=== PATIENT | female | born 1940 | race Caucasian/White ===

== ENCOUNTER 2017-10-17 12:08 | Outpatient (CLI) | payer OTHER | END 2017-10-17 12:09 | disposition home or self-care (01) | LOC: MWLC DTY 12:08 | PROVIDERS: ATTEND Family Medicine | DX: Z51.81 Encounter for therapeutic drug level monitoring (principal); I48.91 Unspecified atrial fibrillation; Z79.01 Long term (current) use of anticoagulants | CPT/HCPCS: 97802 ==

== ENCOUNTER 2018-04-04 12:52 | Inpatient (IN) | payer MEDICARE ==
[2018-04-04 14:35] LABS: #Eosinphils 0.1 thou/uL (0.0-0.7); #Lymphocytes 1.4 thou/uL (1.20-3.40); #Monocytes 0.5 thou/uL (0.11-0.59); #Neutrophils 4.8 thou/uL (1.40-6.50); %Basophils 0.3 % (0.0-1.0); %Eosinophils 1.6 % (0.0-10.0); %Lymphocytes 20.9 % (21.0-51.0); %Monocytes 7.3 % (0.0-10.0); %Neutrophils 69.9 % (42.0-75.0); Hemoglobin 15.4 g/dL (12.0-16.0); Mean Corpuscular HGB CONC 31.6 g/dL (32.0-36.0); Mean Corpuscular Hemoglobin 30.1 pg (27.0-31.0); Mean Corpuscular Volume 95.3 fL (78.0-98.0); Platelet Count 158 thou/uL (130-400); RBC Distribution Width 13.3 % (11.5-14.5); Red Blood Cell (RBC) Count 5.11 mill/uL (4.20-5.40); White Blood Cell (WBC) Count 6.9 thou/uL (4.8-10.8)
[2018-04-04 14:58] LABS: INR-International Normal Ratio 1.2; PTT 34.7 SEC (22.9-36.1); Prothrombin Time 14.9 SEC (12.0-14.7)
[2018-04-04 14:59] LABS: ALT (SGPT) 29 U/L (8-55); AST (SGOT) 28 U/L (5-34); Albumin 4.3 g/dL (3.4-4.8); Alkaline Phosphatase 78 U/L (40-150); Anion Gap 15 mmol/L (10-20); BUN (Urea Nitrogen) 12 mg/dL (9.8-20.1); Bilirubin, Total 1.5 mg/dL (0.2-1.2); CK (CPK) 46 U/L (29-168); Calc. Creatinine Clearance 0 mL/min (70-130); Carbon Dioxide 23 mmol/L (23-31); Chloride 104 mmol/L (98-107); Estimated GFR-MDRD 38; Globulin 3.4 g/dL (2.4-3.5); Glucose 253 mg/dL (83-110); Protein, Total 7.7 g/dL (6.0-8.3); Sodium 138 mmol/L (136-145)
[2018-04-04 15:04] LABS: CKMB 2.5 ng/mL (0-6.6); Troponin I 0.107 ng/mL (< 0.028)
[2018-04-04 15:07] LABS: Digoxin Less than 0.15 ng/mL (0.8-2.0)
--- NOTE | 2018-04-04 15:46 | RAD ---
UPRIGHT PORTABLE CHEST ONE VIEW: 04/04/18 HISTORY: 77-year-old female with history of dyspnea. There is cardiomegaly. Left ICD. Bilateral vascular congestion with some minimal interstitial and ethan eolar opacity changes in the right lung with bilateral pleural effusions, larger on the right side. T here is evidence for a hiatal hernia. Evidence for valvular replacement. IMPRESSION: Cardiomegaly. Bilateral vascular congestion with some increased interstitial markings bilaterally. Mo derate pleural changes including some pleural fluid or pleural thickening within the major fissure as well as costophrenic angle regions. Postop changes with what appears to be some valvular replacement and a left ICD. Atherosclerosis of the aorta with ectasia. Evidence for large hiatal hernia. Overall stable from 04/04/18. POS: FANG
[2018-04-04] MEDS ORDERED: Furosemide 40 MG/4 ML VIAL ONE (15:57)
[2018-04-04] MEDS ORDERED: Nitroglycerin 2% Ointment 1 INCH/1 GM Packet ONE (15:57)
[2018-04-04] MEDS ORDERED: Labetalol HCl 100 MG/20 ML VIAL ONE (17:12)
[2018-04-04 18:03] LABS: Troponin I 0.129 ng/mL (< 0.028)
[2018-04-04] MEDS ORDERED: Ondansetron PF 4 MG/2 ML Vial IVP PRN ×2 (18:08→18:52)
[2018-04-04] MEDS ORDERED: Ondansetron ODT 4 MG TAB SL PRN (18:08)
[2018-04-04] MEDS ORDERED: Dextrose 50% Abboject 50 ML SYRINGE SLOW IVP PRN (18:52)
[2018-04-04] MEDS ORDERED: Ondansetron ODT 4 MG TAB PO PRN (18:52)
[2018-04-04] MEDS ORDERED: hydrALAZINE 20 MG/ML VIAL SLOW IVP PRN (18:52)
[2018-04-04] MEDS ORDERED: HumaLOG 300 UNITS/3 ML VIAL SC PRN ×2 (18:52)
[2018-04-04] MEDS ORDERED: Dextrose 5% in Water 1,000 ML IV PRN (18:52)
[2018-04-04 21:06] LABS: Troponin I 0.103 ng/mL (< 0.028)
--- NOTE | 2018-04-04 23:12 | HP ---
PRIMARY CARE PHYSICIAN: Suzanne Dorna M.D. CHIEF COMPLAINT: Shortness of breath. HISTORY OF PRESENT ILLNESS: Ms. Collazo is a very pleasant 77-year-old female that has a history of n onischemic cardiomyopathy as well as hypertension and diabetes. She says that on Saturday she was dixie g shopping for a friend when she says she started getting short of breath and it got so bad that she had to try to find a chair to sit down and catch her breath. Since then it has gotten progressively worse to the point where she has shortness of breath with very minimal exertion. She also says that she cannot sleep because she cannot breathe. She has to try different positions trying to stay propp ed up, turning over using pillows, but has barely been able to get any rest. She feels like she has increase in leg swelling as well. When asked if she has had any chest pain, she denies this. No pal pitations, no discharges from the defibrillator. No nausea, no vomiting, no diaphoresis; however, th e shortness of breath got progressively worse until she had to come to the ER for evaluation and yadira tment. In the ER, she was given some IV Lasix as well as nitropatch was placed and she is feeling a bit better since then. REVIEW OF SYSTEMS: All systems are reviewed and are negative except for that mentioned in the histor y of present illness. 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 PAST SURGICAL HISTORY: She has had a tonsillectomy, cardiac catheterization, appendectomy, biventric ular pacer with AICD placed in 2013, cholecystectomy and breast biopsy. ALLERGIES: No known drug allergies. SOCIAL HISTORY: She is single. No children. She is a nonsmoker, nondrinker. She wishes to be a fu ll code; however, she would not want to be on life support for a long time, but is " FULL CODE." Her friend Allan Bruhs is her medical power of barber tool sharpener. FAMILY HISTORY: Unknown due to the fact that she is adopted. MEDICATIONS: She did not know the names and doses of her medicines right off the top of her head. S he says they are in her records and these include warfarin 2.5 mg daily, Aldactone 25 mg 1/2 tablet a day, Lexapro 10 mg daily, Lipitor 20 mg daily, levothyroxine 137 mcg daily, allopurinol 100 mg twice a day, Lasix 40 mg twice daily, digoxin 0.125 mcg daily, Coreg 6.25 mg twice a day, glipizide 10 mg 2 tablets in the morning and one at dinner. PHYSICAL EXAMINATION: GENERAL: She is alert and oriented. She appears to be in no acute distress. She is well-developed and well-nourished. VITAL SIGNS: Blood pressure was 160/120, heart rate 78, respiratory rate of 20, temperature is 97.4. HEENT: Pupils are equal, round, and reactive. Extraocular muscles are intact. Her sclerae are anic teric. Throat: There is no erythema, no exudates. NECK: No adenopathy, no bruits. LUNGS: She had some rales bilaterally and decreased breath sounds at the bases. No wheezing or rhon chi. CARDIOVASCULAR: She has a normal S1 and S2. She did have what appear to be an S3 gallop as well as grade 2/6 systolic murmur. ABDOMEN: Obese, it is soft, it is nontender, nondistended. Positive for bowel sounds. There is no rebound, no guarding, no organomegaly. EXTREMITIES: There is nonpitting edema bilaterally. No calf tenderness. No joint effusion or warmt h and she has got palpable dorsalis pedis pulses bilaterally. NEUROLOGIC: Cranial nerves II-XII are grossly intact and her muscle strength is 5/5 in both her uppe r and lower extremities. SKIN AND INTEGUMENT: There are no skin changes. No rash. IMAGING DATA AND LABORATORY DATA: Her EKG is ventricularly paced and that is by my reading. On her chest x-ray also by my reading, she has got significant cardiomegaly as well as bilateral interstitia l edema appears more on the right than on the left. The AICD with leads are noted. CBC; white blood cell count 6.9, hemoglobin 15.4, hematocrit is 48.7, platelet count is 158. Sodium 138, potassium 4 .0, chloride is 104, CO2 is 23, BUN of 12, creatinine 1.34, glucose is 254. Troponin is 0.107, BNP w as elevated at 2206. ASSESSMENT AND PLAN: This is a pleasant 77-year-old female that presents with dyspnea on exertion, r ales and on exam as well as radiographic evidence for failure. 1. Acute on chronic systolic heart failure. She will be placed in observation. Continue IV Lasix f or diuresis. It appears she has not had a recent echo at least in our facility. 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 2. Diabetes mellitus, type 2. We will need to reconcile and restart her home medications and place her on a sliding scale insulin. 3. Hypertension. Once again reconcile her medications and restart as indicated. 4. Hypothyroidism. We will check TSH and free T4 and restart her medications, adjust as needed and further recommendations are to follow.
[2018-04-04] MEDS ORDERED: Atorvastatin Calcium 20 MG TAB PO SCH (23:45)
[2018-04-04] MEDS ORDERED: Warfarin Sodium 2.5 MG TAB PO SCH (23:45)
[2018-04-04] MEDS ORDERED: Latanoprost 0.005% Ophth Soln 2.5 ml Bottle EA EYE SCH (23:45)
[2018-04-05] MEDS: Acetaminophen 325 MG TAB PO PRN (00:45)
[2018-04-05 04:53] LABS: #Basophils 0.1 thou/uL (0.0-0.2); #Eosinphils 0.1 thou/uL (0.0-0.7); #Lymphocytes 1.4 thou/uL (1.20-3.40); #Monocytes 0.6 thou/uL (0.11-0.59); #Neutrophils 4.6 thou/uL (1.40-6.50); %Eosinophils 0.9 % (0.0-10.0); %Lymphocytes 20.4 % (21.0-51.0); %Monocytes 8.6 % (0.0-10.0); Hemoglobin 14.7 g/dL (12.0-16.0); Mean Corpuscular Hemoglobin 30.5 pg (27.0-31.0); Mean Corpuscular Volume 95.6 fL (78.0-98.0); Mean Platelet Volume 9.2 fL (7.4-10.4); Platelet Count 150 thou/uL (130-400); RBC Distribution Width 13.1 % (11.5-14.5); White Blood Cell (WBC) Count 6.7 thou/uL (4.8-10.8)
[2018-04-05 05:12] LABS: Anion Gap 16 mmol/L (10-20); BUN (Urea Nitrogen) 15 mg/dL (9.8-20.1); Calc. Creatinine Clearance 40 mL/min (70-130); Calcium 9.9 mg/dL (7.8-10.44); Carbon Dioxide 20 mmol/L (23-31); Chloride 104 mmol/L (98-107); Estimated GFR-MDRD 38; Glucose 232 mg/dL (83-110); Potassium 3.2 mmol/L (3.5-5.1); Sodium 137 mmol/L (136-145)
[2018-04-05] MEDS ORDERED: Levothyroxine Sodium 112 MCG TAB PO SCH (06:00)
[2018-04-05] MEDS ORDERED: Furosemide 40 MG/4 ML VIAL SLOW IVP SCH (06:00)
[2018-04-05] MEDS ORDERED: Enoxaparin Sodium 30 MG/0.3 ML SYRINGE SC SCH (09:00)
[2018-04-05] MEDS ORDERED: Warfarin Sodium 1.25 MG HALF.TAB PO SCH (10:45)
[2018-04-05] MEDS ORDERED: Ferrous Sulfate 325 MG TAB PO SCH (11:45)
[2018-04-05] MEDS ORDERED: Potassium Chloride 10 MEQ TAB PO SCH (11:45)
[2018-04-05] MEDS ORDERED: Carvedilol 6.25 MG TAB PO SCH (11:45)
[2018-04-05] MEDS ORDERED: Spironolactone 25 MG TAB PO SCH (11:45)
[2018-04-05] MEDS ORDERED: Insulin Glargine 28 UNITS in Pre-Filled Syringe SC SCH (11:45)
[2018-04-05] MEDS ORDERED: Escitalopram Oxalate 10 mg Tablet PO SCH (11:45)
[2018-04-05] MEDS ORDERED: Allopurinol 100 MG TAB PO SCH (11:45)
[2018-04-05] MEDS ORDERED: Digoxin 0.125 MG TAB PO SCH ×2 (11:45→20:00)
[2018-04-05 11:55] LABS: INR-International Normal Ratio 1.2; Prothrombin Time 15.3 SEC (12.0-14.7)
[2018-04-05] MEDS: Furosemide 20 MG/2 ML VIAL SLOW IVP SCH (14:07)
--- NOTE | 2018-04-05 14:55 | PDOC.PN ---
- Subjective Encounter Start Date: 04/05/18 Encounter Start Time: 14:54 Subjective: nsg notes rev, cristobal ovn, no new c/o pt feels that her breathing is currently -: improved compared to yesterday after lasix - Objective Resuscitation Status: Resuscitation Status FULL:Full Resuscitation Vital Signs & Weight: Vital Signs (12 hours) Temp Pulse Resp BP BP Pulse Ox 04/05/18 12:14 97.8 F 77 16 139/87 93 L 04/05/18 12:12 139/87 04/05/18 12:11 77 04/05/18 07:36 97.3 F L 73 14 143/95 H 97 04/05/18 04:00 97.6 F 79 18 136/86 95 Weight Weight 160 lb 14.4 oz I&O: 04/04/18 04/05/18 04/06/18 06:59 06:59 06:59 Intake Total 280 240 Output Total 800 Balance -520 240 Result Diagrams: 04/05/18 04:01 04/05/18 04:01 Additional Labs: Accuchecks 04/05/18 04/05/18 04/04/18 12:05 05:24 20:55 POC Glucose 309 H 228 H 254 H Phys Exam - Physical Examination Constitutional: NAD lying in hosp bed HEENT: moist MMs Respiratory: no wheezing, no rales, no rhonchi, clear to auscultation bilateral diminished, marginal air mvmt with faint bibasilar crackles Cardiovascular: RRR, no significant murmur, no rub Gastrointestinal: soft, non-tender, no distention, positive bowel sounds Musculoskeletal: pulses present Psychiatric: normal affect, A&O x 3 Dx/Plan - Plan CHF exac continue with lasix 20mg IV BID pending ECHO results apprec cardiology c/s continue to monitor hx CHF continue home regimen otherwise HTN stable DM2 stable diet: cardiac, diabetic activity: as jarret dvt ppx Review of Systems - Medications/Allergies Allergies/Adverse Reactions: Allergies Allergy/AdvReac Type Severity Reaction Status Date / Time No Known Allergies Allergy Verified 09/16/15 20:07 Medications: Current Medications Acetaminophen (Tylenol) 650 mg PO Q4H PRN PRN Reason: Headache/Fever/Mild Pain (1-3) Last Admin: 04/05/18 00:45 Dose: 650 mg Allopurinol (Zyloprim) 100 mg PO BID REPLACED BY [facility] Atorvastatin Calcium (Lipitor) 20 mg PO HS REPLACED BY [facility] Carvedilol (Coreg) 6.25 mg PO BID REPLACED BY [facility] Dextrose/Water (Dextrose 50%) 25 gm SLOW IVP PRN PRN PRN Reason: Hypoglycemia Digoxin (Lanoxin) 0.125 mg PO DAILY REPLACED BY [facility] Escitalopram Oxalate (Lexapro) 10 mg PO DAILY REPLACED BY [facility] Ferrous Sulfate (Feosol) 325 mg PO DAILY REPLACED BY [facility] Furosemide (Lasix) 20 mg SLOW IVP 0600,1400 REPLACED BY [facility] Last Admin: 04/05/18 14:07 Dose: 20 mg Glipizide (Glucotrol Xl) 5 mg PO BID-AC REPLACED BY [facility] Glucagon (Glucagon) 1 mg IM PRN PRN PRN Reason: Hypoglycemia Hydralazine HCl (Apresoline) 10 mg SLOW IVP Q4H PRN PRN Reason: SBP > 180 and HR < 70 Dextrose/Water (D5w) 1,000 mls @ 0 mls/hr IV .Q0M PRN PRN Reason: Hypoglycemia Insulin Glargine 28 units/ (Miscellaneous Medication) 0.28 mls @ 0 mls/hr SC BID REPLACED BY [facility] Insulin Human Lispro (Humalog) 0 units SC .MILD SLIDING SCALE PRN PRN Reason: Mild Correctional Scale Last Admin: 04/05/18 12:21 Dose: 5 unit Insulin Human Lispro (Humalog) 0 units SC .BEDTIME SLIDING SC PRN PRN Reason: Bedtime Correctional Scale Last Admin: 04/05/18 05:23 Dose: 3 unit Latanoprost (Xalatan 0.005% [facility]) 1 drop EA EYE HS REPLACED BY [facility] Levothyroxine Sodium (Synthroid) 112 mcg PO 0600 REPLACED BY [facility] Miscellaneous Medication (Pharmacy To Dose) 1 each PO .WARFARIN REPLACED BY [facility] Ondansetron HCl (Zofran Odt) 4 mg PO Q6H PRN PRN Reason: Nausea/Vomiting Ondansetron HCl (Zofran) 4 mg IVP Q6H PRN PRN Reason: Nausea/Vomiting Potassium Chloride (Klor-Con 10) 10 meq PO QAM-WM REPLACED BY [facility] Sertraline HCl (Zoloft) 50 mg PO HS REPLACED BY [facility] Sertraline HCl (Zoloft) 50 mg PO HS REPLACED BY [facility] Spironolactone (Aldactone) 12.5 mg PO DAILY REPLACED BY [facility] Warfarin Sodium (Coumadin) 3.75 mg PO MoWeFr@1700 TYREL Warfarin Sodium (Coumadin) 1.25 mg PO SuTuThSa@1700 TYREL Warfarin Sodium (Coumadin) 4 mg PO 1700 REPLACED BY [facility] Stop: 04/05/18 19:00
[2018-04-05] MEDS ORDERED: Warfarin Sodium 2 MG TAB PO SCH (17:00)
[2018-04-05] MEDS ORDERED: Warfarin Sodium 2.5 MG TAB PO SCH (17:00)
[2018-04-05] MEDS ORDERED: Latanoprost 0.005% Ophth Soln 2.5 ml Bottle EA EYE SCH (21:00)
[2018-04-05] MEDS ORDERED: Atorvastatin Calcium 20 MG TAB PO SCH ×2 (21:00)
[2018-04-05] MEDS ORDERED: Furosemide 40 MG TAB PO SCH (21:00)
[2018-04-05] MEDS ORDERED: INSULIN DETEMIR 28 UNIT SQ SCH (21:00)
[2018-04-05] MEDS: Allopurinol 100 MG TAB PO SCH (21:01)
[2018-04-05] MEDS: Carvedilol 6.25 MG TAB PO SCH (21:01)
[2018-04-05] MEDS: Atorvastatin Calcium 40 MG TAB PO SCH (21:01)
[2018-04-05] MEDS: Insulin Glargine 28 UNITS in Pre-Filled Syringe SC SCH (21:01)
[2018-04-05] MEDS: Latanoprost 0.005% Ophth Soln 2.5 ml Bottle EA EYE SCH (21:01)
[2018-04-06] MEDS: Acetaminophen 325 MG TAB PO PRN (00:47)
--- NOTE | 2018-04-06 02:17 | CON ---
DATE OF CONSULTATION: 04/05/2018 HISTORY OF PRESENT ILLNESS: Naheed Collazo is a pleasant 77-year-old white female with longstanding history of systolic and diastolic congestive heart failure. She was cared for by Dr. Aburto for over a decade, but then decided to seek treatment elsewhere. She underwent cardiac catheterization in 07/2011 as well as 05/2013 with finding of normal coronary arteries. She apparently sought treatment and evaluation in [place]. It was recommended that she needed an ICD. On 08/28/2013, she underwent placement of a biventricular defibrillator which was apparent by looking at the chest x-ray. Also, there was no atrial lead because of her chronic atrial fibrillation. After placement of a biventricular defibrillator, she had improvement in her shortness of breath; however, she was admitted here on 10/14/2013 with increased shortness of breath. She was on Lasix 40 q.a.m. and this was increased to 40 b.i.d. and it did not appear that she had any significant diuresis. At that time, her blood pressure was in the 90s and 80s and carvedilol was reduced from 12.5 b.i.d. to 6.25 b.i.d. She was given Zaroxolyn and had excellent diuresis. She was only pacing 60% of the time and so digoxin was added to try to slow her rate. When she was discharged, digoxin was not on her discharge medicine list. On , she was seen by [facility] and it was felt by Electrophysiology on her previous EKG with QRS complex was actually fairly narrow. It was felt that she ultimately would do better with an intrinsic conduction whenever possible. The device was then programmed to VVI with a fixed rate of 60 per minute and rate response was turned off. I saw her in the office 1 week after that she denied any significant shortness of breath. Her furosemide was increased where she could take an afternoon dose several times per week. She then presented in 11/2013 with increased shortness of breath over 2-3 days prior to admission as well as increased leg edema. Digoxin was resumed for better rate control since at that time she was tachycardic. She then began to have problems with increasing aortic valve gradient. Ultimately, she underwent TAVR in 06/2016 at [facility] in [place]. When she was seen for followup in 01/2017 as well as in 08/2017, she was doing well. She has also been noted that her ejection fraction was 20%-25% when she was ventricularly pacing less than 75%. The pacemaker was reprogrammed from 60 to70 per minute and she was pacing 100% after that. Her last echo was in [facility] in 06/2017 and ejection fraction was 20% to 24%. She had been doing well until recently. She missed her appointment on 04/03. 3 or 4 days prior to that, she began to notice increasing dyspnea on exertion. She also had orthopnea and PND. She went to see Dr. Doran yesterday and was sent to the emergency room for further treatment. She denies any chest discomfort. She denies any fever or chills. PAST MEDICAL HISTORY: Severe cardiomyopathy, chronic atrial fibrillation, normal coronary arteries, hypercholesterolemia, type 2 diabetes, hypothyroidism , depression, chronic kidney disease. OPERATIONS: ICD placed in 2013, tonsillectomy, appendectomy, cholecystectomy, breast biopsy, and TAVR. MEDICATIONS: Allopurinol 100 b.i.d., atorvastatin 20 at bedtime, carvedilol 6.25 b.i.d., digoxin 0.125 daily, ferrous sulfate 325 daily, furosemide 40 at bedtime, Glucotrol 5 b.i.d., insulin 28 units b.i.d., levothyroxine 112 mcg daily, potassium 10 mEq q.a.m., sertraline 50 at bedtime, Aldactone 12.5 daily, warfarin. ALLERGIES: None. SOCIAL HISTORY: She does not smoke or drink. 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 FAMILY HISTORY: She is adopted. REVIEW OF SYSTEMS: Twelve-point review of systems otherwise unremarkable. PHYSICAL EXAMINATION: VITAL SIGNS: Blood pressure 140/84, pulse of 78. HEENT: PERRL. NECK: Supple. LUNGS: Chest is clear. CARDIAC: S1, S2 normal, without any S3, S4. There is a 2/6 systolic ejection murmur. ABDOMEN: Normal bowel sounds, without tenderness, organomegaly. EXTREMITIES: Revealed no clubbing, cyanosis or edema. NEUROLOGIC: Grossly intact. SKIN: Warm and dry. LABORATORY: EKG reveals ventricular pacing. CBC is unremarkable. INR 1.2, sodium 137, potassium 3.3, chloride 104, carbon dioxide 20, BUN 15, creatinine 1.33. BNP 2371. On 03/14/2018, cholesterol 142, triglycerides 123, HDL 35, LDL 82. Digoxin less than 0.15. IMPRESSION: 1. Severe nonischemic cardiomyopathy. 2. Status post biventricular implantable cardioverter-defibrillator placement. Interrogation of her device shows that around 03/10/2018, she began to collect fluid. Also, around this time it was noted that there was significant drop in the ventricular pacing from near 100% down to around 75%-80%. This may also correlate with digoxin level being nondetectable and she may have ran out or stopped that medication. 3. Normal coronary arteries. 4. Status post transcatheter aortic valve replacement. 5. Severe left ventricular dysfunction with most recent ejection fraction of 20 % to 25%. 6. Chronic atrial fibrillation. 7. Chronic kidney disease. 8. Hypercholesterolemia, poor control; and diabetic with LDL of 82. 9. Diabetes. 10. Hypothyroidism. 11. Depression. RECOMMENDATIONS: The patient currently is on IV furosemide 20 mg b.i.d. Her renal function will need to be watched closely. She will be given digoxin 0.5 mg p.o. since her level was essentially undetectable. Also, atorvastatin will be increased from 20 to 40 mg. We will follow the patient with you. ELLEND
[2018-04-06 06:15] LABS: Anion Gap 12 mmol/L (10-20); BUN (Urea Nitrogen) 18 mg/dL (9.8-20.1); Calc. Creatinine Clearance 32 mL/min (70-130); Calcium 9.5 mg/dL (7.8-10.44); Carbon Dioxide 29 mmol/L (23-31); Chloride 102 mmol/L (98-107); Estimated GFR-MDRD 32; Glucose 75 mg/dL (83-110); Potassium 3.2 mmol/L (3.5-5.1); Sodium 140 mmol/L (136-145)
[2018-04-06] MEDS: Furosemide 20 MG/2 ML VIAL SLOW IVP SCH ×2 (06:24→14:52)
[2018-04-06] MEDS: Levothyroxine Sodium 112 MCG TAB PO SCH (06:25)
[2018-04-06 06:29] LABS: INR-International Normal Ratio 1.2; Prothrombin Time 15.6 SEC (12.0-14.7)
[2018-04-06] MEDS: Allopurinol 100 MG TAB PO SCH ×2 (08:20→20:20)
[2018-04-06] MEDS: Carvedilol 6.25 MG TAB PO SCH ×2 (08:20→20:20)
[2018-04-06] MEDS: Spironolactone 25 MG TAB PO SCH (08:20)
[2018-04-06] MEDS: Escitalopram Oxalate 10 mg Tablet PO SCH (08:21)
[2018-04-06] MEDS: Digoxin 0.125 MG TAB PO SCH (08:21)
[2018-04-06] MEDS: Potassium Chloride 10 MEQ TAB PO SCH (08:21)
[2018-04-06] MEDS: Ferrous Sulfate 325 MG TAB PO SCH (08:21)
[2018-04-06] MEDS: Insulin Glargine 28 UNITS in Pre-Filled Syringe SC SCH ×2 (08:22→20:18)
[2018-04-06] MEDS ORDERED: Calcium Carbonate 500 MG ChewTAB PO PRN (13:02)
[2018-04-06] MEDS ORDERED: Mag-Al 1200 mg/1200 mg/30 ML UDCUP PO PRN (13:02)
--- NOTE | 2018-04-06 15:08 | PDOC.PN ---
- Subjective Encounter Start Date: 04/06/18 Encounter Start Time: 15:06 Subjective: generally report feeling better, no new c/o, is worried about her 2 cats at -: home - Objective Resuscitation Status: Resuscitation Status FULL:Full Resuscitation Vital Signs & Weight: Vital Signs (12 hours) Temp Pulse Pulse Pulse Resp BP BP 04/06/18 13:09 92 76 108/61 04/06/18 11:23 98.0 F 79 16 04/06/18 07:10 97.6 F 71 16 04/06/18 04:00 98.4 F 71 18 103/58 L BP BP Pulse Ox 04/06/18 13:09 98/57 L 04/06/18 11:23 108/61 93 L 04/06/18 07:10 114/65 92 L 04/06/18 04:00 94 L Weight Weight 154 lb 12.8 oz I&O: 04/05/18 04/06/18 04/07/18 06:59 06:59 06:59 Intake Total 280 860 Output Total 800 300 Balance -520 560 Result Diagrams: 04/05/18 04:01 04/06/18 05:34 Additional Labs: Accuchecks 04/06/18 04/06/18 04/05/18 11:29 06:24 20:49 POC Glucose 168 H 72 150 H 04/05/18 16:59 POC Glucose 119 H Phys Exam - Physical Examination lying in hospital bed Dx/Plan - Plan - Physical Examination Constitutional: NAD lying in hosp bed HEENT: moist MMs Respiratory: no wheezing, no rales, no rhonchi, clear to auscultation bilateral diminished, marginal air mvmt with faint bibasilar crackles Cardiovascular: RRR, no significant murmur, no rub Gastrointestinal: soft, non-tender, no distention, positive bowel sounds Musculoskeletal: pulses present Psychiatric: normal affect, A&O x 3 Dx/Plan - Plan CHF exac decrease lasix back to home dosing today repeat BMP in AM due to renal insufficiency today apprec cardiology c/s continue to monitor hx CHF continue home regimen otherwise acute renal insufficiency likely pre-renal from lasix utilization as above HTN stable DM2 stable diet: cardiac, diabetic activity: as jarret, apprec OT c/s - pt states she drove herself here and has her car here and will drive herself back. due to concerns for weakness and safety, OT will also eval the patient dvt ppx Review of Systems - Medications/Allergies Allergies/Adverse Reactions: Allergies Allergy/AdvReac Type Severity Reaction Status Date / Time No Known Allergies Allergy Verified 09/16/15 20:07 Medications: Current Medications Acetaminophen (Tylenol) 650 mg PO Q4H PRN PRN Reason: Headache/Fever/Mild Pain (1-3) Last Admin: 04/06/18 00:47 Dose: 650 mg Al Hydroxide/Mg Hydroxide (Maalox) 30 ml PO QIDPRN PRN PRN Reason: Indigestion Allopurinol (Zyloprim) 100 mg PO BID [facility] Last Admin: 04/06/18 08:20 Dose: 100 mg Atorvastatin Calcium (Lipitor) 40 mg PO HS [facility] Last Admin: 04/05/18 21:01 Dose: 40 mg Calcium Carbonate (Tums) 1,000 mg PO Q4H PRN PRN Reason: .INDIGESTION Carvedilol (Coreg) 6.25 mg PO BID [facility] Last Admin: 04/06/18 08:20 Dose: 6.25 mg Dextrose/Water (Dextrose 50%) 25 gm SLOW IVP PRN PRN PRN Reason: Hypoglycemia Digoxin (Lanoxin) 0.125 mg PO DAILY [facility] Last Admin: 04/06/18 08:21 Dose: 0.125 mg Escitalopram Oxalate (Lexapro) 10 mg PO DAILY [facility] Last Admin: 04/06/18 08:21 Dose: 10 mg Ferrous Sulfate (Feosol) 325 mg PO DAILY [facility] Last Admin: 04/06/18 08:21 Dose: 325 mg Furosemide (Lasix) 20 mg SLOW IVP 0600,1400 [facility] Last Admin: 04/06/18 14:52 Dose: Not Given Glipizide (Glucotrol Xl) 5 mg PO BID-AC [facility] Last Admin: 04/06/18 08:21 Dose: 5 mg Glucagon (Glucagon) 1 mg IM PRN PRN PRN Reason: Hypoglycemia Hydralazine HCl (Apresoline) 10 mg SLOW IVP Q4H PRN PRN Reason: SBP > 180 and HR < 70 Dextrose/Water (D5w) 1,000 mls @ 0 mls/hr IV .Q0M PRN PRN Reason: Hypoglycemia Insulin Glargine 28 units/ (Miscellaneous Medication) 0.28 mls @ 0 mls/hr SC BID [facility] Last Admin: 04/06/18 08:22 Dose: 0.28 mls Insulin Human Lispro (Humalog) 0 units SC .MILD SLIDING SCALE PRN PRN Reason: Mild Correctional Scale Last Admin: 04/05/18 12:21 Dose: 5 unit Insulin Human Lispro (Humalog) 0 units SC .BEDTIME SLIDING SC PRN PRN Reason: Bedtime Correctional Scale Last Admin: 04/05/18 05:23 Dose: 3 unit Latanoprost (Xalatan 0.005% Ophth Soln) 1 drop EA EYE [facility] Last Admin: 04/05/18 21:01 Dose: 1 drop Levothyroxine Sodium (Synthroid) 112 mcg PO 0600 [facility] Last Admin: 04/06/18 06:25 Dose: 112 mcg Miscellaneous Medication (Pharmacy To Dose) 1 each PO .WARFARIN [facility] Ondansetron HCl (Zofran Odt) 4 mg PO Q6H PRN PRN Reason: Nausea/Vomiting Last Admin: 04/06/18 00:47 Dose: 4 mg Ondansetron HCl (Zofran) 4 mg IVP Q6H PRN PRN Reason: Nausea/Vomiting Potassium Chloride (Klor-Con 10) 10 meq PO QAM[facility] Last Admin: 04/06/18 08:21 Dose: 10 meq Sertraline HCl (Zoloft) 50 mg PO [facility] Last Admin: 04/05/18 21:01 Dose: 50 mg Spironolactone (Aldactone) 12.5 mg PO DAILY [facility] Last Admin: 04/06/18 08:20 Dose: 12.5 mg Warfarin Sodium (Coumadin) 5 mg PO 1700 [facility]
[2018-04-06] MEDS: Warfarin Sodium 5 MG TAB PO SCH (16:37)
[2018-04-06] MEDS ORDERED: Warfarin Sodium 3 MG TAB PO SCH (17:00)
[2018-04-06] MEDS ORDERED: Warfarin Sodium 1.25 MG HALF.TAB PO SCH (17:00)
[2018-04-06] MEDS: Atorvastatin Calcium 40 MG TAB PO SCH (20:20)
[2018-04-06] MEDS: Latanoprost 0.005% Ophth Soln 2.5 ml Bottle EA EYE SCH (20:22)
[2018-04-07 05:03] LABS: Platelet Count 155 thou/uL (130-400)
[2018-04-07 05:22] LABS: Anion Gap 15 mmol/L (10-20); BUN (Urea Nitrogen) 21 mg/dL (9.8-20.1); Calc. Creatinine Clearance 30 mL/min (70-130); Calcium 9.3 mg/dL (7.8-10.44); Carbon Dioxide 25 mmol/L (23-31); Chloride 101 mmol/L (98-107); Estimated GFR-MDRD 29; Glucose 150 mg/dL (83-110); Potassium 3.4 mmol/L (3.5-5.1); Sodium 138 mmol/L (136-145)
[2018-04-07] MEDS: Levothyroxine Sodium 112 MCG TAB PO SCH (05:45)
[2018-04-07 05:47] LABS: INR-International Normal Ratio 1.5; Prothrombin Time 17.9 SEC (12.0-14.7)
[2018-04-07] MEDS ORDERED: Furosemide 40 MG TAB PO SCH (09:00)
[2018-04-07] MEDS ORDERED: Warfarin Sodium 2.5 MG TAB PO SCH (09:00)
[2018-04-07] MEDS: Allopurinol 100 MG TAB PO SCH ×2 (09:23→21:14)
[2018-04-07] MEDS: Potassium Chloride 10 MEQ TAB PO SCH (09:23)
[2018-04-07] MEDS: Carvedilol 6.25 MG TAB PO SCH ×2 (09:23→21:17)
[2018-04-07] MEDS: Escitalopram Oxalate 10 mg Tablet PO SCH (09:24)
[2018-04-07] MEDS: Digoxin 0.125 MG TAB PO SCH (09:24)
[2018-04-07] MEDS: Ferrous Sulfate 325 MG TAB PO SCH (09:24)
[2018-04-07] MEDS: Spironolactone 25 MG TAB PO SCH (09:34)
[2018-04-07] MEDS: Insulin Glargine 28 UNITS in Pre-Filled Syringe SC SCH ×2 (09:35→21:18)
--- NOTE | 2018-04-07 10:57 | PDOC.PN ---
- Subjective Encounter Start Date: 04/07/18 Encounter Start Time: 10:55 Subjective: nsg notes rev, cristobal ovn, no new c/o today, breathing still ok -: appetite ok - Objective Resuscitation Status: Resuscitation Status FULL:Full Resuscitation Vital Signs & Weight: Vital Signs (12 hours) Temp Pulse Resp BP Pulse Ox 04/07/18 09:24 74 04/07/18 08:03 97.9 F 73 16 115/62 92 L 04/07/18 07:30 92 L 04/07/18 03:09 98.0 F 74 16 132/70 92 L Weight Weight 156 lb I&O: 04/06/18 04/07/18 04/08/18 06:59 06:59 06:59 Intake Total 860 800 Output Total 300 Balance 560 800 Result Diagrams: 04/07/18 04:32 04/07/18 04:32 Additional Labs: Accuchecks 04/07/18 04/07/18 04/06/18 03:48 03:09 20:17 POC Glucose 116 H 68 L 137 H 04/06/18 04/06/18 16:32 11:29 POC Glucose 86 168 H Phys Exam - Physical Examination Constitutional: NAD Dx/Plan - Plan - Physical Examination Constitutional: NAD lying in hosp bed HEENT: moist MMs Respiratory: no wheezing, no rales, no rhonchi, clear to auscultation bilateral diminished, marginal air mvmt Cardiovascular: RRR, no significant murmur, no rub Gastrointestinal: soft, non-tender, no distention, positive bowel sounds Musculoskeletal: pulses present Psychiatric: normal affect, A&O x 3 Dx/Plan - Plan CHF exac on chronic d/c lasix today due to worsening renal function apprec cardiology c/s continue to monitor - high risk for recurrence unfortunately please see cardiology note for functional NYHA class acute renal injury likely from lasix utilization as above will hold lasix and closely monitor respiratory status and status of CHF - high risk of recurrent CHF exacerbation HTN stable DM2 stable diet: cardiac, diabetic activity: as jarret, apprec OT c/s - pt states she drove herself here and has her car here and will drive herself back. due to concerns for weakness and safety, OT will also eval the patient dvt ppx d/w pt at bedside Review of Systems - Medications/Allergies Allergies/Adverse Reactions: Allergies Allergy/AdvReac Type Severity Reaction Status Date / Time No Known Allergies Allergy Verified 09/16/15 20:07 Medications: Current Medications Acetaminophen (Tylenol) 650 mg PO Q4H PRN PRN Reason: Headache/Fever/Mild Pain (1-3) Last Admin: 04/06/18 00:47 Dose: 650 mg Al Hydroxide/Mg Hydroxide (Maalox) 30 ml PO QIDPRN PRN PRN Reason: Indigestion Allopurinol (Zyloprim) 100 mg PO BID [facility] Last Admin: 04/07/18 09:23 Dose: 100 mg Atorvastatin Calcium (Lipitor) 40 mg PO HS [facility] Last Admin: 04/06/18 20:20 Dose: 40 mg Calcium Carbonate (Tums) 1,000 mg PO Q4H PRN PRN Reason: .INDIGESTION Carvedilol (Coreg) 6.25 mg PO BID [facility] Last Admin: 04/07/18 09:23 Dose: 6.25 mg Dextrose/Water (Dextrose 50%) 25 gm SLOW IVP PRN PRN PRN Reason: Hypoglycemia Digoxin (Lanoxin) 0.125 mg PO DAILY [facility] Last Admin: 04/07/18 09:24 Dose: 0.125 mg Escitalopram Oxalate (Lexapro) 10 mg PO DAILY [facility] Last Admin: 04/07/18 09:24 Dose: 10 mg Ferrous Sulfate (Feosol) 325 mg PO DAILY [facility] Last Admin: 04/07/18 09:24 Dose: 325 mg Glipizide (Glucotrol Xl) 5 mg PO BID-AC [facility] Last Admin: 04/07/18 09:23 Dose: 5 mg Glucagon (Glucagon) 1 mg IM PRN PRN PRN Reason: Hypoglycemia Hydralazine HCl (Apresoline) 10 mg SLOW IVP Q4H PRN PRN Reason: SBP > 180 and HR < 70 Dextrose/Water (D5w) 1,000 mls @ 0 mls/hr IV .Q0M PRN PRN Reason: Hypoglycemia Insulin Glargine 28 units/ (Miscellaneous Medication) 0.28 mls @ 0 mls/hr SC BID [facility] Last Admin: 04/07/18 09:35 Dose: 0.28 mls Insulin Human Lispro (Humalog) 0 units SC .MILD SLIDING SCALE PRN PRN Reason: Mild Correctional Scale Last Admin: 04/05/18 12:21 Dose: 5 unit Insulin Human Lispro (Humalog) 0 units SC .BEDTIME SLIDING SC PRN PRN Reason: Bedtime Correctional Scale Last Admin: 04/05/18 05:23 Dose: 3 unit Latanoprost (Xalatan 0.005% Ophth Soln) 1 drop EA [facility] Last Admin: 04/06/18 20:22 Dose: 1 drop Levothyroxine Sodium (Synthroid) 112 mcg PO 0600 [facility] Last Admin: 04/07/18 05:45 Dose: 112 mcg Miscellaneous Medication (Pharmacy To Dose) 1 each PO .WARFARIN [facility] Ondansetron HCl (Zofran Odt) 4 mg PO Q6H PRN PRN Reason: Nausea/Vomiting Last Admin: 04/06/18 00:47 Dose: 4 mg Ondansetron HCl (Zofran) 4 mg IVP Q6H PRN PRN Reason: Nausea/Vomiting Potassium Chloride (Klor-Con 10) 10 meq PO QA-[facility] Last Admin: 04/07/18 09:23 Dose: 10 meq Sertraline HCl (Zoloft) 50 mg PO [facility] Last Admin: 04/06/18 20:20 Dose: 50 mg Spironolactone (Aldactone) 12.5 mg PO DAILY [facility] Last Admin: 04/07/18 09:34 Dose: 12.5 mg Warfarin Sodium (Coumadin) 5 mg PO 1700 [facility] Last Admin: 04/06/18 16:37 Dose: 5 mg
[2018-04-07] MEDS: Warfarin Sodium 5 MG TAB PO SCH (16:44)
[2018-04-07] MEDS ORDERED: Warfarin Sodium 3.75 MG HALF.TAB PO SCH (17:00)
[2018-04-07] MEDS: Atorvastatin Calcium 40 MG TAB PO SCH (21:15)
[2018-04-07] MEDS: Latanoprost 0.005% Ophth Soln 2.5 ml Bottle EA EYE SCH (21:18)
[2018-04-08 05:14] LABS: INR-International Normal Ratio 1.9; Prothrombin Time 21.5 SEC (12.0-14.7)
[2018-04-08 05:20] VITALS: BMI 26.1
[2018-04-08 05:33] LABS: Anion Gap 14 mmol/L (10-20); BUN (Urea Nitrogen) 21 mg/dL (9.8-20.1); Calc. Creatinine Clearance 34 mL/min (70-130); Carbon Dioxide 27 mmol/L (23-31); Chloride 101 mmol/L (98-107); Estimated GFR-MDRD 34; Glucose 79 mg/dL (83-110); Potassium 3.5 mmol/L (3.5-5.1); Sodium 138 mmol/L (136-145)
[2018-04-08] MEDS: Levothyroxine Sodium 112 MCG TAB PO SCH (07:29)
[2018-04-08] MEDS: Carvedilol 6.25 MG TAB PO SCH (09:03)
[2018-04-08] MEDS: Potassium Chloride 10 MEQ TAB PO SCH (09:03)
[2018-04-08] MEDS: Allopurinol 100 MG TAB PO SCH (09:03)
[2018-04-08] MEDS: Digoxin 0.125 MG TAB PO SCH (09:04)
[2018-04-08] MEDS: Spironolactone 25 MG TAB PO SCH (09:05)
[2018-04-08] MEDS: Ferrous Sulfate 325 MG TAB PO SCH (09:05)
[2018-04-08] MEDS: Insulin Glargine 28 UNITS in Pre-Filled Syringe SC SCH (09:05)
[2018-04-08] MEDS: Escitalopram Oxalate 10 mg Tablet PO SCH (09:05)
[2018-04-08] MEDS ORDERED: Potassium Chloride 20 MEQ TAB PO SCH (11:00)
[2018-04-08 12:25] LABS: Hemoglobin A1c 8.5 % (4.0-6.0)
[2018-04-08 15:57] VITALS: BP 140/67; TEMP 97.9
[2018-04-08] MEDS: Warfarin Sodium 5 MG TAB PO SCH (16:27)
== END 2018-04-08 16:45 | disposition home health service (06) | DRG 291 ==
LOC: ERS 12:52 → OBSVTOIN 16:48 → 2SW 16:48
PROVIDERS: ADMIT Internal Medicine; ATTEND Internal Medicine
DX: I13.0 Hypertensive heart and chronic kidney disease with heart failure and stage 1 through stage 4 chronic kidney disease, or unspecified chronic kidney disease (principal); I50.23 Acute on chronic systolic (congestive) heart failure; N17.9 Acute kidney failure, unspecified; I42.8 Other cardiomyopathies; N18.3 Chronic kidney disease, stage 3 (moderate); E78.5 Hyperlipidemia, unspecified; E11.22 Type 2 diabetes mellitus with diabetic chronic kidney disease; I35.0 Nonrheumatic aortic (valve) stenosis; Z95.810 Presence of automatic (implantable) cardiac defibrillator; D64.9 Anemia, unspecified; I48.2 Chronic atrial fibrillation; Z79.01 Long term (current) use of anticoagulants; E03.9 Hypothyroidism, unspecified; Z79.899 Other long term (current) drug therapy; Z95.2 Presence of prosthetic heart valve; F32.9 Major depressive disorder, single episode, unspecified
CPT/HCPCS: 36415; 36416; 71045; 80048; 80053; 80162; 82550; 82553; 83036; 83880; 84484; 85014; 85018; 85025; 85049; 85610; 85730; 93005; 93306; 93798; 96374; 96375; G8987-GO-CI; G8988-GO-CI; G8989-GO-CI; J1940; Q0162

== ENCOUNTER 2018-04-12 09:31 | Emergency (ER) | payer MEDICARE ==
[2018-04-12 10:07] LABS: #Eosinphils 0.2 thou/uL (0.0-0.7); #Lymphocytes 1.4 thou/uL (1.20-3.40); #Monocytes 0.6 thou/uL (0.11-0.59); #Neutrophils 4.8 thou/uL (1.40-6.50); %Basophils 0.5 % (0.0-1.0); %Eosinophils 2.9 % (0.0-10.0); %Lymphocytes 19.7 % (21.0-51.0); %Monocytes 8.7 % (0.0-10.0); %Neutrophils 68.3 % (42.0-75.0); Mean Corpuscular HGB CONC 32.4 g/dL (32.0-36.0); Mean Corpuscular Volume 95.6 fL (78.0-98.0); Mean Platelet Volume 9.3 fL (7.4-10.4); Platelet Count 202 thou/uL (130-400); RBC Distribution Width 13.2 % (11.5-14.5); Red Blood Cell (RBC) Count 5.15 mill/uL (4.20-5.40); White Blood Cell (WBC) Count 7.1 thou/uL (4.8-10.8)
[2018-04-12 10:16] LABS: INR-International Normal Ratio 1.8; PTT 42.9 SEC (22.9-36.1); Prothrombin Time 20.9 SEC (12.0-14.7)
[2018-04-12 10:26] LABS: Digoxin 0.21 ng/mL (0.8-2.0)
[2018-04-12 10:31] LABS: CKMB 3.1 ng/mL (0-6.6); Troponin I 0.101 ng/mL (< 0.028)
[2018-04-12 11:26] LABS: Albumin 3.9 g/dL (3.4-4.8)
[2018-04-12 11:28] LABS: Calcium 9.6 mg/dL (7.8-10.44); Chloride 101 mmol/L (98-107); Potassium 4.5 mmol/L (3.5-5.1); Sodium 139 mmol/L (136-145)
[2018-04-12 11:29] LABS: Globulin 3.9 g/dL (2.4-3.5); Glucose 147 mg/dL (83-110); Protein, Total 7.8 g/dL (6.0-8.3)
[2018-04-12 11:30] LABS: Anion Gap 21 mmol/L (10-20); Carbon Dioxide 22 mmol/L (23-31)
[2018-04-12 11:31] LABS: Bilirubin, Total 1.2 mg/dL (0.2-1.2)
[2018-04-12 11:32] LABS: Alkaline Phosphatase 72 U/L (40-150); Calc. Creatinine Clearance 0 mL/min (70-130); Estimated GFR-MDRD 38
[2018-04-12 11:33] LABS: BUN (Urea Nitrogen) 21 mg/dL (9.8-20.1)
[2018-04-12 11:34] LABS: AST (SGOT) 32 U/L (5-34)
[2018-04-12 11:35] LABS: ALT (SGPT) 17 U/L (8-55); CK (CPK) 47 U/L (29-168)
--- NOTE | 2018-04-12 12:37 | RAD ---
PORTABLE CHEST: COMPARISON: 04/04/2018 study. HISTORY: Weakness. History of congestive heart failure. Fluid overload. FINDINGS: Heart size is enlarged. There is an internal defibrillator present. Some minimal parenchymal densit y in the right base is felt to be fairly similar to the prior examination. Some of the changes in th e right mid lung field are less prominent. IMPRESSION: Cardiomegaly with some slight increased density in the right base similar to the prior examination. Some of the right mid lung field parenchymal changes have improved. No new process. POS: [facility]
== END 2018-04-12 12:57 | disposition home or self-care (01) ==
LOC: ERS 09:31
DX: I13.0 Hypertensive heart and chronic kidney disease with heart failure and stage 1 through stage 4 chronic kidney disease, or unspecified chronic kidney disease (principal); I50.9 Heart failure, unspecified; N18.3 Chronic kidney disease, stage 3 (moderate); M62.81 Muscle weakness (generalized); E11.9 Type 2 diabetes mellitus without complications; E78.5 Hyperlipidemia, unspecified; D64.9 Anemia, unspecified; I48.91 Unspecified atrial fibrillation; F32.9 Major depressive disorder, single episode, unspecified; Z79.899 Other long term (current) drug therapy; Z79.01 Long term (current) use of anticoagulants
CPT/HCPCS: 71045; 80053; 80162; 82550; 82553; 83880; 84484; 85025; 85610; 85730; 93005

== ENCOUNTER 2018-06-15 10:44 | Emergency (ER) | payer MEDICARE ==
[2018-06-15] MEDS ORDERED: Adacel (T-DAP) 0.5 ML SYRINGE ONE (11:40)
--- NOTE | 2018-06-15 12:00 | CT ---
CT BRAIN WITHOUT CONTRAST: Date: 06/15/18 HISTORY: Trauma. Fall. FINDINGS: Mild atrophy. Small right posterior parietal soft tissue contusion. No acute hemorrhage or infarct. N o midline shift or mass effect. Right middle cerebellar peduncle calcification is similar. Calvarium is intact. Paranasal sinuses and mastoids are clear. IMPRESSION: Small right posterior parietal soft tissue contusion without acute post-traumatic intracranial sequel ae. POS: [facility]
--- NOTE | 2018-06-15 12:04 | CT ---
CT CERVICAL SPINE WITHOUT CONTRAST: Date: 06/15/18 HISTORY: Trauma. Fall. COMPARISON: None. FINDINGS: The occipital condyles are intact. The odontoid process is intact. There is some scarring in the lung apices. The paraspinal soft tissues are unremarkable. IMPRESSION: No acute fracture or malalignment of the cervical spine. POS: [facility]
== END 2018-06-15 12:30 | disposition home or self-care (01) ==
LOC: ERS 10:44
DX: S00.03XA Contusion of scalp, initial encounter (principal); E78.5 Hyperlipidemia, unspecified; E03.9 Hypothyroidism, unspecified; I12.0 Hypertensive chronic kidney disease with stage 5 chronic kidney disease or end stage renal disease; N18.3 Chronic kidney disease, stage 3 (moderate); E11.22 Type 2 diabetes mellitus with diabetic chronic kidney disease; D64.9 Anemia, unspecified; I48.91 Unspecified atrial fibrillation; F32.9 Major depressive disorder, single episode, unspecified; Z79.01 Long term (current) use of anticoagulants; Z79.899 Other long term (current) drug therapy; W18.30XA Fall on same level, unspecified, initial encounter
CPT/HCPCS: 70450; 72125; 90471; 90715

== ENCOUNTER 2018-06-20 21:51 | Emergency (ER) | payer MEDICARE ==
[2018-06-20 22:26] LABS: #Basophils 0.1 thou/uL (0.0-0.2); #Eosinphils 0.3 thou/uL (0.0-0.7); #Monocytes 0.5 thou/uL (0.11-0.59); #Neutrophils 5.6 thou/uL (1.40-6.50); %Eosinophils 4.4 % (0.0-10.0); %Lymphocytes 13.5 % (21.0-51.0); %Monocytes 6.3 % (0.0-10.0); %Neutrophils 74.9 % (42.0-75.0); Hemoglobin 12.2 g/dL (12.0-16.0); Mean Corpuscular HGB CONC 32.6 g/dL (32.0-36.0); Mean Corpuscular Hemoglobin 30.9 pg (27.0-31.0); Mean Corpuscular Volume 94.6 fL (78.0-98.0); Mean Platelet Volume 8.5 fL (7.4-10.4); Platelet Count 195 thou/uL (130-400); RBC Distribution Width 14.2 % (11.5-14.5); Red Blood Cell (RBC) Count 3.94 mill/uL (4.20-5.40); White Blood Cell (WBC) Count 7.4 thou/uL (4.8-10.8)
[2018-06-20] MEDS ORDERED: Insulin Regular 300 UNITS/3 ML VIAL ONE (22:26)
[2018-06-20 22:32] LABS: Base Excess-Venous 5.4 mmol/L (0 (+/- 2.5)); Bicarbonate (HCO3v) 30.7 mmol/L (22.0-29.0); CO2 Tension (PvCO2) 46.4 mmHg (41.0-51.0); Hemoglobin - Calc 13.7 g/dL (12.0-18.0); O2 Tension (PvO2) 40.9 mmHg (35.0-45.0); Potassium 3.3 mmol/L (3.4-4.7); T. Carbon Dioxide 32.1 mmol/L (1.0-85.0); pH (Venous) 7.429 (7.35-7.45); vO2 Saturation-calc 76.9 % (94-98)
[2018-06-20 22:45] LABS: ALT (SGPT) 15 U/L (8-55); AST (SGOT) 13 U/L (5-34); Albumin 3.6 g/dL (3.4-4.8); Alkaline Phosphatase 81 U/L (40-150); Anion Gap 16 mmol/L (10-20); BUN (Urea Nitrogen) 24 mg/dL (9.8-20.1); Bilirubin, Total 0.8 mg/dL (0.2-1.2); Calc. Creatinine Clearance 0 mL/min (70-130); Calcium 9.1 mg/dL (7.8-10.44); Carbon Dioxide 28 mmol/L (23-31); Chloride 95 mmol/L (98-107); Estimated GFR-MDRD 30; Globulin 3.1 g/dL (2.4-3.5); Glucose 409 mg/dL (83-110); Potassium 3.6 mmol/L (3.5-5.1); Protein, Total 6.7 g/dL (6.0-8.3); Sodium 135 mmol/L (136-145)
[2018-06-20 23:21] LABS: Bilirubin Negative (Negative); Blood, Urine Negative (Negative); Clarity CLEAR (Clear); Glucose, Urine (Dipstick) >=1000 mg/dL (Negative); Leukocyte Trace (Negative); Nitrite Negative (Negative); Protein, Urine (Dipstick) Negative (Neg-Trace); Specific Gravity, Urine 1.013 (1.002-1.036); Urobilinogen 0.2 mg/dL (0.2-1.0); pH, Urine 6.5 (5.0-9.0)
[2018-06-20 23:23] LABS: Bacteria/HPF None Seen HPF (None Seen); Hyaline Casts/LPF 0-3 HYALINE CAST LPF (0-3 Hyaline); Pathc Cast-AUWi Flag 0.14 (0-2.49); RBC/HPF 0-3 HPF (0-3); Squamous Epithelial 0-3 HPF (0-3); WBC/HPF 0-3 HPF (0-3)
== END 2018-06-20 23:27 ==
LOC: ERS 21:51
DX: E11.65 Type 2 diabetes mellitus with hyperglycemia (principal); I13.0 Hypertensive heart and chronic kidney disease with heart failure and stage 1 through stage 4 chronic kidney disease, or unspecified chronic kidney disease; I50.9 Heart failure, unspecified; N18.3 Chronic kidney disease, stage 3 (moderate); D63.1 Anemia in chronic kidney disease; F32.9 Major depressive disorder, single episode, unspecified; E78.5 Hyperlipidemia, unspecified; Z79.4 Long term (current) use of insulin; Z79.01 Long term (current) use of anticoagulants; Z79.899 Other long term (current) drug therapy
CPT/HCPCS: 36415; 36416; 80053; 81003; 81015; 82330; 82803; 85025; 99285; J1815

== ENCOUNTER 2019-07-28 05:02 | Inpatient (IN) | payer MEDICARE ==
[2019-07-28] MEDS ORDERED: Furosemide 40 MG/4 ML VIAL ONE (05:15)
[2019-07-28 05:30] LABS: #Eosinphils 0.1 thou/uL (0.0-0.7); #Lymphocytes 1.4 thou/uL (1.20-3.40); #Monocytes 0.4 thou/uL (0.11-0.59); #Neutrophils 10.2 thou/uL (1.40-6.50); %Eosinophils 1.2 % (0.0-10.0); %Lymphocytes 11.1 % (21.0-51.0); %Monocytes 3.4 % (0.0-10.0); %Neutrophils 84.3 % (42.0-75.0); Hemoglobin 15.6 g/dL (12.0-16.0); Mean Corpuscular HGB CONC 30.2 g/dL (32.0-36.0); Mean Corpuscular Hemoglobin 29.8 pg (27.0-31.0); Mean Corpuscular Volume 98.4 fL (78.0-98.0); Mean Platelet Volume 8.6 fL (7.4-10.4); Platelet Count 185 thou/uL (130-400); RBC Distribution Width 13.9 % (11.5-14.5); Red Blood Cell (RBC) Count 5.24 mill/uL (4.20-5.40); White Blood Cell (WBC) Count 12.1 thou/uL (4.8-10.8)
[2019-07-28] MEDS ORDERED: Nitroglycerin 2% Ointment 1 INCH/1 GM Packet ONE (05:39)
[2019-07-28 05:48] LABS: ALT (SGPT) 38 U/L (8-55); AST (SGOT) 45 U/L (5-34); Albumin 4.3 g/dL (3.4-4.8); Alkaline Phosphatase 101 U/L (40-110); Anion Gap 16 mmol/L (10-20); BUN (Urea Nitrogen) 15 mg/dL (9.8-20.1); Bilirubin, Total 1.1 mg/dL (0.2-1.2); Calc. Creatinine Clearance 0 mL/min (70-130); Calcium 10.2 mg/dL (7.8-10.44); Carbon Dioxide 29 mmol/L (23-31); Chloride 98 mmol/L (98-107); Estimated GFR-MDRD 34; Globulin 3.6 g/dL (2.4-3.5); Glucose 178 mg/dL (83-110); Potassium 3.5 mmol/L (3.5-5.1); Protein, Total 7.9 g/dL (6.0-8.3); Sodium 139 mmol/L (136-145)
[2019-07-28] MEDS ORDERED: cefTRIAXone\\ROCEPHIN 2 GM VIAL ONE (06:05)
[2019-07-28 06:11] LABS: CKMB 3.4 ng/mL (0-6.6)
[2019-07-28] MEDS ORDERED: Cefepime 2 GM VIAL ONE (06:21)
--- NOTE | 2019-07-28 07:04 | RAD ---
SINGLE VIEW CHEST: Date: 07/28/2019 COMPARISON: 04/12/18. HISTORY: Dyspnea for a couple of weeks. FINDINGS: Single view of the chest shows an enlarged cardiomediastinal silhouette. The patient is status post c ardiac valve repair. The pacemaker is unchanged in position. Increased interstitial lung markings are present. There are questionable superimposed air space opacities in the right lung, which may repres ent edema or infiltrates. IMPRESSION: Right-sided pulmonary edema versus infiltrates. POS: [facility]
[2019-07-28 08:49] LABS: Troponin I 0.182 ng/mL (< 0.028)
[2019-07-28] MEDS ORDERED: Dextrose 5% in Water 1,000 ML IV PRN (11:06)
[2019-07-28] MEDS ORDERED: Guaifenesin DM 100-10/5 ML UDCUP PO PRN (11:06)
[2019-07-28] MEDS ORDERED: Dextrose 50% Abboject 50 ML SYRINGE SLOW IVP PRN (11:06)
[2019-07-28] MEDS ORDERED: Senokot S 8.6-50 MG TAB PO PRN (11:06)
[2019-07-28] MEDS ORDERED: HumaLOG 300 UNITS/3 ML VIAL SC PRN (11:06)
[2019-07-28] MEDS ORDERED: Bisacodyl 10 MG SUPP PR PRN (11:06)
--- NOTE | 2019-07-28 13:41 | HP ---
REASON FOR ADMISSION: 1. CHF exacerbation. 2. Possible pneumonia. HISTORY OF PRESENT ILLNESS: The patient states she developed shortness of breath from last 2 days now. This has been slowly getting worse. She has had dry coughing spells, but no expectoration. No fever. She also developed retrosternal pain due to coughing spells. One of her aides called EMS and the patient was brought here from [facility]. Currently, the patient states she is feeling better. PAST MEDICAL AND SURGICAL HISTORY: Hypotension, history of CHF, dyslipidemia, hypothyroidism, diabetes mellitus type 2, history of cardiomyopathy, chronic kidney disease stage 3, chronic anemia, chronic atrial fibrillation, history of aortic stenosis, cholecystectomy, breast surgery, appendectomy, tonsillectomy, prior cardiac cath, pacemaker with AICD, and depression. CURRENT MEDICATIONS: The patient is on; 1. Allopurinol 100 mg twice daily. 2. Atorvastatin 20 mg p.o. nightly. 3. Lumigan eye drops. 4. Calcitriol 0.25 mcg p.o. twice daily. 5. Coreg 6.25 mg twice daily. 6. Lexapro 10 mg daily. 7. Ferrous sulfate 325 mg p.o. daily. 8. Glucotrol extended release twice daily. 9. Levemir 34 units subcu daily. 10. Levothyroxine 112 mcg daily. 11. Demadex 20 mg daily. 12. Trazodone 50 mg p.o. nightly. 13. Coumadin 2.5 mg daily. 14. Digoxin 0.125 mg p.o. daily. 15. Potassium chloride 10 mEq p.o. daily. ALLERGIES: NO KNOWN DRUG ALLERGIES. PERSONAL HISTORY: Does not abuse alcohol or drugs. No history of smoking. The patient lives at [facility] and states she ambulates for short distances using a cane. FAMILY HISTORY: Mother at the age of 63. She of complications from flu. Father had stroke and in his 60s. CODE STATUS: Full. Power of commercial litigation attorney is her son, Mr. Lemus. REVIEW OF SYSTEMS: CONSTITUTIONAL: Negative for weight loss or gain, ability to conduct usual activities. SKIN: Negative for rash, itching. EYES: Negative for double vision, pain. ENT/MOUTH: Negative for nose bleeding, neck stiffness, pain, tenderness. CARDIOVASCULAR: Negative for palpitations, dyspnea on exertion, orthopnea. RESPIRATORY: Negative for shortness of breath, wheezing, cough, hemoptysis, fever or night sweats. GASTROINTESTINAL: Negative for poor appetite, abdominal pain, heartburn, nausea, vomiting, constipation, or diarrhea. GENITOURINARY: Negative for urgency, frequency, dysuria, nocturia. MUSCULOSKELETAL: Negative for pain, swelling. NEUROLOGIC/PSYCHIATRIC: Negative for anxiety, depression. ALLERGY/IMMUNOLOGIC: Negative for skin rash, bleeding tendency. PHYSICAL EXAMINATION: GENERAL: The patient is an 78-year-old female, who is currently not in any acute distress. VITAL SIGNS: Blood pressure 178/116, pulse 84 per minute, respiratory rate 20 per minute, temperature 97.8 degrees Fahrenheit, and saturating 86% on room air and 95% on 2 L nasal cannula. NECK: Supple. There is elevated JVD. HEENT: Eyes; extraocular muscles intact. Pupils reacting to light. Oral cavity, mucous membranes are dry. No exudates or congestion. CARDIOVASCULAR SYSTEM: S1 and S2 heard. Regular rhythm. RESPIRATORY SYSTEM: Air entry 1+ bilateral. Scattered rales plus bilateral. ABDOMEN: Soft. Bowel sounds heard. No tenderness, rigidity, or guarding. EXTREMITIES: There is 1+ peripheral edema. No calf tenderness. VASCULAR SYSTEM: Peripheral pulses 1+ bilateral. No ischemic ulcerations or gangrene. CENTRAL NERVOUS SYSTEM: No gross focal deficits noted. The patient is alert and oriented well. PSYCHIATRIC SYSTEM: The patient's mood is euthymic. No hallucinations or delusions. LABORATORY DATA: BUN of 15, creatinine 1.4, and serum glucose 178. Troponin I of 0.14. CK-MB 3.4. BNP 944. White count of 12, H and H of 15 and 51, and platelet count 185 with 84% neutrophils. DIAGNOSTIC DATA: Chest x-ray done shows pulmonary vascular congestion with questionable infiltrate in the right side. EKG done shows paced rhythm at 91 beats per minute, QRS duration is 116 milliseconds, corrected QT is 457 milliseconds. CLINICAL IMPRESSION AND PLAN: The patient will be admitted to telemetry for acute on chronic congestive heart failure exacerbation. We will consult Dr. Vidales her pacu nurse during her stay here. The patient will be on Lasix 40 mg IV at 6 a.m. and 2 p.m. along with aspirin, Lipitor, low-dose carvedilol, and low-dose lisinopril. We will also continue her Coumadin as before. We will also place her on Levaquin 500 mg IV daily for suspected pneumonia, albuterol nebulizer q.8 hourly p.r.n., levothyroxine as before, trazodone, latanoprost, ferrous sulfate, Lexapro, and digoxin as before. CT chest without contrast has been ordered and we will follow up on that. We will also obtain a respiratory viral pathogen PCR. If needed, we will consult Pulmonology. For now, the patient will be gently diuresed and we will follow up on the electrolytes. Code status is full. This was discussed with the patient. Job ID: [id number]
[2019-07-28] MEDS: Furosemide 40 MG/4 ML VIAL SLOW IVP SCH (13:45)
[2019-07-28] MEDS: Acetaminophen 325 MG TAB PO PRN (13:48)
--- NOTE | 2019-07-28 13:52 | CT ---
CT OF CHEST PERFORMED WITHOUT CONTRAST ENHANCEMENT: 07/28/19 HISTORY: Dyspnea. COMPARISON: Chest x-ray done today and a 03/24/19 chest x-ray. There is very minimal amount of pleural fluid on the left. On the right side, there is some slightly more loculated appearing pleural effusion extending along the upper portion of the major fissure. The re are patchy parenchymal lung changes seen within the right middle and both lower lobes. These pantoja es are more suggestive of a pneumonic type change. There is a parenchymal density in the left upper l obe. Overall process is more suggestive of pneumonia. Slightly nodular parenchymal changes in the rig ht lung apex is probably just on the basis of some more nodular infiltrate. Small lymph nodes in the mediastinum are all probably reactive. The heart size is markedly enlarged. Visualized liver parenchyma is normal. Right and left adrenal glands are normal. IMPRESSION: Parenchymal lung changes most suggestive of an infiltrative changes in both lung bases and in the rig ht middle lobe. Lesser changes in both upper lobes. Loculated appearing right sided effusion also not ed. POS: [facility]
[2019-07-28 16:15] LABS: Troponin I 0.171 ng/mL (< 0.028)
[2019-07-28] MEDS: HumaLOG 300 UNITS/3 ML VIAL SC PRN (17:14)
[2019-07-28] MEDS: Carvedilol 3.125 MG TAB PO SCH (21:34)
[2019-07-28] MEDS: Calcitriol 0.25 MCG CAP PO SCH (21:34)
[2019-07-28] MEDS: Latanoprost 0.005% Ophth Soln 2.5 ml Bottle EA EYE SCH (21:34)
[2019-07-28] MEDS: Atorvastatin Calcium 20 MG TAB PO SCH (21:34)
[2019-07-28] MEDS: traZODone HCl 50 MG TAB PO SCH (21:34)
[2019-07-28] MEDS: Allopurinol 100 MG TAB PO SCH (21:34)
--- NOTE | 2019-07-28 23:20 | CON ---
DATE OF CONSULTATION: PRIMARY CARE DOCTOR: Dr. Suzanne Doran. PRIMARY CORPORATE TREASURY ANALYST: Dr. Emmanuel Vidales. PRIMARY ANGER CONTROL COUNSELOR: Dr. Chun. PRIMARY AIRPORT ATTENDANT: . REASON FOR CARDIOLOGY CONSULT: Congestive heart failure exacerbation. HISTORY OF PRESENT ILLNESS: Ms. Collazo is a very present 78-year-old female with significant history of chronic systolic heart failure, severe aortic valve stenosis with status post TAVR in 2017, diabetes, hypertension, hyperlipidemia, chronic kidney disease, which is managed by Dr. Chun. The patient was believed to be doing well until over the night she started having shortness of breath, which caused an insomnia. Since she is living in [facility], the [facility] [place], she called for assistance. The staff at the [facility] called the ambulance. The patient was transferred to emergency department for further evaluation and treatment. She also noticed that she has edema all day on the lower extremities lately. She used to have intermittent bilateral lower extremity edema, especially toward the end of the day, but this time it has happened all day. She also complained about intermittent very mild sharp pain to the epigastric area for less than 1 minute. She cannot recall when was the last time she had that episode, but she can remember she did not have any other cardiac complaints during the episode. At this time, the patient denied any chest pain, heaviness, tightness, dizziness, lightheadedness, or numbness in the left arm or any other cardiac complaints during the episode last night. The patient had status post TAVR at [facility] in June 2016. The patient had chronic systolic heart failure with defibrillator in. She states nobody has checked the patient's defibrillator lately. The patient had a cardiac catheterization in May 2013 for decrease of EF, which showed normal coronary arteries with EF 15% to 20%, and the patient had echocardiogram done in March 2018 with ejection fraction 25% to 30%, , severely dilated left atrium, likely enlarged right atrium, moderate mitral valve regurgitation, normal function of bioprosthetic valve, severe tricuspid regurgitation, and mild to moderate pulmonary valve regurgitation. MEDICAL HISTORY: Chronic atrial fibrillation, hypertension, severe aortic valve stenosis status post TAVR, mitral valve regurgitation, tricuspid regurgitation, cardiomyopathy, chronic systolic heart failure, diabetes, chronic kidney disease, hyperlipidemia, and chronic anemia. SURGICAL HISTORY: Status post TAVR in June 2016 at [facility] in [place], [place], AICD placement, appendectomy, tonsillectomy, and cholecystectomy. FAMILY HISTORY: The patient was adopted, so the patient does not have any good family history. SOCIAL HISTORY: She is living in a custodial community at this moment. She does not cook, food is provided by the [facility]. She denies EtOH, tobacco, or illicit drug abuse. She tries to walk 1000 steps a day. She does not watch salt intake or fluid intake. According to the patient, she drinks at least 78 ounces of fluids a day. She drinks at least 1 cup of coffee in the morning. ALLERGIES: NO KNOWN DRUG ALLERGY. HOME MEDICATIONS: The patient has a thyroid problem. 1. Levothyroxine 112 mcg once a day. 2. Atorvastatin 20 mg once a day. 3. Iron supplement 325 mg once a day. 4. Digoxin 0.125 mg once a day. 5. Potassium chloride 10 mEq once a day. 6. Carvedilol 6.25 mg twice a day. 7. Levemir 34 units every day. 8. Lexapro 10 mg once a day. 9. Lumigan one drop each eye at night. 10. Allopurinol 100 mg twice a day. 11. Glipizide 15 mg twice a day. 12. Demodex 20 mg 1 tablet once a day. 13. Calcitriol 0.25 mcg one tablet twice a day. 14. Trazodone 50 mg at night. 15. Coumadin 2.5 mg once a day. REVIEW OF SYSTEMS: 12-point review of systems is negative unless otherwise mentioned in HPI. She uses a cane as needed when she feels weak or having shortness of breath, but usually, she does not use the cane. She denied hematuria or hematochezia. PHYSICAL EXAMINATION: VITAL SIGNS: Blood pressure 121/59, temperature 97.5, pulse is 88, V pacing and chronic atrial fibrillation, respiratory rate 18, and O2 saturation 93% on 2 L nasal cannula. GENERAL: The patient is alert and oriented x4, not in acute distress. HEENT: Head, normocephalic and atraumatic. Eyes; extraocular muscle movement intact. ENT, mouth, nose; oral and nasal mucosa moist without lesion. NECK: Supple. Normal range of motion. No JVD. RESPIRATORY: Diminished at the bases. CARDIOVASCULAR: Irregularly irregular. The patient is V pacing at this moment on the telemetry. 2+ pulses in bilateral upper and lower extremities and 1 to 2+ pitting edema in the lower extremities, more in the left side than the right side. The patient has a murmur in the right and bilateral mediastinal border and left lateral chest. Carotid pulses are present without bruit or thrill. ABDOMEN: Soft, nontender. No mass to palpitate. Bowel sounds are present. SKIN: Warm and dry. No lesion, rash, or erythema noted except the scratch jack in the lower extremities. The patient states she scratched a couple days ago. MUSCULOSKELETAL: The patient able to turn by herself. The patient denied claudication. NEUROLOGIC: The patient is alert and oriented x4. Nonfocal. PSYCHIATRIC: The patient's mood is appropriate. LABORATORY DATA: WBC 12.1, hemoglobin 15.6, hematocrit 51.6, platelet 185. Sodium 139, potassium 3.5, BUN 15, creatinine 1.48, glucose 178. Lactic acid 2.0. AST 45, ALT is 38, alkaline phosphatase 101, CK-MB 3.4, troponin 0.149 and 0.182. BNP 944.9. The patient's TSH is 0.5752, free T4 of 1.11. ASSESSMENT AND PLAN: 1. Acute on chronic systolic heart failure. The patient is going to have another echocardiogram today. The patient had status post AICD in the past. 2. The patient states that nobody has been checked the patient's AICD. I would like to go ahead to order AICD interrogation report as well. She states that she can breathe better after the patient received IV Lasix. She is on Lasix 40 mg IV push twice a day. She is on carvedilol 3.125 mg twice a day and lisinopril 2.5 mg once a day. 3. Chronic atrial fibrillation. The patient's heart rate is stable at this moment with carvedilol 3.125 mg once a day, digoxin 0.125 mg once a day. She is on Coumadin 2.5 mg once a day. I know it is going to be evaluated by the primary care doctor. 4. History of the TAVR placement in June 2016. The patient is going to have another echocardiogram during this hospitalization, but at this moment, the patient is asymptomatic. 5. Chronic kidney disease. The patient's creatinine level is stable at this moment. We would like to continue to monitor. 6. Diabetes type 2, which is managed by primary care doctor. 7. Hyperlipidemia. The patient is on atorvastatin 20 mg once a day. LDL in March last year, it was 41. 8. Chronic anemia. The patient is iron supplemented. The patient's hemoglobin level is stable at this moment. Thank you very much for Cardiology Service to participate in care of this patient. We will follow along the patient's care team and make further recommendations as appropriate. From tomorrow, Dr. Vidales is going to follow this patient. Job ID: [id number]
[2019-07-29 05:24] LABS: #Eosinphils 0.3 thou/uL (0.0-0.7); #Lymphocytes 1.4 thou/uL (1.20-3.40); #Monocytes 0.6 thou/uL (0.11-0.59); #Neutrophils 7.8 thou/uL (1.40-6.50); %Basophils 0.2 % (0.0-1.0); %Eosinophils 2.6 % (0.0-10.0); %Lymphocytes 13.9 % (21.0-51.0); %Neutrophils 77.3 % (42.0-75.0); Hemoglobin 13.2 g/dL (12.0-16.0); INR-International Normal Ratio 2.1; Mean Corpuscular HGB CONC 32.1 g/dL (32.0-36.0); Mean Corpuscular Hemoglobin 31.8 pg (27.0-31.0); Mean Corpuscular Volume 99.2 fL (78.0-98.0); Mean Platelet Volume 8.4 fL (7.4-10.4); Platelet Count 139 thou/uL (130-400); Prothrombin Time 23.1 SEC (12.0-14.7); RBC Distribution Width 13.8 % (11.5-14.5); Red Blood Cell (RBC) Count 4.15 mill/uL (4.20-5.40); White Blood Cell (WBC) Count 10.1 thou/uL (4.8-10.8)
[2019-07-29 05:33] LABS: Anion Gap 11 mmol/L (10-20); BUN (Urea Nitrogen) 15 mg/dL (9.8-20.1); Calc. Creatinine Clearance 37 mL/min (70-130); Calcium 9.3 mg/dL (7.8-10.44); Carbon Dioxide 32 mmol/L (23-31); Chloride 100 mmol/L (98-107); Estimated GFR-MDRD 37; Glucose 87 mg/dL (83-110); Potassium 3.6 mmol/L (3.5-5.1); Sodium 139 mmol/L (136-145)
[2019-07-29] MEDS: Levothyroxine Sodium 112 MCG TAB PO SCH (05:52)
[2019-07-29] MEDS: Furosemide 40 MG/4 ML VIAL SLOW IVP SCH ×2 (05:54→14:25)
[2019-07-29] MEDS ORDERED: INSULIN DETEMIR 34 UNIT SQ SCH (09:00)
[2019-07-29] MEDS: Allopurinol 100 MG TAB PO SCH ×2 (09:22→21:55)
[2019-07-29] MEDS: Lisinopril 2.5 MG TAB PO SCH (09:22)
[2019-07-29] MEDS: Calcitriol 0.25 MCG CAP PO SCH ×2 (09:22→21:55)
[2019-07-29] MEDS: Carvedilol 3.125 MG TAB PO SCH ×2 (09:23→21:55)
[2019-07-29] MEDS: Escitalopram Oxalate 10 mg Tablet PO SCH (09:23)
[2019-07-29] MEDS: Aspirin Chewable 81 MG TAB PO SCH (09:23)
[2019-07-29] MEDS: Ferrous Sulfate 325 MG TAB PO SCH (09:23)
[2019-07-29] MEDS: Digoxin 0.125 MG TAB PO SCH (09:23)
[2019-07-29] MEDS: Famotidine 20 MG TAB PO SCH (09:23)
[2019-07-29] MEDS: Insulin Glargine 34 UNITS in Pre-Filled Syringe 1 EACH SC SCH (12:51)
--- NOTE | 2019-07-29 13:03 | PDOC.HOSPP ---
- Subjective Encounter Date: 07/29/19 Encounter Time: 09:15 Subjective: breathing better, no chest pain or palp feels better is ambulating in room and in hallway - Objective Vital Signs & Weight: Vital Signs (12 hours) Temp Pulse Pulse Pulse Resp BP BP 07/29/19 11:38 98.4 F 75 15 07/29/19 09:34 74 89 130/81 130/64 07/29/19 09:23 71 07/29/19 09:22 71 07/29/19 07:36 98 F 71 15 07/29/19 04:09 98.1 F 75 22 H BP Pulse Ox Pulse Ox Pulse Ox 07/29/19 11:38 134/85 98 07/29/19 09:34 87 L 91 L 07/29/19 09:23 07/29/19 09:22 07/29/19 07:36 143/66 H 98 07/29/19 04:09 116/57 L Weight Weight 157 lb 9.6 oz Result Diagrams: 07/29/19 04:44 07/29/19 04:44 Additional Labs: Accuchecks 07/29/19 07/28/19 07/28/19 10:49 20:42 16:30 POC Glucose 110 100 259 H Hospitalist ROS - Medication Medications: Active Medications Generic Name Dose Route Start Last Admin Trade Name Freq PRN Reason Stop Dose Admin Acetaminophen 650 mg 07/28/19 11:06 07/28/19 13:48 Tylenol PO 650 mg Q4H PRN Administration Headache/Fever/Mild Pain (1-3) Allopurinol 100 mg 07/28/19 21:00 07/29/19 09:22 Zyloprim PO 100 mg BID TYREL Administration Aspirin 81 mg 07/29/19 09:00 07/29/19 09:23 Aspirin Chewable PO 81 mg DAILY TYREL Administration Atorvastatin Calcium 20 mg 07/28/19 21:00 07/28/19 21:34 Lipitor PO 20 mg HS TYREL Administration Calcitriol 0.25 mcg 07/28/19 21:00 07/29/19 09:22 Rocaltrol PO 0.25 mcg BID TYREL Administration Carvedilol 3.125 mg 07/28/19 21:00 07/29/19 09:23 Coreg PO 3.125 mg BID TYREL Administration Digoxin 0.125 mg 07/29/19 09:00 07/29/19 09:23 Lanoxin PO 0.125 mg DAILY TYREL Administration Escitalopram Oxalate 10 mg 07/29/19 09:00 07/29/19 09:23 Lexapro PO 10 mg DAILY TYREL Administration Famotidine 20 mg 07/29/19 09:00 07/29/19 09:23 Pepcid PO 20 mg DAILY TYREL Administration Ferrous Sulfate 325 mg 07/29/19 09:00 07/29/19 09:23 Feosol PO 325 mg DAILY TYREL Administration Furosemide 40 mg 07/28/19 14:00 07/29/19 05:54 Lasix SLOW IVP 40 mg 0600,1400 TYREL Administration Levofloxacin 500 mg/ Device 100 mls @ 100 mls/hr 07/28/19 12:00 07/29/19 12: 05 IVPB 100 mls Q24HR TYREL Administration Insulin Glargine 34 units/ 0.34 mls @ 0 mls/hr 07/29/19 09:00 07/29/19 12:51 Miscellaneous Medication SC 0.34 mls QAM TYREL Administration Insulin Human Lispro 0 units 07/28/19 11:06 07/28/19 17:14 Humalog SC 6 unit .MODERATE SLIDING SC PRN Administration Moderate Correctional Scale Latanoprost 1 drop 07/28/19 21:00 07/28/19 21:34 Xalatan 0.005% Ophth Soln EA EYE 1 drop HS TYREL Administration Levothyroxine Sodium 112 mcg 07/29/19 06:00 07/29/19 05:52 Synthroid PO 112 mcg 0600 TYREL Administration Lisinopril 2.5 mg 07/29/19 09:00 07/29/19 09:22 Zestril PO 2.5 mg DAILY TYREL Administration Trazodone HCl 50 mg 07/28/19 21:00 07/28/19 21:34 Desyrel PO 50 mg HS TYREL Administration - Exam General Appearance: awake alert Eye: PERRL, anicteric sclera ENT: no oropharyngeal lesions, moist mucosa Neck: supple, no JVD Heart: RRR, no gallops, murmur present Respiratory: no wheezes, no rales Gastrointestinal: soft, non-tender, non-distended, normal bowel sounds Extremities: no cyanosis, no edema Neurological: cranial nerve grossly intact, no focal deficits Psychiatric: A&O x 3 Hosp A/P (1) Acute exacerbation of CHF (congestive heart failure) Code(s): I50.9 - HEART FAILURE, UNSPECIFIED Status: Acute Qualifiers: Heart failure type: diastolic Qualified Code(s): I50.33 - Acute on chronic diastolic (congestive) heart failure (2) Cardiomyopathy Code(s): I42.9 - CARDIOMYOPATHY, UNSPECIFIED Status: Acute (3) Chronic kidney disease stage 3 Code(s): N18.3 - CHRONIC KIDNEY DISEASE, STAGE 3 (MODERATE) Status: Acute (4) Diabetes mellitus type 2 Code(s): E11.9 - TYPE 2 DIABETES MELLITUS WITHOUT COMPLICATIONS Status: Acute (5) Dyslipidemia Code(s): E78.5 - HYPERLIPIDEMIA, UNSPECIFIED Status: Acute - Plan hemostable gentle iv diuresis recovering well continue asp, lipitor, coreg, lisinopril, digoxin, lantus and coumadin dc plan in 24-36hrs
[2019-07-29 16:51] LABS: Hemoglobin 13.8 g/dL (12.0-16.0); Platelet Count 142 thou/uL (130-400)
[2019-07-29] MEDS: Warfarin Sodium 2.5 MG TAB PO SCH ×2 (16:52)
[2019-07-29] MEDS: HumaLOG 300 UNITS/3 ML VIAL SC PRN (16:53)
[2019-07-29] MEDS: Atorvastatin Calcium 20 MG TAB PO SCH (21:55)
[2019-07-29] MEDS: traZODone HCl 50 MG TAB PO SCH (21:55)
[2019-07-29] MEDS: Latanoprost 0.005% Ophth Soln 2.5 ml Bottle EA EYE SCH (21:57)
[2019-07-30 05:17] LABS: INR-International Normal Ratio 1.6; Prothrombin Time 18.8 SEC (12.0-14.7)
[2019-07-30 05:38] LABS: Anion Gap 15 mmol/L (10-20); BUN (Urea Nitrogen) 22 mg/dL (9.8-20.1); Calc. Creatinine Clearance 35 mL/min (70-130); Calcium 9.8 mg/dL (7.8-10.44); Carbon Dioxide 27 mmol/L (23-31); Chloride 100 mmol/L (98-107); Estimated GFR-MDRD 34; Glucose 84 mg/dL (83-110); Potassium 3.5 mmol/L (3.5-5.1); Sodium 138 mmol/L (136-145)
[2019-07-30] MEDS: Levothyroxine Sodium 112 MCG TAB PO SCH (06:37)
[2019-07-30] MEDS: Furosemide 40 MG/4 ML VIAL SLOW IVP SCH ×2 (06:37→13:51)
[2019-07-30] MEDS: Digoxin 0.125 MG TAB PO SCH (10:05)
[2019-07-30] MEDS: Famotidine 20 MG TAB PO SCH (10:05)
[2019-07-30] MEDS: Carvedilol 3.125 MG TAB PO SCH (10:05)
[2019-07-30] MEDS: Allopurinol 100 MG TAB PO SCH ×2 (10:05→21:03)
[2019-07-30] MEDS: Aspirin Chewable 81 MG TAB PO SCH (10:05)
[2019-07-30] MEDS: Calcitriol 0.25 MCG CAP PO SCH ×2 (10:05→21:03)
[2019-07-30] MEDS: Lisinopril 2.5 MG TAB PO SCH (10:05)
[2019-07-30] MEDS: Ferrous Sulfate 325 MG TAB PO SCH (10:05)
[2019-07-30] MEDS: Escitalopram Oxalate 10 mg Tablet PO SCH (10:06)
[2019-07-30] MEDS: Insulin Glargine 34 UNITS in Pre-Filled Syringe 1 EACH SC SCH (10:06)
--- NOTE | 2019-07-30 12:27 | PDOC.HOSPP ---
- Subjective Encounter Date: 07/30/19 Encounter Time: 10:15 Subjective: sob is better, no chest pain is ambulating in hallway - Objective Vital Signs & Weight: Vital Signs (12 hours) Temp Pulse Pulse Pulse Resp BP BP 07/30/19 10:05 77 07/30/19 09:11 78 78 134/72 120/58 L 07/30/19 07:09 97.7 F 77 20 07/30/19 04:00 98.4 F 80 20 BP Pulse Ox Pulse Ox Pulse Ox 07/30/19 10:05 07/30/19 09:11 88 L 92 L 07/30/19 07:09 137/79 98 07/30/19 04:00 135/79 98 Weight Weight 150 lb 11.2 oz Result Diagrams: 07/29/19 16:41 07/30/19 04:41 Additional Labs: Accuchecks 07/30/19 07/29/19 07/29/19 10:21 20:38 16:39 POC Glucose 98 148 H 160 H Hospitalist ROS - Medication Medications: Active Medications Generic Name Dose Route Start Last Admin Trade Name Freq PRN Reason Stop Dose Admin Acetaminophen 650 mg 07/28/19 11:06 07/28/19 13:48 Tylenol PO 650 mg Q4H PRN Administration Headache/Fever/Mild Pain (1-3) Allopurinol 100 mg 07/28/19 21:00 07/30/19 10:05 Zyloprim PO 100 mg BID TYREL Administration Aspirin 81 mg 07/29/19 09:00 07/30/19 10:05 Aspirin Chewable PO 81 mg DAILY TYREL Administration Atorvastatin Calcium 20 mg 07/28/19 21:00 07/29/19 21:55 Lipitor PO 20 mg HS TYREL Administration Calcitriol 0.25 mcg 07/28/19 21:00 07/30/19 10:05 Rocaltrol PO 0.25 mcg BID TYREL Administration Carvedilol 3.125 mg 07/28/19 21:00 07/30/19 10:05 Coreg PO 3.125 mg BID TYREL Administration Digoxin 0.125 mg 07/29/19 09:00 07/30/19 10:05 Lanoxin PO 0.125 mg DAILY TYREL Administration Escitalopram Oxalate 10 mg 07/29/19 09:00 07/30/19 10:06 Lexapro PO 10 mg DAILY TYREL Administration Famotidine 20 mg 07/29/19 09:00 07/30/19 10:05 Pepcid PO 20 mg DAILY TYREL Administration Ferrous Sulfate 325 mg 07/29/19 09:00 07/30/19 10:05 Feosol PO 325 mg DAILY TYREL Administration Furosemide 40 mg 07/28/19 14:00 07/30/19 06:37 Lasix SLOW IVP 40 mg 0600,1400 TYREL Administration Levofloxacin 500 mg/ Device 100 mls @ 100 mls/hr 07/28/19 12:00 07/29/19 12: 05 IVPB 100 mls Q24HR TYREL Administration Insulin Glargine 34 units/ 0.34 mls @ 0 mls/hr 07/29/19 09:00 07/30/19 10:06 Miscellaneous Medication SC 0.34 mls QAM TYREL Administration Insulin Human Lispro 0 units 07/28/19 11:06 07/29/19 16:53 Humalog SC 2 unit .MODERATE SLIDING SC PRN Administration Moderate Correctional Scale Latanoprost 1 drop 07/28/19 21:00 07/29/19 21:57 Xalatan 0.005% Ophth Soln EA EYE 1 drop HS TYREL Administration Levothyroxine Sodium 112 mcg 07/29/19 06:00 07/30/19 06:37 Synthroid PO 112 mcg 0600 TYREL Administration Lisinopril 2.5 mg 07/29/19 09:00 07/30/19 10:05 Zestril PO 2.5 mg DAILY TYREL Administration Trazodone HCl 50 mg 07/28/19 21:00 07/29/19 21:55 Desyrel PO 50 mg HS TYREL Administration Warfarin Sodium 2.5 mg 07/28/19 17:00 07/29/19 16:52 Coumadin PO 2.5 mg 1700 TYREL Administration - Exam General Appearance: awake alert Eye: PERRL, anicteric sclera ENT: no oropharyngeal lesions, moist mucosa Neck: supple, no JVD Heart: RRR, no murmur Respiratory: no wheezes, no rales Gastrointestinal: soft, non-tender, non-distended, normal bowel sounds Extremities: no cyanosis, 1+ LE edema Neurological: cranial nerve grossly intact, no focal deficits Psychiatric: normal affect, A&O x 3 Hosp A/P (1) Acute exacerbation of CHF (congestive heart failure) Code(s): I50.9 - HEART FAILURE, UNSPECIFIED Status: Acute Qualifiers: Heart failure type: diastolic Qualified Code(s): I50.33 - Acute on chronic diastolic (congestive) heart failure (2) Cardiomyopathy Code(s): I42.9 - CARDIOMYOPATHY, UNSPECIFIED Status: Chronic (3) Chronic kidney disease stage 3 Code(s): N18.3 - CHRONIC KIDNEY DISEASE, STAGE 3 (MODERATE) Status: Chronic (4) Diabetes mellitus type 2 Code(s): E11.9 - TYPE 2 DIABETES MELLITUS WITHOUT COMPLICATIONS Status: Chronic (5) Dyslipidemia Code(s): E78.5 - HYPERLIPIDEMIA, UNSPECIFIED Status: Chronic - Plan hemostable gentle iv diuresis, is almost euvolemic, switch to po lasix in am. recovering well continue asp, lipitor, coreg, lisinopril, digoxin, lantus and coumadin dc plan in am
[2019-07-30] MEDS: Warfarin Sodium 2.5 MG TAB PO SCH (16:54)
[2019-07-30] MEDS: Atorvastatin Calcium 20 MG TAB PO SCH (21:02)
[2019-07-30] MEDS: Latanoprost 0.005% Ophth Soln 2.5 ml Bottle EA EYE SCH (21:03)
[2019-07-30] MEDS: traZODone HCl 50 MG TAB PO SCH (21:03)
[2019-07-31 04:54] LABS: INR-International Normal Ratio 1.5; Prothrombin Time 17.7 SEC (12.0-14.7)
[2019-07-31 05:11] LABS: Anion Gap 11 mmol/L (10-20); BUN (Urea Nitrogen) 21 mg/dL (9.8-20.1); Calc. Creatinine Clearance 66 mL/min (70-130); Calcium 10.4 mg/dL (7.8-10.44); Carbon Dioxide 34 mmol/L (23-31); Chloride 97 mmol/L (98-107); Estimated GFR-MDRD 31; Glucose 79 mg/dL (83-110); Sodium 139 mmol/L (136-145)
[2019-07-31] MEDS: Levothyroxine Sodium 112 MCG TAB PO SCH (06:01)
[2019-07-31] MEDS: Furosemide 40 MG/4 ML VIAL SLOW IVP SCH ×2 (06:03→14:25)
[2019-07-31] MEDS ORDERED: Warfarin Sodium 5 MG TAB PO SCH (07:45)
[2019-07-31] MEDS: Digoxin 0.125 MG TAB PO SCH (09:13)
[2019-07-31] MEDS: Escitalopram Oxalate 10 mg Tablet PO SCH (09:13)
[2019-07-31] MEDS: Allopurinol 100 MG TAB PO SCH ×2 (09:14→21:04)
[2019-07-31] MEDS: Ferrous Sulfate 325 MG TAB PO SCH (09:14)
[2019-07-31] MEDS: Calcitriol 0.25 MCG CAP PO SCH ×2 (09:14→21:04)
[2019-07-31] MEDS: Lisinopril 2.5 MG TAB PO SCH (09:14)
[2019-07-31] MEDS: Famotidine 20 MG TAB PO SCH (09:14)
[2019-07-31] MEDS: Aspirin Chewable 81 MG TAB PO SCH (09:14)
[2019-07-31] MEDS: Carvedilol 6.25 MG TAB PO SCH ×2 (09:14→17:44)
[2019-07-31] MEDS: Insulin Glargine 34 UNITS in Pre-Filled Syringe 1 EACH SC SCH (09:15)
--- NOTE | 2019-07-31 13:59 | PQF ---
CLINICAL DOCUMENTATION IMPROVEMENT CLARIFICATION FORM: ICD-10 Updated PLEASE DO AN ADDENDUM TO THE PROGRESS NOTE WITH ANY DOCUMENTATION UPDATES OR ADDITIONS AND CARRY THROUGH TO DC SUMMARY. THANK YOU. DATE: 07/31/2019; 08/04/2019 ATTN: Dr. Borges/ Dr. Quevedo Please exercise your independent, professional judgment in responding to the clarification form. Clinical indicators are provided on the bottom of this form for your review Please check appropriate box(s): [ X ] Acute Respiratory Failure: [ X ] with Hypoxia [ ] with Hypercapnia [ ] Acute On Chronic Respiratory Failure: [ ] with Hypoxia [ ] with Hypercapnia [ ] Acute Respiratory Failure due to: (etiology) [ ] Chronic Respiratory Failure only [ ] with Hypoxia [ ] with Hypercapnia [ ] Respiratory Insufficiency [ ] Other diagnosis [ ] Unable to determine In addition, please specify: Present on Admission (POA): [ X ] Yes [ ] No [ ] Unable to determine For continuity of documentation, please document condition throughout progress notes and discharge summary. Thank You. CLINICAL INDICATORS - SIGNS / SYMPTOMS / LABS / RESULTS AND LOCATION IN ER Record: 07/28: VS: Resp. 22, O2 sat 86 on (Room Air) ER MD: Pt with history of congestive heart failure presents with orthopnea and dyspnea with lower extremity edema. H&P 07/28: PE: VS: resp rate 20 per minute, temp. 97.8 degrees F, and saturation 86% on room air and 95% on 2 L nasal cannula Chest x-ray done shows pulmonary vascular congestion with questionable infiltrate in the right side. The pt will be admitted to telemetry for acute on chronic congestive heart failure exacerbation. 07/28: (Arata) VS: O2 saturation 93% on 2 L nasal cannula. RISKS: H&P 07/28: Hx hypotension, hx of CHF, DM 2, hx of cardiomyopathy, CKD 3. Admitted to telemetry for acute on chronic congestive heart failure exacerbation. TREATMENT: MAR: Order 07/28: Lasix 40mg slow IVP 0600 1400 Order 07/28; Resp: O2 to keep sats 90% prn Thank you, Alexsandra (This form is maintained as a part of the permanent medical record) 2015 [employer]. All Rights Reserved Alexsandra Calix RN, BSN [email or web address] Office: [phone] [facility]
--- NOTE | 2019-07-31 15:36 | PDOC.HOSPP ---
- Subjective Subjective: Seen and examined. Patient states that she is breathing much better than when she arrived. Less lower extremity edema. Denies pain. Patient states that nobody is managing her Coumadin and she does not get blood test regularly. Patient lives in assisted living facility, though she is on the independent side. - Objective Vital Signs & Weight: Vital Signs (12 hours) Temp Pulse Pulse Pulse Resp BP BP 07/31/19 10:41 65 70 70 16 120/73 119/63 07/31/19 09:14 75 07/31/19 09:13 75 07/31/19 07:46 97.5 F L 75 18 07/31/19 04:15 96.3 F L 73 17 BP BP Pulse Ox Pulse Ox Pulse Ox 07/31/19 10:41 119/63 92 L 95 92 L 07/31/19 09:14 07/31/19 09:13 07/31/19 07:46 126/69 94 L 07/31/19 04:15 131/71 97 Weight Weight 331 lb 2.149 oz I&O: 07/30/19 07/31/19 08/01/19 06:59 06:59 06:59 Intake Total 220 Output Total 450 Balance -230 Result Diagrams: 07/29/19 16:41 07/31/19 04:26 Additional Labs: Accuchecks 07/31/19 07/30/19 07/30/19 10:45 21:11 16:32 POC Glucose 124 H 112 H 134 H Radiology Reviewed by me: Yes Hospitalist ROS - Review of Systems All other systems reviewed; all pertinent +/- noted in HPI/Subj - Medication Medications: Active Medications Generic Name Dose Route Start Last Admin Trade Name Freq PRN Reason Stop Dose Admin Acetaminophen 650 mg 07/28/19 11:06 07/28/19 13:48 Tylenol PO 650 mg Q4H PRN Administration Headache/Fever/Mild Pain (1-3) Allopurinol 100 mg 07/28/19 21:00 07/31/19 09:14 Zyloprim PO 100 mg BID TYREL Administration Aspirin 81 mg 07/29/19 09:00 07/31/19 09:14 Aspirin Chewable PO 81 mg DAILY TYREL Administration Atorvastatin Calcium 20 mg 07/28/19 21:00 07/30/19 21:02 Lipitor PO 20 mg HS TYREL Administration Calcitriol 0.25 mcg 07/28/19 21:00 07/31/19 09:14 Rocaltrol PO 0.25 mcg BID TYREL Administration Carvedilol 6.25 mg 07/31/19 08:00 07/31/19 09:14 Coreg PO 6.25 mg BID-WM TYREL Administration Digoxin 0.125 mg 07/29/19 09:00 07/31/19 09:13 Lanoxin PO 0.125 mg DAILY TYREL Administration Escitalopram Oxalate 10 mg 07/29/19 09:00 07/31/19 09:13 Lexapro PO 10 mg DAILY TYREL Administration Famotidine 20 mg 07/29/19 09:00 07/31/19 09:14 Pepcid PO 20 mg DAILY TYREL Administration Ferrous Sulfate 325 mg 07/29/19 09:00 07/31/19 09:14 Feosol PO 325 mg DAILY TYREL Administration Furosemide 40 mg 07/28/19 14:00 07/31/19 14:25 Lasix SLOW IVP 40 mg 0600,1400 TYREL Administration Insulin Glargine 34 units/ 0.34 mls @ 0 mls/hr 07/29/19 09:00 07/31/19 09:15 Miscellaneous Medication SC 0.34 mls QAM TYREL Administration Insulin Human Lispro 0 units 07/28/19 11:06 07/29/19 16:53 Humalog SC 2 unit .MODERATE SLIDING SC PRN Administration Moderate Correctional Scale Latanoprost 1 drop 07/28/19 21:00 07/30/19 21:03 Xalatan 0.005% Oph Soleric EA EYE 1 drop HS TYREL Administration Levofloxacin 500 mg 07/31/19 06:00 07/31/19 06:01 Levaquin PO 500 mg 0600 TYREL Administration Levothyroxine Sodium 112 mcg 07/29/19 06:00 07/31/19 06:01 Synthroid PO 112 mcg 0600 TYREL Administration Lisinopril 2.5 mg 07/29/19 09:00 07/31/19 09:14 Zestril PO 2.5 mg DAILY TYREL Administration Sodium Chloride 10 ml 07/31/19 09:00 07/31/19 09:15 Flush - Normal Saline IVF 10 ml Q12HR TYREL Administration Trazodone HCl 50 mg 07/28/19 21:00 07/30/19 21:03 Desyrel PO 50 mg HS TYREL Administration Warfarin Sodium 2.5 mg 07/28/19 17:00 07/30/19 16:54 Coumadin PO 2.5 mg 1700 TYREL Administration - Exam General Appearance: NAD, awake alert Eye: PERRL, anicteric sclera ENT: normocephalic atraumatic, moist mucosa Neck: supple, symmetric Heart: no murmur, no gallops, no rubs Respiratory: no wheezes, no ronchi, normal chest expansion, no tachypnea, rales Gastrointestinal: soft, non-tender, no guarding, no rigidity Extremities: 1+ LE edema Skin: no lesions, no rashes Neurological: cranial nerve grossly intact, no focal deficits Musculoskeletal: generalized weakness Psychiatric: normal affect, normal behavior, A&O x 3 Hosp A/P (1) Acute exacerbation of CHF (congestive heart failure) Code(s): I50.9 - HEART FAILURE, UNSPECIFIED Status: Acute Qualifiers: Heart failure type: diastolic Qualified Code(s): I50.33 - Acute on chronic diastolic (congestive) heart failure (2) Atrial fibrillation Code(s): I48.91 - UNSPECIFIED ATRIAL FIBRILLATION Status: Active (3) Renovascular hypertension Code(s): I15.0 - RENOVASCULAR HYPERTENSION Status: Active (4) Cardiomyopathy Code(s): I42.9 - CARDIOMYOPATHY, UNSPECIFIED Status: Chronic (5) Chronic kidney disease stage 3 Code(s): N18.3 - CHRONIC KIDNEY DISEASE, STAGE 3 (MODERATE) Status: Chronic (6) Diabetes mellitus type 2 Code(s): E11.9 - TYPE 2 DIABETES MELLITUS WITHOUT COMPLICATIONS Status: Chronic (7) Dyslipidemia Code(s): E78.5 - HYPERLIPIDEMIA, UNSPECIFIED Status: Chronic
[2019-07-31] MEDS: Warfarin Sodium 2.5 MG TAB PO SCH (17:44)
[2019-07-31] MEDS: Atorvastatin Calcium 20 MG TAB PO SCH (21:04)
[2019-07-31] MEDS: traZODone HCl 50 MG TAB PO SCH (21:04)
[2019-07-31] MEDS: Latanoprost 0.005% Ophth Soln 2.5 ml Bottle EA EYE SCH (21:04)
[2019-07-31] MEDS: Acetaminophen 325 MG TAB PO PRN (21:09)
[2019-08-01 05:21] LABS: INR-International Normal Ratio 1.5; Prothrombin Time 17.6 SEC (12.0-14.7)
[2019-08-01 05:32] LABS: Anion Gap 16 mmol/L (10-20); BUN (Urea Nitrogen) 23 mg/dL (9.8-20.1); Calc. Creatinine Clearance 69 mL/min (70-130); Calcium 10.3 mg/dL (7.8-10.44); Carbon Dioxide 27 mmol/L (23-31); Chloride 97 mmol/L (98-107); Estimated GFR-MDRD 32; Glucose 110 mg/dL (83-110); Potassium 3.1 mmol/L (3.5-5.1); Sodium 137 mmol/L (136-145)
[2019-08-01] MEDS: Levothyroxine Sodium 112 MCG TAB PO SCH (06:01)
[2019-08-01] MEDS: Furosemide 40 MG/4 ML VIAL SLOW IVP SCH ×2 (06:02→16:17)
[2019-08-01] MEDS ORDERED: Warfarin Sodium 5 MG TAB PO SCH (07:45)
[2019-08-01] MEDS: Lisinopril 2.5 MG TAB PO SCH (08:59)
[2019-08-01] MEDS: Calcitriol 0.25 MCG CAP PO SCH ×2 (08:59→20:54)
[2019-08-01] MEDS: Famotidine 20 MG TAB PO SCH (08:59)
[2019-08-01] MEDS: Digoxin 0.125 MG TAB PO SCH (08:59)
[2019-08-01] MEDS: Ferrous Sulfate 325 MG TAB PO SCH (08:59)
[2019-08-01] MEDS: Aspirin Chewable 81 MG TAB PO SCH (09:00)
[2019-08-01] MEDS: Allopurinol 100 MG TAB PO SCH ×2 (09:00→20:54)
[2019-08-01] MEDS: Escitalopram Oxalate 10 mg Tablet PO SCH (09:00)
[2019-08-01] MEDS: Insulin Glargine 34 UNITS in Pre-Filled Syringe 1 EACH SC SCH (09:00)
[2019-08-01] MEDS: Carvedilol 6.25 MG TAB PO SCH ×2 (09:00→18:56)
[2019-08-01] MEDS ORDERED: Ondansetron PF 4 MG/2 ML Vial IVP PRN (11:50)
[2019-08-01] MEDS ORDERED: Ondansetron ODT 4 MG TAB PO PRN (11:50)
--- NOTE | 2019-08-01 17:59 | PDOC.HOSPP ---
- Subjective Subjective: Seen and examined on the medical unit with telemetry breathing comfortably on room air. Patient's INR has not trended up, extra doses of Coumadin for two days in a row. Patient does not have Coumadin managed in the outpatient clinic in does not get blood tests regularly, we will need to have confirmed someone managing her Coumadin before discharge, coumadin clinic. - Objective Vital Signs & Weight: Vital Signs (12 hours) Temp Pulse Pulse Pulse Resp BP BP 08/01/19 16:01 97.6 F 70 16 08/01/19 16:00 70 08/01/19 12:18 74 70 117/71 118/61 08/01/19 11:54 97.3 F L 77 18 08/01/19 07:37 97.4 F L 71 16 BP BP Pulse Ox Pulse Ox Pulse Ox 08/01/19 16:01 135/65 95 08/01/19 16:00 128/60 92 L 08/01/19 12:18 96 94 L 08/01/19 11:54 114/58 L 95 08/01/19 07:37 120/84 91 L Weight Weight 146 lb 11.2 oz I&O: 07/31/19 08/01/19 08/02/19 06:59 06:59 06:59 Intake Total 220 720 Output Total 450 650 Balance -230 70 Result Diagrams: 07/29/19 16:41 08/01/19 04:53 Additional Labs: Accuchecks 08/01/19 08/01/19 08/01/19 16:31 10:38 06:05 POC Glucose 166 H 94 111 H 07/31/19 20:18 POC Glucose 157 H Radiology Reviewed by me: Yes Hospitalist ROS - Review of Systems All other systems reviewed; all pertinent +/- noted in HPI/Subj - Medication Medications: Active Medications Generic Name Dose Route Start Last Admin Trade Name Freq PRN Reason Stop Dose Admin Acetaminophen 650 mg 07/28/19 11:06 07/31/19 21:09 Tylenol PO 650 mg Q4H PRN Administration Headache/Fever/Mild Pain (1-3) Allopurinol 100 mg 07/28/19 21:00 08/01/19 09:00 Zyloprim PO 100 mg BID TYREL Administration Aspirin 81 mg 07/29/19 09:00 08/01/19 09:00 Aspirin Chewable PO 81 mg DAILY TYREL Administration Atorvastatin Calcium 20 mg 07/28/19 21:00 07/31/19 21:04 Lipitor PO 20 mg HS [facility] Administration Calcitriol 0.25 mcg 07/28/19 21:00 08/01/19 08:59 Rocaltrol PO 0.25 mcg BID [facility] Administration Carvedilol 6.25 mg 07/31/19 08:00 08/01/19 09:00 Coreg PO 6.25 mg BID-WM [facility] Administration Digoxin 0.125 mg 07/29/19 09:00 08/01/19 08:59 Lanoxin PO 0.125 mg DAILY TYREL Administration Escitalopram Oxalate 10 mg 07/29/19 09:00 08/01/19 09:00 Lexapro PO 10 mg DAILY [facility] Administration Famotidine 20 mg 07/29/19 09:00 08/01/19 08:59 Pepcid PO 20 mg DAILY [facility] Administration Ferrous Sulfate 325 mg 07/29/19 09:00 08/01/19 08:59 Feosol PO 325 mg DAILY [facility] Administration Furosemide 40 mg 07/28/19 14:00 08/01/19 16:17 Lasix SLOW IVP 40 mg 0600,1400 [facility] Administration Insulin Glargine 34 units/ 0.34 mls @ 0 mls/hr 07/29/19 09:00 08/01/19 09:00 Miscellaneous Medication SC Not Given QAM [facility] Insulin Human Lispro 0 units 07/28/19 11:06 07/29/19 16:53 Humalog SC 2 unit .MODERATE SLIDING SC PRN Administration Moderate Correctional Scale Latanoprost 1 drop 07/28/19 21:00 07/31/19 21:04 Xalatan 0.005% Oph Soln EA EYE 1 drop HS [facility] Administration Levofloxacin 500 mg 07/31/19 06:00 08/01/19 06:01 Levaquin PO 500 mg 0600 [facility] Administration Levothyroxine Sodium 112 mcg 07/29/19 06:00 08/01/19 06:01 Synthroid PO 112 mcg 0600 [facility] Administration Lisinopril 2.5 mg 07/29/19 09:00 08/01/19 08:59 Zestril PO 2.5 mg DAILY [facility] Administration Ondansetron HCl 4 mg 08/01/19 11:50 08/01/19 16:16 Zofran IVP 4 mg Q6H PRN Administration Nausea/Vomiting Sodium Chloride 10 ml 07/31/19 09:00 08/01/19 16:17 Flush - Normal Saline IVF 10 ml Q12HR TYREL Administration Trazodone HCl 50 mg 07/28/19 21:00 07/31/19 21:04 Desyrel PO 50 mg HS TYREL Administration Warfarin Sodium 2.5 mg 07/28/19 17:00 07/31/19 17:44 Coumadin PO 2.5 mg 1700 TYREL Administration - Exam General Appearance: NAD, awake alert Eye: anicteric sclera ENT: normocephalic atraumatic, moist mucosa Neck: supple, symmetric, no lymphadenopathy Heart: no murmur, no gallops, no rubs Respiratory: CTAB, no wheezes, no ronchi, normal chest expansion, no tachypnea, rales (very faint) Gastrointestinal: soft, non-tender, no guarding, no rigidity Extremities: 1+ LE edema Skin: no lesions, no rashes Neurological: cranial nerve grossly intact, no focal deficits Musculoskeletal: generalized weakness Psychiatric: A&O x 3 Hosp A/P (1) Acute exacerbation of CHF (congestive heart failure) Code(s): I50.9 - HEART FAILURE, UNSPECIFIED Status: Acute Qualifiers: Heart failure type: diastolic Qualified Code(s): I50.33 - Acute on chronic diastolic (congestive) heart failure (2) Atrial fibrillation Code(s): I48.91 - UNSPECIFIED ATRIAL FIBRILLATION Status: Active (3) Renovascular hypertension Code(s): I15.0 - RENOVASCULAR HYPERTENSION Status: Active (4) Cardiomyopathy Code(s): I42.9 - CARDIOMYOPATHY, UNSPECIFIED Status: Chronic (5) Chronic kidney disease stage 3 Code(s): N18.3 - CHRONIC KIDNEY DISEASE, STAGE 3 (MODERATE) Status: Chronic (6) Diabetes mellitus type 2 Code(s): E11.9 - TYPE 2 DIABETES MELLITUS WITHOUT COMPLICATIONS Status: Chronic (7) Dyslipidemia Code(s): E78.5 - HYPERLIPIDEMIA, UNSPECIFIED Status: Chronic - Plan Plan: medical unit with telemetry cardiology consultation, recommendations appreciated continuous telemetry to monitor for arrhythmia IV Lasix for CHF exacerbation fluid restrictions patient's INR is sub therapeutic and she will need to be followed up in the Coumadin clinic we will need to confirm who will be managing her Coumadin prior to discharge, patient tells me that she does not get blood tests regularly and has not been monitoring this for the past several months blood pressure control blood sugar control continue other home medications as able G.I. prophylaxis DVT prophylaxis
[2019-08-01] MEDS: Warfarin Sodium 2.5 MG TAB PO SCH (18:55)
[2019-08-01] MEDS: Atorvastatin Calcium 20 MG TAB PO SCH (20:54)
[2019-08-01] MEDS: traZODone HCl 50 MG TAB PO SCH (20:55)
[2019-08-01] MEDS: Latanoprost 0.005% Ophth Soln 2.5 ml Bottle EA EYE SCH (20:58)
[2019-08-02 04:49] LABS: INR-International Normal Ratio 1.7
[2019-08-02 05:10] LABS: Anion Gap 12 mmol/L (10-20); BUN (Urea Nitrogen) 31 mg/dL (9.8-20.1); Calc. Creatinine Clearance 23 mL/min (70-130); Calcium 10.1 mg/dL (7.8-10.44); Carbon Dioxide 32 mmol/L (23-31); Chloride 97 mmol/L (98-107); Estimated GFR-MDRD 23; Glucose 110 mg/dL (83-110); Potassium 3.3 mmol/L (3.5-5.1); Sodium 138 mmol/L (136-145)
[2019-08-02] MEDS: Furosemide 40 MG/4 ML VIAL SLOW IVP SCH (06:09)
[2019-08-02] MEDS: Levothyroxine Sodium 112 MCG TAB PO SCH (06:09)
[2019-08-02] MEDS ORDERED: Warfarin Sodium 5 MG TAB PO SCH (07:45)
[2019-08-02] MEDS: Aspirin Chewable 81 MG TAB PO SCH (09:35)
[2019-08-02] MEDS: Calcitriol 0.25 MCG CAP PO SCH ×2 (09:35→21:08)
[2019-08-02] MEDS: Allopurinol 100 MG TAB PO SCH ×2 (09:35→21:08)
[2019-08-02] MEDS: Ferrous Sulfate 325 MG TAB PO SCH (09:35)
[2019-08-02] MEDS: Famotidine 20 MG TAB PO SCH (09:35)
[2019-08-02] MEDS: Escitalopram Oxalate 10 mg Tablet PO SCH (09:35)
[2019-08-02] MEDS: Carvedilol 6.25 MG TAB PO SCH ×2 (09:37→18:12)
[2019-08-02] MEDS: Lisinopril 2.5 MG TAB PO SCH (09:37)
[2019-08-02] MEDS: Insulin Glargine 34 UNITS in Pre-Filled Syringe 1 EACH SC SCH (09:37)
[2019-08-02] MEDS: Digoxin 0.125 MG TAB PO SCH (09:37)
[2019-08-02] MEDS: HumaLOG 300 UNITS/3 ML VIAL SC PRN ×2 (13:43→18:19)
--- NOTE | 2019-08-02 14:07 | PDOC.HOSPP ---
- Subjective Subjective: Seen and examined. Breathing comfortably on low-flow nasal cannula this a.m. We have had a mild improvement in her INR up trending from 1.5 to 1.7. We still do not have confirmation on who will be managing their Coumadin in the outpatient clinic. Patient tells me she is not had Coumadin blood draws regularly for several months. If we do not have someone who is willing to consulting services project manager Coumadin, she may need to be discontinued. Although she lives in an assisted living facility she is still a fall risk. - Objective Vital Signs & Weight: Vital Signs (12 hours) Temp Pulse Pulse Pulse Resp BP BP 08/02/19 12:33 72 70 109/59 L 101/55 L 08/02/19 11:25 97.6 F 67 20 08/02/19 09:37 70 08/02/19 07:40 97 F L 70 20 08/02/19 04:06 97.8 F 72 16 BP Pulse Ox Pulse Ox Pulse Ox 08/02/19 12:33 92 L 94 L 08/02/19 11:25 101/57 L 93 L 08/02/19 09:37 08/02/19 07:40 104/52 L 96 08/02/19 04:06 112/56 L 98 Weight Weight 145 lb I&O: 08/01/19 08/02/19 08/03/19 06:59 06:59 06:59 Intake Total 720 290 Output Total 650 250 Balance 70 40 Result Diagrams: 07/29/19 16:41 08/02/19 04:30 Additional Labs: Accuchecks 08/02/19 08/01/19 08/01/19 12:47 21:12 16:31 POC Glucose 229 H 169 H 166 H Radiology Reviewed by me: Yes Hospitalist ROS - Review of Systems All other systems reviewed; all pertinent +/- noted in HPI/Subj - Medication Medications: Active Medications Generic Name Dose Route Start Last Admin Trade Name Freq PRN Reason Stop Dose Admin Acetaminophen 650 mg 07/28/19 11:06 07/31/19 21:09 Tylenol PO 650 mg Q4H PRN Administration Headache/Fever/Mild Pain (1-3) Allopurinol 100 mg 07/28/19 21:00 08/02/19 09:35 Zyloprim PO 100 mg BID TYREL Administration Aspirin 81 mg 07/29/19 09:00 08/02/19 09:35 Aspirin Chewable PO 81 mg DAILY [facility] Administration Atorvastatin Calcium 20 mg 07/28/19 21:00 08/01/19 20:54 Lipitor PO 20 mg HS TYREL Administration Calcitriol 0.25 mcg 07/28/19 21:00 08/02/19 09:35 Rocaltrol PO 0.25 mcg BID [facility] Administration Carvedilol 6.25 mg 07/31/19 08:00 08/02/19 09:37 Coreg PO 6.25 mg BID-WM [facility] Administration Digoxin 0.125 mg 07/29/19 09:00 08/02/19 09:37 Lanoxin PO 0.125 mg DAILY [facility] Administration Escitalopram Oxalate 10 mg 07/29/19 09:00 08/02/19 09:35 Lexapro PO 10 mg DAILY TYREL Administration Famotidine 20 mg 07/29/19 09:00 08/02/19 09:35 Pepcid PO 20 mg DAILY [facility] Administration Ferrous Sulfate 325 mg 07/29/19 09:00 08/02/19 09:35 Feosol PO 325 mg DAILY TYREL Administration Insulin Glargine 34 units/ 0.34 mls @ 0 mls/hr 07/29/19 09:00 08/02/19 09:37 Miscellaneous Medication SC 0.34 mls QAM [facility] Administration Insulin Human Lispro 0 units 07/28/19 11:06 08/02/19 13:43 Humalog SC 4 unit .MODERATE SLIDING SC PRN Administration Moderate Correctional Scale Latanoprost 1 drop 07/28/19 21:00 08/01/19 20:58 [facility] Administration Levofloxacin 500 mg 07/31/19 06:00 08/02/19 06:09 Levaquin PO 500 mg 0600 [facility] Administration Levothyroxine Sodium 112 mcg 07/29/19 06:00 08/02/19 06:09 Synthroid PO 112 mcg 0600 [facility] Administration Lisinopril 2.5 mg 07/29/19 09:00 08/02/19 09:37 Zestril PO 2.5 mg DAILY [facility] Administration Ondansetron HCl 4 mg 08/01/19 11:50 08/01/19 16:16 Zofran IVP 4 mg Q6H PRN Administration Nausea/Vomiting Sodium Chloride 10 ml 07/31/19 09:00 08/02/19 09:38 Flush - Normal Saline IVF 10 ml Q12HR TYREL Administration Sodium Chloride 10 ml 07/31/19 07:55 08/02/19 06:09 Flush - Normal Saline IVF 10 ml PRN PRN Administration Saline Flush Trazodone HCl 50 mg 07/28/19 21:00 08/01/19 20:55 Desyrel PO 50 mg HS TYREL Administration Warfarin Sodium 2.5 mg 07/28/19 17:00 08/01/19 18:55 Coumadin PO 2.5 mg 1700 TYREL Administration - Exam General Appearance: NAD, awake alert Eye: anicteric sclera ENT: normocephalic atraumatic, no oropharyngeal lesions Neck: symmetric, no lymphadenopathy Heart: no murmur, no gallops, no rubs Respiratory: no wheezes, no rales, no ronchi Gastrointestinal: soft, non-tender, no guarding, no rigidity Extremities: 1+ LE edema Skin: no lesions, no rashes Neurological: cranial nerve grossly intact, no focal deficits Musculoskeletal: generalized weakness Psychiatric: oriented to person, oriented to place Hosp A/P (1) Acute exacerbation of CHF (congestive heart failure) Code(s): I50.9 - HEART FAILURE, UNSPECIFIED Status: Acute Qualifiers: Heart failure type: diastolic Qualified Code(s): I50.33 - Acute on chronic diastolic (congestive) heart failure (2) Atrial fibrillation Code(s): I48.91 - UNSPECIFIED ATRIAL FIBRILLATION Status: Active (3) Renovascular hypertension Code(s): I15.0 - RENOVASCULAR HYPERTENSION Status: Active (4) Cardiomyopathy Code(s): I42.9 - CARDIOMYOPATHY, UNSPECIFIED Status: Chronic (5) Chronic kidney disease stage 3 Code(s): N18.3 - CHRONIC KIDNEY DISEASE, STAGE 3 (MODERATE) Status: Chronic (6) Diabetes mellitus type 2 Code(s): E11.9 - TYPE 2 DIABETES MELLITUS WITHOUT COMPLICATIONS Status: Chronic (7) Dyslipidemia Code(s): E78.5 - HYPERLIPIDEMIA, UNSPECIFIED Status: Chronic (8) GISSELLE (acute kidney injury) Code(s): N17.9 - ACUTE KIDNEY FAILURE, UNSPECIFIED Status: Acute - Plan Plan: medical unit with telemetry cardiology consultation, recommendations appreciated continuous telemetry to monitor for arrhythmia IV Lasix for CHF exacerbation, hold for GISSELLE fluid restrictions patient's INR is sub therapeutic and she will need to be followed up in the Coumadin clinic we will need to confirm who will be managing her Coumadin prior to discharge, patient tells me that she does not get blood tests regularly and has not been monitoring this for the past several months blood pressure control blood sugar control continue other home medications as able G.I. prophylaxis DVT prophylaxis
[2019-08-02] MEDS: Warfarin Sodium 2.5 MG TAB PO SCH (18:11)
[2019-08-02] MEDS: Latanoprost 0.005% Ophth Soln 2.5 ml Bottle EA EYE SCH (21:09)
[2019-08-02] MEDS: Atorvastatin Calcium 20 MG TAB PO SCH (21:09)
[2019-08-02] MEDS: traZODone HCl 50 MG TAB PO SCH (21:09)
[2019-08-03] MEDS: Acetaminophen 325 MG TAB PO PRN (02:07)
[2019-08-03 04:56] LABS: INR-International Normal Ratio 2.9; Prothrombin Time 30.1 SEC (12.0-14.7)
[2019-08-03 05:08] LABS: Anion Gap 15 mmol/L (10-20); BUN (Urea Nitrogen) 41 mg/dL (9.8-20.1); Calc. Creatinine Clearance 17 mL/min (70-130); Calcium 9.9 mg/dL (7.8-10.44); Carbon Dioxide 29 mmol/L (23-31); Chloride 97 mmol/L (98-107); Estimated GFR-MDRD 17; Glucose 188 mg/dL (83-110); Potassium 3.6 mmol/L (3.5-5.1); Sodium 137 mmol/L (136-145)
[2019-08-03] MEDS: Levothyroxine Sodium 112 MCG TAB PO SCH (06:19)
--- NOTE | 2019-08-03 08:02 | PDOC.HOSPP ---
- Subjective Encounter Date: 08/03/19 Encounter Time: 10:00 Subjective: Patient without complaint. A bit tired after ambulating in the hallways. Ready to go home but doesn't know how to get a ride back to [place]. - Objective Vital Signs & Weight: Vital Signs (12 hours) Temp Pulse Resp BP Pulse Ox 08/03/19 04:22 97.9 F 71 20 108/50 L 94 L 08/02/19 23:00 97.6 F 70 18 110/54 L 97 08/02/19 21:08 98.3 F 70 20 122/67 94 L Weight Weight 146 lb 3.2 oz I&O: 08/02/19 08/03/19 08/04/19 06:59 06:59 06:59 Intake Total 290 1560 Output Total 250 600 Balance 40 960 Result Diagrams: 07/29/19 16:41 08/03/19 04:24 Additional Labs: Accuchecks 08/02/19 08/02/19 08/02/19 21:11 18:20 12:47 POC Glucose 110 170 H 229 H Hospitalist ROS - Review of Systems Constitutional: denies: fever, chills Respiratory: denies: cough, dry, shortness of breath Cardiovascular: denies: chest pain, palpitations Gastrointestinal: denies: nausea, vomiting - Medication Medications: Active Medications Generic Name Dose Route Start Last Admin Trade Name Freq PRN Reason Stop Dose Admin Acetaminophen 650 mg 07/28/19 11:06 08/03/19 02:07 Tylenol PO 650 mg Q4H PRN Administration Headache/Fever/Mild Pain (1-3) Allopurinol 100 mg 07/28/19 21:00 08/02/19 21:08 Zyloprim PO 100 mg BID TYREL Administration Aspirin 81 mg 07/29/19 09:00 08/02/19 09:35 Aspirin Chewable PO 81 mg DAILY TYREL Administration Atorvastatin Calcium 20 mg 07/28/19 21:00 08/02/19 21:09 Lipitor PO 20 mg HS TYREL Administration Calcitriol 0.25 mcg 07/28/19 21:00 08/02/19 21:08 Rocaltrol PO 0.25 mcg BID TYREL Administration Carvedilol 6.25 mg 07/31/19 08:00 08/02/19 18:12 Coreg PO 6.25 mg BID-WM TYREL Administration Digoxin 0.125 mg 07/29/19 09:00 08/02/19 09:37 Lanoxin PO 0.125 mg DAILY TYREL Administration Escitalopram Oxalate 10 mg 07/29/19 09:00 08/02/19 09:35 Lexapro PO 10 mg DAILY T[facility] Administration Famotidine 20 mg 07/29/19 09:00 08/02/19 09:35 Pepcid PO 20 mg DAILY TYREL Administration Ferrous Sulfate 325 mg 07/29/19 09:00 08/02/19 09:35 Feosol PO 325 mg DAILY TYREL Administration Insulin Glargine 34 units/ 0.34 mls @ 0 mls/hr 07/29/19 09:00 08/02/19 09:37 Miscellaneous Medication SC 0.34 mls QAM T[facility] Administration Insulin Human Lispro 0 units 07/28/19 11:06 08/02/19 18:19 Humalog SC 2 unit .MODERATE SLIDING SC PRN Administration Moderate Correctional Scale Latanoprost 1 drop 07/28/19 21:00 08/02/19 21:09 Xalatan 0.005% Oph Soln EA EYE 1 drop HS [facility] Administration Levofloxacin 500 mg 07/31/19 06:00 08/03/19 06:19 Levaquin PO 500 mg 0600 [facility] Administration Levothyroxine Sodium 112 mcg 07/29/19 06:00 08/03/19 06:19 Synthroid PO 112 mcg 0600 T[facility] Administration Lisinopril 2.5 mg 07/29/19 09:00 08/02/19 09:37 Zestril PO 2.5 mg DAILY T[facility]ER[facility] Administration Ondansetron HCl 4 mg 08/01/19 11:50 08/01/19 16:16 Zofran IVP 4 mg Q6H PRN Administration Nausea/Vomiting Sodium Chloride 10 ml 07/31/19 09:00 08/02/19 21:10 Flush - Normal Saline IVF Not Given Q12HR [facility] Sodium Chloride 10 ml 07/31/19 07:55 08/02/19 06:09 Flush - Normal Saline IVF 10 ml PRN PRN Administration Saline Flush Trazodone HCl 50 mg 07/28/19 21:00 08/02/19 21:09 Desyrel PO 50 mg HS TYREL Administration Warfarin Sodium 2.5 mg 07/28/19 17:00 08/02/19 18:11 Coumadin PO 2.5 mg 1700 TYREL Administration - Exam General Appearance: NAD, awake alert ENT: moist mucosa Heart: RRR, no murmur, no gallops, no rubs Respiratory: CTAB, no wheezes, no rales, no ronchi Gastrointestinal: soft, non-tender, non-distended, normal bowel sounds Psychiatric: normal affect, normal behavior, A&O x 3 Hosp A/P (1) Acute on chronic systolic (congestive) heart failure Code(s): I50.23 - ACUTE ON CHRONIC SYSTOLIC (CONGESTIVE) HEART FAILURE Status : Acute (2) Atrial fibrillation Code(s): I48.91 - UNSPECIFIED ATRIAL FIBRILLATION Status: Chronic (3) Hypertension Code(s): I10 - ESSENTIAL (PRIMARY) HYPERTENSION Status: Chronic Qualifiers: Hypertension type: essential hypertension Qualified Code(s): I10 - Essential (primary) hypertension (4) Chronic kidney disease stage 3 Code(s): N18.3 - CHRONIC KIDNEY DISEASE, STAGE 3 (MODERATE) Status: Chronic (5) Diabetes mellitus type 2 Code(s): E11.9 - TYPE 2 DIABETES MELLITUS WITHOUT COMPLICATIONS Status: Chronic (6) Dyslipidemia Code(s): E78.5 - HYPERLIPIDEMIA, UNSPECIFIED Status: Chronic - Plan D/c today if ok with cardiology, f/u coumadin clinic outpatient Spoke with Dr. Vidales about increasing creatinine. Will have patient hold Torsemide and potassium, recheck BMP in 2 days and then restart if improving.
[2019-08-03] MEDS: Insulin Glargine 34 UNITS in Pre-Filled Syringe 1 EACH SC SCH (08:34)
[2019-08-03] MEDS: Allopurinol 100 MG TAB PO SCH (08:37)
[2019-08-03] MEDS: Lisinopril 2.5 MG TAB PO SCH ×2 (08:37→08:40)
[2019-08-03] MEDS: Digoxin 0.125 MG TAB PO SCH (08:37)
[2019-08-03] MEDS: Calcitriol 0.25 MCG CAP PO SCH (08:37)
[2019-08-03] MEDS: Aspirin Chewable 81 MG TAB PO SCH (08:38)
[2019-08-03] MEDS: Ferrous Sulfate 325 MG TAB PO SCH (08:38)
[2019-08-03] MEDS: Carvedilol 6.25 MG TAB PO SCH ×2 (08:38→16:39)
[2019-08-03] MEDS: Famotidine 20 MG TAB PO SCH (08:38)
[2019-08-03] MEDS: Escitalopram Oxalate 10 mg Tablet PO SCH (08:38)
[2019-08-03] MEDS: HumaLOG 300 UNITS/3 ML VIAL SC PRN (11:17)
[2019-08-03 15:43] VITALS: BP 124/58; TEMP 97.7
[2019-08-03] MEDS: Warfarin Sodium 2.5 MG TAB PO SCH (16:39)
--- NOTE | 2019-08-04 05:18 | DIS ---
DATE OF ADMISSION: 07/28/2019 DATE OF DISCHARGE: 08/03/2019 PRIMARY CARE PHYSICIAN: Dr. Doran. REASON FOR ADMISSION: CHF exacerbation. DIAGNOSES AT DISCHARGE: 1. Acute on chronic systolic congestive heart failure with an ejection fraction of 15% to 20%. 2. Chronic atrial fibrillation. 3. Hypertension. 4. Acute on chronic kidney disease, stage 3. 5. Diabetes mellitus type 2. 6. Dyslipidemia. 7. Pneumonia, completed antibiotic treatment. PROCEDURES: 1. CT of the chest without contrast showing parenchymal lung changes, most suggestive of infiltrative changes in both lung bases and in the right middle lobe. Lesser changes in both upper lobes. Loculated appearing right-sided effusion also noted. 2. Echocardiogram showing ejection fraction of 15% to 20% with a normally functioning bioprosthetic valve. CONSULTATIONS: Cardiology, Dr. Aburto. SUMMARY OF HOSPITAL COURSE: This is an 78-year-old white female patient, resident of assisted living at the [facility]. She developed shortness of breath over a couple days, slowly getting worse, some dry coughing spells, but no fever. The patient was brought into the hospital. There, she was noted to be in acute congestive heart failure exacerbation. Dr. Aburto was consulted and the patient was diuresed. Dr. Vidales is her education technician and took over care. The patient had marked improvement in her symptoms with diuresis. She was also put on antibiotics. CT scan did show possible pneumonia and initially did have a mildly elevated white blood cell count. This resolved and she finished a seven day course of Levaquin. The patient was doing well the day of discharge. She did have some elevations in her creatinine with the IV diuresis, so her diuretics are being discontinued. She is to follow up in the Heart Failure Clinic in 2 days to get this rechecked and possibly restart her outpatient torsemide at that time. DISCHARGE MANAGEMENT: Discharged back to the [facility]. ACTIVITY: As tolerated. DIET: Diabetic fluid-restricted low-sodium diet. FOLLOWUP: Follow up with Coumadin Clinic for her chronic atrial fibrillation and anticoagulation with cardiac rehab and Heart Failure Clinic as directed, with Dr. Vidales as directed and with Dr. Doran in one day. DISCHARGE MEDICATIONS: 1. Aspirin 81 mg daily, 30 tablets dispensed. 2. Allopurinol 100 mg twice a day. 3. Atorvastatin 20 mg at night. 4. Lumigan one drop each eye at night. 5. Calcitriol 0.25 mg twice a day. 6. Carvedilol 6.25 mg twice a day. 7. Digoxin 0.125 mg daily. 8. Lexapro 10 mg daily. 9. Ferrous sulfate 325 mg daily. 10. Levothyroxine 112 mcg daily. 11. Trazodone 50 mg at night. 12. Glipizide 15 mg twice a day. 13. Insulin Levemir 34 units daily. 14. Torsemide 20 mg daily and potassium chloride 10 mEq daily to be held for the next 2 days until creatinine recheck. 15. Warfarin 2.5 mg daily. TIME SPENT: Arranging the details of this discharge took 32 minutes. Job ID: [id number] MTDD
== END 2019-08-03 17:54 | disposition home health service (06) | DRG 291 ==
LOC: ERS 05:02 → 2SW 06:50 → OBSVTOIN 06:50
PROVIDERS: ADMIT Internal Medicine; ATTEND Internal Medicine
DX: I13.0 Hypertensive heart and chronic kidney disease with heart failure and stage 1 through stage 4 chronic kidney disease, or unspecified chronic kidney disease (principal); I50.23 Acute on chronic systolic (congestive) heart failure; J18.9 Pneumonia, unspecified organism; J96.01 Acute respiratory failure with hypoxia; I48.20 Chronic atrial fibrillation, unspecified; N17.9 Acute kidney failure, unspecified; N18.3 Chronic kidney disease, stage 3 (moderate); E11.22 Type 2 diabetes mellitus with diabetic chronic kidney disease; E78.5 Hyperlipidemia, unspecified; F32.9 Major depressive disorder, single episode, unspecified; E03.9 Hypothyroidism, unspecified; I42.9 Cardiomyopathy, unspecified; Z95.810 Presence of automatic (implantable) cardiac defibrillator; Z90.49 Acquired absence of other specified parts of digestive tract; Z82.3 Family history of stroke; Z95.2 Presence of prosthetic heart valve; I08.1 Rheumatic disorders of both mitral and tricuspid valves; D63.1 Anemia in chronic kidney disease; R79.1 Abnormal coagulation profile
CPT/HCPCS: 36415; 36416; 71045; 71250; 80048; 80053; 82553; 83605; 83880; 84443; 84484; 85025; 85610; 87040; 87633; 93005; 93306; 93798; 96365; 96366; 96367; 96375; J0692; J0696; J1815; J1940; J1956; J2405; J3370

== ENCOUNTER 2019-09-14 03:19 | Inpatient (IN) | payer MEDICARE, OTHER ==
[2019-09-14 04:16] LABS: Hemoglobin 16.5 g/dL (12.0-16.0); Mean Corpuscular HGB CONC 31.6 g/dL (32.0-36.0); Mean Corpuscular Hemoglobin 30.9 pg (27.0-31.0); Mean Corpuscular Volume 97.8 fL (78.0-98.0); Mean Platelet Volume 9.5 fL (7.4-10.4); Platelet Count 213 thou/uL (130-400); RBC Distribution Width 14.5 % (11.5-14.5); Red Blood Cell (RBC) Count 5.34 mill/uL (4.20-5.40); White Blood Cell (WBC) Count 15.9 thou/uL (4.8-10.8)
[2019-09-14] MEDS ORDERED: Furosemide 40 MG/4 ML VIAL ONE (04:24)
[2019-09-14] MEDS ORDERED: Vancomycin 1 GM/200 ML BAG ONE (04:24)
[2019-09-14] MEDS ORDERED: Cefepime 2 GM VIAL ONE (04:24)
[2019-09-14 04:43] LABS: ALT (SGPT) 32 U/L (8-55); AST (SGOT) 47 U/L (5-34); Albumin 4.1 g/dL (3.4-4.8); Alkaline Phosphatase 114 U/L (40-110); Anion Gap 19 mmol/L (10-20); BUN (Urea Nitrogen) 19 mg/dL (9.8-20.1); Bilirubin, Total 2.1 mg/dL (0.2-1.2); CK (CPK) 58 U/L (29-168); Calc. Creatinine Clearance 0 mL/min (70-130); Calcium 10.3 mg/dL (7.8-10.44); Carbon Dioxide 24 mmol/L (23-31); Chloride 100 mmol/L (98-107); Estimated GFR-MDRD 34; Globulin 3.8 g/dL (2.4-3.5); Glucose 171 mg/dL (83-110); Potassium 4.4 mmol/L (3.5-5.1); Protein, Total 7.9 g/dL (6.0-8.3); Sodium 139 mmol/L (136-145)
[2019-09-14 04:47] LABS: Band 1 % (5-11); Lymphocytes 6 % (21-51); MDiff Complete? YES; Monocytes 3 % (0-10); Neutrophil 90 % (42-75); Platelet Morphology Comment Appears Adequate; RBC Morphology Normal
[2019-09-14 05:03] LABS: CKMB 3.2 ng/mL (0-6.6)
[2019-09-14] MEDS ORDERED: Nitroglycerin 0.4 MG TAB (25 Tab Bottle) SL PRN (05:04)
[2019-09-14 05:10] LABS: Bacteria/HPF 3+ HPF (None Seen); Bilirubin Negative (Negative); Blood, Urine 1+ (Negative); Clarity Extra Turbid (Clear); Glucose, Urine (Dipstick) Normal (Negative); Leukocyte 500 Leu/uL (Negative); Nitrite Negative (Negative); Protein, Urine (Dipstick) 200 mg/dL (Neg-Trace); Squamous Epithelial Greater than 50 HPF (0-3); Urobilinogen Normal mg/dL (Less than 2); WBC/HPF Greater than 50 HPF (0-3)
[2019-09-14 05:14] LABS: INR-International Normal Ratio 1.2; PTT 34.4 SEC (22.9-36.1); Prothrombin Time 15.5 SEC (12.0-14.7)
[2019-09-14] MEDS ORDERED: Dextrose 50% Abboject 50 ML SYRINGE SLOW IVP PRN (05:15)
[2019-09-14] MEDS ORDERED: HumaLOG 300 UNITS/3 ML VIAL SC PRN (05:15)
[2019-09-14] MEDS ORDERED: Dextrose 5% in Water 1,000 ML IV PRN (05:15)
[2019-09-14] MEDS ORDERED: Nitroglycerin 2% Ointment 1 INCH/1 GM Packet ONE (05:16)
[2019-09-14] MEDS ORDERED: Aspirin 325 MG TAB ONE (05:16)
--- NOTE | 2019-09-14 05:25 | PDOC.EVN ---
Event Note - Event Note Event Note: H&P dictated [id number]
--- NOTE | 2019-09-14 05:57 | HP ---
CHIEF COMPLAINT: Shortness of breath. HISTORY OF PRESENT ILLNESS: Ms. Collazo is an 79-year-old female with past medical history of cardiomyopathy with ejection fraction of 15% to 20%, chronic kidney disease, diabetes mellitus, type 2, hyperlipidemia, hypertension, atrial fibrillation, cardiac pacemaker, aortic stenosis, hypothyroidism, anemia, among others, presents to the emergency room with shortness of breath associated with cough and fever. Also, she has been having nausea, also increasing edema. The patient had upper respiratory tract infection symptoms. Also, she vomited. On workup in the emergency room, the patient was tachypneic, head was found to have contusions to the left and right frontals. The patient is on warfarin. Also, she was noted to have 2+ pitting edema. She also was found to have elevated troponin of 0.327. Baseline troponin is around 0.1. Elevated BNP 1778, baseline BNP around 1000. In the emergency room, septic workup was done and patient was started on IV antibiotics. Also, she was given Lasix for ? CHF exacerbation. The patient is being admitted to the hospital for further management. PAST MEDICAL HISTORY: As mentioned above in the history of present illness. PAST SURGICAL HISTORY: 1. Cholecystectomy. 2. Breast biopsy. 3. Appendectomy. 4. Tonsillectomy. 5. Heart catheterization. 6. Pacemaker/AICD. PAST PSYCHIATRIC HISTORY: Depression. SOCIAL HISTORY: Denies alcohol use or smoking. FAMILY HISTORY: Reviewed and noncontributory. HOME MEDICATIONS: Please see home medication reconciliation form for updated medications. ALLERGIES: NO KNOWN ALLERGIES. REVIEW OF SYSTEMS: Review of 14 systems negative except what is mentioned in the history of present illness. PHYSICAL EXAMINATION: GENERAL: The patient is awake, alert, in moderate distress. VITAL SIGNS: Blood pressure is 183/100, pulse is 95, respiratory rate 23, temperature is 98.3. The patient had a temperature of 100.1 before she came to the emergency room. HEAD AND NECK: Normocephalic, atraumatic. NECK: Supple. CHEST: Coarse bilateral breath sounds. HEART: Distant heart sounds. ABDOMEN: Soft, nontender. Bowel sounds present. NEUROLOGIC: Awake, alert. Moving extremities. PSYCH: Unable to assess. EXTREMITIES: Positive for edema. No clubbing. No cyanosis. GENITOURINARY: No suprapubic tenderness. No flank tenderness. LABORATORY DATA: BUN is 19, creatinine 1.4, glucose 171. Troponin 0.32. WBC count is 15.8, hemoglobin 16.5, platelets 213. Chest x-ray shows right lower lobe infiltrate. ASSESSMENT: 1. Sepsis ? pneumonia. 2. Pneumonia, healthcare associated?? 3. Suspected COVID-2019/viral pneumonia cannot be ruled out. 4. Acute on chronic congestive heart failure. 5. Cardiomyopathy with ejection fraction of 15% to 20%. 6. Atrial fibrillation. 7. Pacemaker/AICD. 8. Anticoagulated on warfarin. PLAN: 1. Admit. 2. Telemetry monitoring. 3. Serial troponins. 4. The patient is on warfarin, we will check INR, which was not done in the ED and then reassess. 5. Septic workup including cultures was done in the ED including viral panel and COVID-2019 testing. 6. Isolation precautions for now. 7. Cautious IV diuresis given the septic picture, reassess in a.m. 8. Monitor kidney function and urine output. 9. Consult Cardiology in a.m. the patient's troponin is 0.327, baseline around 0.1. Also, BNP is elevated above her baseline. 10. Reconcile home medications. 11. DVT prophylaxis as appropriate. 12. Expected length of stay, 2 midnights or more. Job ID: [id number]
[2019-09-14 06:23] LABS: Troponin I 0.361 ng/mL (< 0.028)
--- NOTE | 2019-09-14 07:35 | CT ---
PRELIMINARY REPORT/[facility]/EMERGENCY AFTER HOURS PROCEDURE: EXAM: CT Head Without Intravenous Contrast. CLINICAL HISTORY: FALL; AMS/Confusion. Pt uncooperative COMPARISON: CT\SR - CT BRAIN WO CON - 06/15/2018 11:16 AM MONITORING ENGINEER FINDINGS: BRAIN: No acute intracranial hemorrhage, mass-effect, or midline shift. No CT evidence of acute infarct in a large vascular territory. Nonspecific white matter hypoattenuation suggesting chronic age-related small vessel changes. Atherosclerotic calcifications at the skull base. VENTRICLES: Prominent in size, suggesting age-related involution. ORBITS: See dedicated CT facial bones. SINUSES AND MASTOIDS: See dedicated CT facial bones. SOFT TISSUES: Mild right frontal scalp soft tissue swelling. BONES: See dedicated CT facial bones. No depressed calvarial fracture. IMPRESSION: No acute posttraumatic intracranial abnormality. ELECTRONICALLY SIGNED BY: Nicolás Estrella MD Sep 14, 2019 4:39:26 AM CDT This report is intended for review by the ordering physician only, in accordance of law. If you recei ve this report in error, please call [facility] at [phone]. FINAL REPORT EMERGENCY AFTER HOURS CT BRAIN WITHOUT CONTRAST: DATE: 09/14/2019 COMPARISON: 06/15/2018. FINDINGS/IMPRESSION: I agree with the findings and impression given in the preliminary report per [facility] physici an. Small vessel ischemic disease without acute intracranial abnormality.
--- NOTE | 2019-09-14 07:45 | CT ---
PRELIMINARY REPORT/[facility]/EMERGENCY AFTER HOURS PROCEDURE: EXAM: CT Maxillofacial Without Intravenous Contrast. CLINICAL HISTORY: FALL; AMS/Confusion. Pt uncooperative COMPARISON: CT\SR - CT BRAIN WO CON - 06/15/2018 11:16 AM HOSPITAL LIBRARIAN FINDINGS: BONES: Acute minimally displaced left sided nasal bone fracture. No acute fracture is seen in the orbits or remaining facial bones. SOFT TISSUES: Mild nasal soft tissue swelling. Mild right periorbital/right frontal scalp soft tissue swelling. SINUSES: Mild paranasal sinus mucosal thickening. Trace thickening/fluid in the mastoid air cells. ORBITS: Globes, extraocular muscles, and optic nerves appear intact. No retrobulbar hematoma. IMPRESSION: 1. Acute minimally displaced left sided nasal bone fracture. 2. No acute fracture is seen in the orbits or remaining facial bones. ELECTRONICALLY SIGNED BY: Nicolás Estrella MD Sep 14, 2019 4:43:24 AM CDT This report is intended for review by the ordering physician only, in accordance of law. If you recei ve this report in error, please call [facility] at [phone]. FINAL REPORT EMERGENCY AFTER HOURS CT FACE: FINDINGS/IMPRESSION: I agree with the findings and impression given in the preliminary report per [facility] physici an. Left nasal bone fracture.
--- NOTE | 2019-09-14 07:56 | RAD ---
EXAM: CHEST ONE VIEW HISTORY: Cough and shortness of breath. COMPARISON: 07/28/2019 FINDINGS: Triple lead left subclavian AICD device remains in place. Postsurgical changes related to right cardi ac valve replacement are noted. Cardiac silhouette remains enlarged. Parenchymal alveolar airspace opacities are again seen at the right lung base and in the right midlung zone. Suggestion of mild inc reased interstitial densities in the left midlung zone partially obscured by overlying AICD power pack. Tiny right pleural effusion is present. The most inferior aspect left lateral costophrenic angl e is excluded from view. Pulmonary vasculature is within normal limits. No other interval change. IMPRESSION: 1. Parenchymal alveolar airspace opacities in the right midlung zone and right lung base. Opacity kendall ng the right lateral chest is slightly improved. Mild increased interstitial opacities are present in the left midlung zone. Findings are worrisome for multifocal pneumonia. Follow-up to complete reso lution is recommended. 2. Tiny right pleural effusion. 3. Cardiomegaly.
[2019-09-14] MEDS: Furosemide 40 MG/4 ML VIAL SLOW IVP SCH (08:14)
[2019-09-14] MEDS: Aspirin 325 mg Enteric Coated Tablet PO SCH (08:23)
[2019-09-14 08:56] LABS: Lactic Acid 1.5 mmol/L (0.5-2.2)
[2019-09-14 09:11] LABS: Troponin I 0.414 ng/mL (< 0.028)
[2019-09-14] MEDS ORDERED: Vancomycin HCl 0.75 GM in Sodium Chloride 0.9% 250 ML 300 ML IVPB SCH (14:00)
[2019-09-14] MEDS ORDERED: Cefepime 1 GM in Sodium Chloride 0.9% 100 ML IVPB SCH (16:00)
--- NOTE | 2019-09-14 18:11 | CON ---
DATE OF CONSULTATION: HISTORY OF PRESENT ILLNESS: Naheed yepez is an 79-year-old white female with long- standing history of systolic and diastolic congestive heart failure. She was cared for by Dr. Aburto for over a decade and then decided to seek treatment elsewhere. She underwent cardiac catheterization in July 2011 as well as May 2013 with finding of normal coronary arteries. She apparently then sought treatment and evaluation in [place]. It was recommended that she needed an ICD. On August 28, 2013, she underwent placement of a biventricular defibrillator, which did not have an atrial lead placed due to her chronic atrial fibrillation. After placement of biventricular ICD, she had improvement in her shortness of breath. She has been admitted in October 2013 with increased shortness of breath. She was on Lasix 40 q.a.m., this was increased to 40 b.i.d. It did not appear that she had any significant diuresis. Also at that time, her blood pressure was in the 90s and 80s and carvedilol was reduced from 12.5 b.i.d. to 6.25 b.i.d. she was given Zaroxolyn and had excellent diuresis. She was only pacing 50% of the time and digoxin was added to try to slow her rate and increase her biventricular pacing. . When she was discharged, digoxin was not on her discharge medicine list. On November 04, 2013, she was seen by [facility] and it was felt by Electrophysiology that on her previous EKG, the QRS complex was fairly narrow. It was felt that she ultimately would do better with intrinsic conduction whenever possible. The device was then programed to VVI with a fixed rate of 60 per minute, rate response turned off. One week after that, I saw in the office and she denied any shortness of breath. Her furosemide was increased. She then presented in November 2013 with increased shortness of breath for 2 to 3 days prior to admission. She had increased leg edema and rapid ventricular response with her atrial fibrillation. Digoxin was resumed for better rate control. She began to have problems with increasing aortic valve gradient. Ultimately, she underwent TAVR in June 2016 at [facility] in [place]. Apparently, she had normal coronary arteries at that time. When she was seen in followup in January 2017 as well as August 2017, she was doing well. Her ejection fraction was 20% to 25% and she was ventricularly pacing less than 75%. The pacemaker was reprogrammed from 60 to 70 per minute and then she was pacing 100% after that. Echo in November 2017 at [facility] showed ejection fraction of 20% to 25%. She has been very noncompliant with her office followups. Last time she was seen in the office was in August 2017. She has been hospitalized here several times, last of which was July 2019. She was diuresed with improvement in her symptoms. She was placed on Levaquin. She now is admitted with increased shortness of breath. She had a fall on September 09, hitting her head and has bilateral periorbital ecchymoses extending down to her jaw. She has been having increased shortness of breath. She denies any chest discomfort. Last echocardiogram in July revealed ejection fraction of 15% to 20% with moderate left atrial enlargement, moderate right atrial enlargement, aortic valvar bioprosthetic valve with normal function, severe tricuspid regurgitation, mild pulmonic regurgitation. She has had minimally elevated cardiac enzymes. PAST MEDICAL HISTORY: Severe nonischemic cardiomyopathy, chronic atrial fibrillation, normal coronary arteries, hypercholesterolemia, type 2 diabetes, hypothyroidism, depression, and chronic kidney disease. OPERATIONS: ICD placement in 2013, tonsillectomy, appendectomy, cholecystectomy , breast biopsy, and TAVR. SOCIAL HISTORY: She does not smoke or drink. 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 HOME MEDICATIONS: 1. Allopurinol 100 b.i.d. 2. Aspirin 81 daily. 3. Atorvastatin 20 at bedtime. 4. Carvedilol 6.25 b.i.d. 5. Digoxin 0.125 daily. 6. Lexapro 10 mg daily. 7. Ferrous sulfate 325 daily. 8. Glipizide 5 mg b.i.d. 9. Levemir 22 units daily. 10. Levothyroxine 112 mcg daily. 11. Melatonin 5 mg at bedtime. 12. KCl 10 mEq daily. 13. Torsemide 20 q.a.m. 14. Warfarin 2.5 daily. ALLERGIES: NONE. REVIEW OF SYSTEMS: A 10-point review of systems is otherwise unremarkable. PHYSICAL EXAMINATION: VITAL SIGNS: Blood pressure 93/48 and pulse of 81. HEENT: PERRL. NECK: Supple. CHEST: Reveals crackles. CARDIOVASCULAR: S1 and S2 normal with a 2/6 systolic murmur. EXTREMITIES: Reveal 1+ pretibial edema. NEUROLOGIC: Grossly intact. LABORATORY DATA: EKG reveals ventricular pacing. Sodium 139, potassium 4.4, chloride 100, carbon dioxide 24, BUN 19, and creatinine 1.46. Troponin I 0.414. BNP 1778.4. Hemoglobin 16.5, hematocrit 52.2, and white count 15,900. INR 1.2. IMPRESSION: 1. Acute on chronic systolic and diastolic heart failure. 2. Normal coronary arteries. 3. [id number] myocardial infarction, type 2. 4. Status post transcatheter aortic valve replacement. 5. Chronic atrial fibrillation. 6. Status post biventricular ICD. 7. Chronic kidney disease. 8. Hypercholesterolemia. 9. Diabetes. 10. Hypothyroidism. 11. Depression. 12. Hypotension. PLAN: Carvedilol will be held at this time. She will be gently diuresed and renal function will be watched closely. I do not feel any further cardiac evaluation is warranted at this time. Also, she is hypotensive and cultures have been drawn. She is negative for influenza A and B and Strep A. Respiratory virus is negative. COVID is still pending. Job ID: [id number] [facility]
[2019-09-14] MEDS ORDERED: Acetaminophen 325 MG TAB PO PRN (22:12)
[2019-09-15 04:43] LABS: #Eosinphils 0.1 thou/uL (0.0-0.7); #Lymphocytes 1.3 thou/uL (1.20-3.40); #Monocytes 0.6 thou/uL (0.11-0.59); #Neutrophils 8.2 thou/uL (1.40-6.50); %Basophils 0.4 % (0.0-1.0); %Eosinophils 1.4 % (0.0-10.0); %Lymphocytes 12.7 % (21.0-51.0); %Monocytes 5.9 % (0.0-10.0); %Neutrophils 79.6 % (42.0-75.0); Mean Corpuscular HGB CONC 31.5 g/dL (32.0-36.0); Mean Corpuscular Hemoglobin 31.2 pg (27.0-31.0); Mean Corpuscular Volume 99.1 fL (78.0-98.0); Platelet Count 142 thou/uL (130-400); RBC Distribution Width 14.3 % (11.5-14.5); White Blood Cell (WBC) Count 10.3 thou/uL (4.8-10.8)
[2019-09-15] MEDS ORDERED: Vancomycin HCl 750 MG in Sodium Chloride 0.9% 250 ML 250 ML IVPB SCH (05:00)
[2019-09-15 05:12] LABS: ALT (SGPT) 19 U/L (8-55); AST (SGOT) 26 U/L (5-34); Albumin 3.2 g/dL (3.4-4.8); Alkaline Phosphatase 77 U/L (40-110); Anion Gap 16 mmol/L (10-20); BUN (Urea Nitrogen) 25 mg/dL (9.8-20.1); Bilirubin, Total 1.5 mg/dL (0.2-1.2); Calc. Creatinine Clearance 31 mL/min (70-130); Calcium 9.5 mg/dL (7.8-10.44); Carbon Dioxide 26 mmol/L (23-31); Chloride 101 mmol/L (98-107); Estimated GFR-MDRD 31; Glucose 87 mg/dL (83-110); Potassium 3.7 mmol/L (3.5-5.1); Protein, Total 6.2 g/dL (6.0-8.3); Sodium 139 mmol/L (136-145)
[2019-09-15] MEDS ORDERED: Cefepime 1 GM in Sodium Chloride 0.9% 100 ML IVPB SCH (09:00)
--- NOTE | 2019-09-15 09:36 | CT ---
CT OF THE CHEST WITHOUT CONTRAST: HISTORY: Chest pain, shortness of breath, and pneumonia. TECHNIQUE: Multiple contiguous axial images were obtained in a CT of the chest without contrast. FINDINGS: There is a large hiatal hernia. Scattered multifocal airspace opacities are seen in the lungs. This is slightly more prominent in the lingula on today's examination. There is atelectasis in both lung basis. Trace bilateral pleural effusions are seen. The patient is status post aortic valve repair. Calcifications are seen in the coronary arteries. A pacemaker is seen with its leads in the right atrium, right ventricle, and coronary sinus. No hilar or mediastinal lymphadenopathy are appreciated on this limited noncontrast examination. Degenerative changes are seen in the spine. The visualized subdiaphragmatic structures are unremarka ble. The chest wall soft tissues are unremarkable. IMPRESSION: Multifocal pneumonia. Given the large hiatal hernia, there is concern for aspiration as a cause for the patient's pneumonia. POS: EAA
[2019-09-15] MEDS: Aspirin 325 mg Enteric Coated Tablet PO SCH (09:48)
[2019-09-15] MEDS: Furosemide 40 MG/4 ML VIAL SLOW IVP SCH (09:49)
--- NOTE | 2019-09-15 20:32 | PDOC.HOSPP ---
- Subjective Encounter Date: 09/15/19 Subjective: The patient is feeling better. Coronavirus test results are negative. - Objective Vital Signs & Weight: Vital Signs (12 hours) Temp Pulse Pulse Pulse Resp BP BP 09/15/19 19:10 98.4 F 68 18 09/15/19 15:23 97.4 F L 75 18 09/15/19 11:11 97.6 F 77 16 09/15/19 10:40 81 73 113/52 L 132/66 09/15/19 09:28 97.7 F 71 18 BP BP Pulse Ox Pulse Ox Pulse Ox 09/15/19 19:10 142/81 H 94 L 09/15/19 15:23 138/73 132/60 96 09/15/19 11:11 130/66 95 09/15/19 10:40 92 L 95 09/15/19 09:28 116/55 L 93 L Weight Weight 156 lb 3.2 oz I&O: 09/14/19 09/15/19 09/16/19 06:59 06:59 06:59 Intake Total 580 Output Total 550 900 Balance 30 -900 Result Diagrams: 09/15/19 04:30 09/15/19 04:30 Additional Labs: Accuchecks 09/15/19 09/15/19 09/15/19 16:19 10:57 05:48 POC Glucose 150 H 160 H 90 09/14/19 21:31 POC Glucose 186 H Hospitalist ROS - Medication Medications: Active Medications Generic Name Dose Route Start Last Admin Trade Name Bookerq PRN Reason Stop Dose Admin Acetaminophen 650 mg 09/14/19 22:12 09/15/19 00:06 Tylenol PO 650 mg Q4H PRN Administration Headache/Fever or Pain Aspirin 325 mg 09/14/19 09:00 09/15/19 09:48 Ecotrin PO 325 mg DAILY TYREL Administration Furosemide 40 mg 09/14/19 09:00 09/15/19 09:49 Lasix SLOW IVP 40 mg DAILY TYREL Administration - Exam General Appearance: NAD, awake alert ENT: normocephalic atraumatic Neck: supple, no JVD Heart: RRR Respiratory: rhonchi Gastrointestinal: soft, non-tender, non-distended Extremities: no cyanosis, no clubbing Neurological: cranial nerve grossly intact, no focal deficits Hosp A/P (1) Aspiration pneumonia Code(s): J69.0 - PNEUMONITIS DUE TO INHALATION OF FOOD AND VOMIT Status: Acute (2) Acute on chronic systolic (congestive) heart failure Code(s): I50.23 - ACUTE ON CHRONIC SYSTOLIC (CONGESTIVE) HEART FAILURE Status : Acute (3) Chronic kidney disease stage 3 Code(s): N18.3 - CHRONIC KIDNEY DISEASE, STAGE 3 (MODERATE) Status: Chronic - Plan Respiratory status improving. Patient is diuresing well. Coronavirus test is negative. CT scan of the chest showing bilateral infiltrates with large hiatal hernia suggesting aspiration. Change antibiotics to Unasyn.
[2019-09-15] MEDS: Ampicillin/Sulbactam 1.5 GM in Sodium Chloride 0.9% 100 ML IVPB SCH (23:59)
[2019-09-16 04:53] LABS: Anion Gap 18 mmol/L (10-20); BUN (Urea Nitrogen) 25 mg/dL (9.8-20.1); Calc. Creatinine Clearance 33 mL/min (70-130); Calcium 9.7 mg/dL (7.8-10.44); Carbon Dioxide 24 mmol/L (23-31); Chloride 99 mmol/L (98-107); Estimated GFR-MDRD 33; Glucose 104 mg/dL (83-110); Potassium 3.6 mmol/L (3.5-5.1); Sodium 137 mmol/L (136-145)
[2019-09-16 04:55] LABS: Vancomycin, Trough 13.5 ug/mL
[2019-09-16] MEDS: Ampicillin/Sulbactam 1.5 GM in Sodium Chloride 0.9% 100 ML IVPB SCH ×3 (05:21→17:03)
[2019-09-16] MEDS: Aspirin 325 mg Enteric Coated Tablet PO SCH (09:57)
[2019-09-16] MEDS: Furosemide 40 MG/4 ML VIAL SLOW IVP SCH (09:57)
--- NOTE | 2019-09-16 12:19 | PDOC.HOSPP ---
- Subjective Encounter Date: 09/16/19 Subjective: Complained of feeling bad and hurting all over. - Objective Vital Signs & Weight: Vital Signs (12 hours) Temp Pulse Pulse Pulse Resp BP BP 09/16/19 11:23 98.7 F 70 16 09/16/19 10:25 74 70 166/90 H 143/93 H 09/16/19 09:59 09/16/19 07:14 97.4 F L 75 16 09/16/19 03:10 98.8 F 70 17 BP BP Pulse Ox Pulse Ox Pulse Ox 09/16/19 11:23 145/85 H 98 09/16/19 10:25 96 91 L 09/16/19 09:59 100 09/16/19 07:14 167/107 H 100 09/16/19 03:10 176/96 H 94 L Weight Weight 149 lb I&O: 09/15/19 09/16/19 09/17/19 06:59 06:59 06:59 Intake Total 580 440 Output Total 550 2050 Balance 30 -1610 Result Diagrams: 09/15/19 04:30 09/16/19 04:10 Additional Labs: Accuchecks 09/16/19 09/15/19 09/15/19 11:29 20:50 16:19 POC Glucose 168 H 142 H 150 H Hospitalist ROS - Medication Medications: Active Medications Generic Name Dose Route Start Last Admin Trade Name Freq PRN Reason Stop Dose Admin Acetaminophen 650 mg 09/14/19 22:12 09/15/19 00:06 Tylenol PO 650 mg Q4H PRN Administration Headache/Fever or Pain Aspirin 325 mg 09/14/19 09:00 09/16/19 09:57 Ecotrin PO 325 mg DAILY TYREL Administration Furosemide 40 mg 09/14/19 09:00 09/16/19 09:57 Lasix SLOW IVP 40 mg DAILY TYREL Administration Ampicillin Sodium/Sulbactam 100 mls @ 200 mls/hr 09/15/19 23:59 09/16/19 05: 21 Sodium 1.5 gm/ Sodium Chloride IVPB 100 mls Q6HR TYREL Administration - Exam General Appearance: awake alert Neck: supple, no JVD Heart: RRR, no murmur, no gallops, no rubs Respiratory: no tachypnea, rhonchi Gastrointestinal: soft, non-tender, non-distended, normal bowel sounds Hosp A/P (1) Aspiration pneumonia Code(s): J69.0 - PNEUMONITIS DUE TO INHALATION OF FOOD AND VOMIT Status: Acute (2) Acute on chronic systolic (congestive) heart failure Code(s): I50.23 - ACUTE ON CHRONIC SYSTOLIC (CONGESTIVE) HEART FAILURE Status : Acute (3) Chronic kidney disease stage 3 Code(s): N18.3 - CHRONIC KIDNEY DISEASE, STAGE 3 (MODERATE) Status: Chronic - Plan Respiratory status improving. Patient is diuresing well. Coronavirus test is negative. CT scan of the chest showing bilateral infiltrates with large hiatal hernia suggesting aspiration. Change antibiotics to Unasyn. PT and OT evaluation. CHeck CBC and procalcitonin tomorrow.
--- NOTE | 2019-09-16 13:43 | EKG ---
Test Reason : Blood Pressure : / mmHG Vent. Rate : 096 BPM Atrial Rate : 090 BPM P-R Int : 000 ms QRS Dur : 144 ms QT Int : 408 ms P-R-T Axes : 000 -43 022 degrees QTc Int : 515 ms Electronic ventricular pacemaker Confirmed by GUY PALAFOX ([id number]), managing editor ARGENIS HOUSE ([id number]) on 09/16/2019 1:42:51 PM Referred By: Confirmed By:GUY PALAFOX
[2019-09-16] MEDS: Carvedilol 6.25 MG TAB PO SCH (16:48)
--- NOTE | 2019-09-16 17:28 | PQF ---
CLINICAL DOCUMENTATION IMPROVEMENT CLARIFICATION FORM: ICD-10 Updated PLEASE DO AN ADDENDUM TO THE PROGRESS NOTE WITH ANY DOCUMENTATION UPDATES OR ADDITIONS AND CARRY THROUGH TO DC SUMMARY. THANK YOU. DATE: 09/16/2019 ATTN: Dr. Alvarez Please exercise your independent, professional judgment in responding to the clarification form. Clinical indicators are provided on the bottom of this form for your review Please check appropriate box(s) to clarify if the following diagnosis has been ruled in or ruled out: SEPSIS [ >] Ruled in diagnosis [ ] Continue to treat [ ] Resolved [ ] Ruled out diagnosis [ ] Improving [ ] Cannot rule out diagnosis [ ] Other diagnosis [ ] Unable to determine In addition, please specify: Present on Admission (POA): [ > ] Yes [ ] No [ ] Unable to determine For continuity of documentation, please document condition throughout progress notes and discharge summary. Thank You. CLINICAL INDICATORS - SIGNS / SYMPTOMS / LABS / RESULTS AND LOCATION IN MR ER Record 09/13 VS: BP 183/107, Pulse 95 Resp. 23, O2 sat 91 RA, Temp 98.3 DX: Sepsis Acute CHF exacerbation H&P 09/13: VS: The pt had a temperature of 100.1 before she came to the ER. LAB: WBC count is 15.8 Assessment: Sepsis ? pneumonia 09/15 (Kim) Aspiration pneumonia Acute on chronic systolic CHF CKD 3 RISKS: H&P 09/13: 79 yo with PMH of cardiomyopathy, CKD, DM 2, HTN. Pacemaker/ AICD. Sepsis. Pneumonia, Suspected COVID-2019. (test is negative) TREATMENT: MAR: Order 09/13-09/14: IV Vancomycin 750 mg. MAR: Order 09/13-09/14: Maxipime IV 1 gm MAR: Order 09/14: Unasyn 1.5 gm IV q 6 hr Thank you, Alexsandra (This form is maintained as a part of the permanent medical record) 2014 [employer]. All Rights Reserved Alexsandra Calix RN, BSN [email or web address]
[2019-09-17] MEDS: Ampicillin/Sulbactam 1.5 GM in Sodium Chloride 0.9% 100 ML IVPB SCH ×5 (00:21→23:10)
[2019-09-17 05:37] LABS: Hemoglobin 14.9 g/dL (12.0-16.0); Mean Corpuscular HGB CONC 30.9 g/dL (32.0-36.0); Mean Corpuscular Hemoglobin 30.6 pg (27.0-31.0); Mean Corpuscular Volume 99.1 fL (78.0-98.0); Mean Platelet Volume 9.2 fL (7.4-10.4); Platelet Count 170 thou/uL (130-400); RBC Distribution Width 14.6 % (11.5-14.5); Red Blood Cell (RBC) Count 4.87 mill/uL (4.20-5.40); White Blood Cell (WBC) Count 6.3 thou/uL (4.8-10.8)
[2019-09-17 05:38] LABS: Band 1 % (5-11); Eosinophils 5 % (0-10); Lymphocytes 19 % (21-51); MDiff Complete? YES; Monocytes 7 % (0-10); Neutrophil 68 % (42-75); Platelet Morphology Comment Appears Adequate
[2019-09-17 05:41] VITALS: BMI 24.0
[2019-09-17 05:42] LABS: Anion Gap 16 mmol/L (10-20); BUN (Urea Nitrogen) 23 mg/dL (9.8-20.1); Calc. Creatinine Clearance 34 mL/min (70-130); Calcium 9.6 mg/dL (7.8-10.44); Carbon Dioxide 27 mmol/L (23-31); Chloride 99 mmol/L (98-107); Estimated GFR-MDRD 38; Glucose 92 mg/dL (83-110); Potassium 3.5 mmol/L (3.5-5.1); Sodium 138 mmol/L (136-145)
[2019-09-17] MEDS ORDERED: Levothyroxine Sodium 112 MCG TAB PO SCH (09:00)
[2019-09-17] MEDS: Furosemide 40 MG/4 ML VIAL SLOW IVP SCH (09:06)
[2019-09-17] MEDS: Digoxin 0.125 MG TAB PO SCH (09:06)
[2019-09-17] MEDS: Carvedilol 6.25 MG TAB PO SCH ×2 (09:06→16:33)
[2019-09-17] MEDS: Aspirin 325 mg Enteric Coated Tablet PO SCH (09:06)
--- NOTE | 2019-09-17 20:16 | PDOC.HOSPP ---
- Subjective Encounter Date: 09/17/19 Subjective: Feeling better. - Objective Vital Signs & Weight: Vital Signs (12 hours) Temp Pulse Pulse Pulse Resp BP BP 09/17/19 19:56 97.6 F 76 16 09/17/19 16:33 132/90 09/17/19 15:00 97.5 F L 70 16 09/17/19 10:55 98.4 F 69 18 09/17/19 10:20 89 70 158/96 H 09/17/19 09:16 69 70 155/85 H 09/17/19 09:06 71 132/90 BP BP BP Pulse Ox Pulse Ox 09/17/19 19:56 156/80 H 98 09/17/19 16:33 09/17/19 15:00 139/90 96 09/17/19 10:55 124/73 97 09/17/19 10:20 163/84 H 98 09/17/19 09:16 163/84 H 09/17/19 09:06 Weight Weight 144 lb 1.6 oz I&O: 09/16/19 09/17/19 09/18/19 06:59 06:59 06:59 Intake Total 440 240 900 Output Total 2049 1999 0 Balance -1610 -1760 900 Result Diagrams: 09/17/19 05:10 09/17/19 05:10 Additional Labs: Accuchecks 09/17/19 09/17/19 09/17/19 16:15 10:55 03:32 POC Glucose 129 H 141 H 103 Hospitalist ROS - Medication Medications: Active Medications Generic Name Dose Route Start Last Admin Trade Name Mckinley PRN Reason Stop Dose Admin Acetaminophen 650 mg 09/14/19 22:12 09/15/19 00:06 Tylenol PO 650 mg Q4H PRN Administration Headache/Fever or Pain Aspirin 325 mg 09/14/19 09:00 09/17/19 09:06 Ecotrin PO 325 mg DAILY TYREL Administration Carvedilol 6.25 mg 09/16/19 17:00 09/17/19 16:33 Coreg PO 6.25 mg BID-WM TYREL Administration Digoxin 0.125 mg 09/17/19 09:00 09/17/19 09:06 Lanoxin PO 0.125 mg DAILY TYREL Administration Furosemide 40 mg 09/14/19 09:00 09/17/19 09:06 Lasix SLOW IVP 09/17/19 23:59 40 mg DAILY TYREL Administration Ampicillin Sodium/Sulbactam 100 mls @ 200 mls/hr 09/15/19 23:59 09/17/19 16: 33 Sodium 1.5 gm/ Sodium Chloride IVPB 100 mls Q6HR TYREL Administration Insulin Human Lispro 0 units 09/14/19 05:15 09/16/19 12:09 Humalog SC 2 unit .MILD SLIDING SCALE PRN Administration Mild Correctional Scale - Exam General Appearance: awake alert ENT: normocephalic atraumatic Neck: supple, no JVD Heart: RRR, no murmur, no gallops, no rubs, normal peripheral pulses Respiratory: CTAB, no wheezes, no rales, no ronchi, normal chest expansion, no tachypnea, normal percussion Gastrointestinal: soft, non-tender, non-distended Hosp A/P (1) Aspiration pneumonia Code(s): J69.0 - PNEUMONITIS DUE TO INHALATION OF FOOD AND VOMIT Status: Acute (2) Acute on chronic systolic (congestive) heart failure Code(s): I50.23 - ACUTE ON CHRONIC SYSTOLIC (CONGESTIVE) HEART FAILURE Status : Acute (3) Chronic kidney disease stage 3 Code(s): N18.3 - CHRONIC KIDNEY DISEASE, STAGE 3 (MODERATE) Status: Chronic - Plan Respiratory status improving. Patient is diuresing well. Coronavirus test is negative. CT scan of the chest showing bilateral infiltrates with large hiatal hernia suggesting aspiration. Change antibiotics to Unasyn. PT and OT evaluation. Sepsis resolved. Ready for DC tomorrow.
[2019-09-18] MEDS: Ampicillin/Sulbactam 1.5 GM in Sodium Chloride 0.9% 100 ML IVPB SCH (05:01)
[2019-09-18 05:33] LABS: Anion Gap 17 mmol/L (10-20); BUN (Urea Nitrogen) 20 mg/dL (9.8-20.1); Calc. Creatinine Clearance 33 mL/min (70-130); Carbon Dioxide 29 mmol/L (23-31); Chloride 97 mmol/L (98-107); Estimated GFR-MDRD 38; Glucose 113 mg/dL (83-110); Potassium 3.2 mmol/L (3.5-5.1); Sodium 140 mmol/L (136-145)
[2019-09-18 05:51] LABS: Hemoglobin 15.8 g/dL (12.0-16.0); Mean Corpuscular HGB CONC 30.6 g/dL (32.0-36.0); Mean Corpuscular Hemoglobin 30.3 pg (27.0-31.0); RBC Distribution Width 14.5 % (11.5-14.5)
[2019-09-18 06:00] LABS: Band 6 % (5-11); Lymphocytes 22 % (21-51); MDiff Complete? YES; Mean Platelet Volume 8.8 fL (7.4-10.4); Monocytes 12 % (0-10); Neutrophil 59 % (42-75); Platelet Count 182 thou/uL (130-400); White Blood Cell (WBC) Count 6.1 thou/uL (4.8-10.8)
[2019-09-18] MEDS ORDERED: Levothyroxine Sodium 112 MCG TAB PO SCH (06:00)
[2019-09-18] MEDS ORDERED: Furosemide 40 MG TAB PO SCH (07:30)
[2019-09-18] MEDS ORDERED: Torsemide 20 MG TAB PO SCH (09:00)
[2019-09-18] MEDS: Aspirin 325 mg Enteric Coated Tablet PO SCH (10:14)
[2019-09-18] MEDS: Carvedilol 6.25 MG TAB PO SCH (10:14)
[2019-09-18] MEDS: Digoxin 0.125 MG TAB PO SCH (10:15)
--- NOTE | 2019-09-18 16:48 | DIS ---
DATE OF ADMISSION: 09/14/2019 DATE OF DISCHARGE: 09/18/2019 DISCHARGE DIAGNOSES: 1. Aspiration pneumonia. 2. Acute on chronic congestive heart failure. 3. Chronic kidney disease. DISCHARGE MEDICATIONS: 1. Augmentin 875/125 mg tablet twice daily for 3 days. 2. Aspirin 81 mg orally daily. 3. Allopurinol 100 mg orally twice daily. 4. Tylenol 650 mg orally every 6 hours as needed for pain or fever. 5. Atorvastatin 20 mg orally nightly. 6. Calcitriol 0.25 mcg orally daily. 7. Carvedilol 6.25 mg orally twice a day. 8. Vitamin D3, 2000 units daily. 9. Digoxin 0.125 mg orally daily. 10. Lexapro 10 mg orally daily. 11. Ferrous sulfate 325 mg orally daily. 12. Glipizide 5 mg orally twice daily. 13. Mucinex 2 teaspoon 600 mg orally t.i.d. 14. Levemir 22 units subcu daily. 15. Synthroid 112 mcg orally daily. 16. Melatonin 5 mg orally nightly. 17. Zofran 4 mg orally every 6 hours as needed for nausea. 18. Torsemide 20 mg orally daily. 19. Potassium chloride 10 mEq orally daily. 20. Warfarin 2.5 mg orally daily. HISTORY OF PRESENT ILLNESS AND HOSPITAL COURSE: The patient is an 79-year-old female with past medical history of cardiomyopathy with EF of 15% to 20%, chronic kidney disease, diabetes mellitus type 2, hyperlipidemia, hypertension, atrial fibrillation, aortic stenosis, hypothyroidism, and anemia, who was brought to the emergency department with complaints of fever and shortness of breath. The patient also complained of vomiting and cough. In the ER, evaluation revealed tachypnea and hypoxia. Chest x-ray revealed bilateral infiltrates and the patient was given a dose of Lasix and admitted to the hospital. Laboratory workup revealed elevated WBC count and CT scan of the chest revealed multifocal pneumonia with large hiatal hernia, rising concern for aspiration. The patient was managed with IV Unasyn for 3 days, leading to resolution of her symptoms and return of WBC count to normal. Will complete her treatment course with Augmentin as an outpatient. Job ID: [id number]
[2019-09-18 18:47] VITALS: BP 176/95; TEMP 97.7
== END 2019-09-18 16:26 | disposition home or self-care (01) | DRG 871 ==
LOC: ERS 03:19 → 2SW 05:07 → 2NO 09-18 01:35
PROVIDERS: ADMIT Internal Medicine; ATTEND Internal Medicine
DX: A41.9 Sepsis, unspecified organism (principal); J69.0 Pneumonitis due to inhalation of food and vomit; I50.43 Acute on chronic combined systolic (congestive) and diastolic (congestive) heart failure; I21.A1 Myocardial infarction type 2; I13.0 Hypertensive heart and chronic kidney disease with heart failure and stage 1 through stage 4 chronic kidney disease, or unspecified chronic kidney disease; I48.20 Chronic atrial fibrillation, unspecified; I42.8 Other cardiomyopathies; E78.00 Pure hypercholesterolemia, unspecified; N18.3 Chronic kidney disease, stage 3 (moderate); K44.9 Diaphragmatic hernia without obstruction or gangrene; I35.0 Nonrheumatic aortic (valve) stenosis; I95.9 Hypotension, unspecified; E11.22 Type 2 diabetes mellitus with diabetic chronic kidney disease; E78.5 Hyperlipidemia, unspecified; E03.9 Hypothyroidism, unspecified; D63.1 Anemia in chronic kidney disease; Z90.49 Acquired absence of other specified parts of digestive tract; Z79.01 Long term (current) use of anticoagulants; Z95.2 Presence of prosthetic heart valve; F32.9 Major depressive disorder, single episode, unspecified
CPT/HCPCS: 36415; 36416; 51701; 70450; 70486; 71045; 71250; 80048; 80053; 80202; 81003; 81015; 82550; 82553; 83605; 83880; 84145; 84484; 85007; 85025; 85027; 85610; 85730; 87040; 87081; 87430; 87633; 87804; 93005; 93798; 96365; 96375; A4353; J0295; J0692; J1940; J3370; J3490; J7050; U0001

== ENCOUNTER 2020-04-12 08:06 | Outpatient (CLI) | payer MEDICARE ==
--- NOTE | 2020-04-12 09:15 | ULT ---
Ultrasound of theabdomen: 04/12/2020 COMPARISON:None available HISTORY:Flank pain TECHNIQUE: Multiplanar grayscale sonographic imaging of theabdomen provided FINDINGS:Imaged pancreas unremarkable. Distal body and tail obscured by bowel gas. No focal liver lesion or intrahepatic biliary dilatation is seen. The hepatic parenchyma is echogenic and somewhat heterogeneous suggesting hepatocellular disease. The common bile duct measures 3 mm, within normal limits. The right kidney measures 9.6 cm in craniocaudal dimension and demonstrates no evidence for stone, hy dronephrosis, or mass lesion. There is a 1.7 cm cyst in the medial aspect of the right kidney. Left kidney measures 9.2 cm in craniocaudal dimension and demonstrates no evidence for stone, hydronephros is, or mass. Probable subcentimeter lateral left renal cyst. Spleen measures up to 10.2 cm, within normal limits. There is questionable small volume free fluid posterior to the right lobe of the liver. The patient is status post cholecystectomy. IMPRESSION:No acute findings. Incidental findings as detailed above.
== END 2020-04-12 08:07 | disposition home or self-care (01) ==
LOC: BICULT 08:06
PROVIDERS: ATTEND Family Medicine
DX: R10.9 Unspecified abdominal pain (principal); Z90.49 Acquired absence of other specified parts of digestive tract
CPT/HCPCS: 93975

== ENCOUNTER 2020-10-19 22:10 | Inpatient (IN) | payer MEDICARE ==
[2020-10-19] MEDS ORDERED: Morphine 4 MG/ML VIAL ONE (22:26)
[2020-10-19] MEDS ORDERED: Lidocaine 1% w/Epinephrine 1:100K 20 ML VIAL ONE (22:26)
[2020-10-19] MEDS ORDERED: CEFAZOLIN 1 GM VIAL ONE (22:26)
[2020-10-19 23:13] LABS: #Eosinphils 0.1 thou/uL (0.0-0.7); #Lymphocytes 1.8 thou/uL (1.20-3.40); #Monocytes 1.1 thou/uL (0.11-0.59); #Neutrophils 14.8 thou/uL (1.40-6.50); %Eosinophils 0.3 % (0.0-10.0); %Lymphocytes 10.3 % (21.0-51.0); %Monocytes 6.1 % (0.0-10.0); %Neutrophils 83.3 % (42.0-75.0); Hemoglobin 15.2 g/dL (12.0-16.0); Mean Corpuscular HGB CONC 31.1 g/dL (32.0-36.0); Mean Corpuscular Hemoglobin 31.3 pg (27.0-31.0); Mean Platelet Volume 8.5 fL (7.4-10.4); Platelet Count 168 thou/uL (130-400); RBC Distribution Width 14.2 % (11.5-14.5); Red Blood Cell (RBC) Count 4.86 mill/uL (4.20-5.40); White Blood Cell (WBC) Count 17.7 thou/uL (4.8-10.8)
[2020-10-19] MEDS ORDERED: Boostrix 0.5 ML (Tdap) VIAL ONE (23:13)
[2020-10-19 23:16] LABS: ALT (SGPT) 22 U/L (8-55); AST (SGOT) 31 U/L (5-34); Albumin 3.9 g/dL (3.4-4.8); Alkaline Phosphatase 123 U/L (40-110); Anion Gap 19 mmol/L (10-20); BUN (Urea Nitrogen) 15 mg/dL (9.8-20.1); Bilirubin, Total 1.7 mg/dL (0.2-1.2); Calc. Creatinine Clearance 0 mL/min (70-130); Calcium 9.8 mg/dL (7.8-10.44); Carbon Dioxide 23 mmol/L (23-31); Chloride 101 mmol/L (98-107); Globulin 4.1 g/dL (2.4-3.5); Sodium 139 mmol/L (136-145)
[2020-10-19 23:24] LABS: Glucose 39 mg/dL (83-110); INR-International Normal Ratio 2.8; PTT 47.4 sec (22.9-36.1)
[2020-10-19 23:49] LABS: CKMB 6.8 ng/mL (0-6.6)
[2020-10-20] MEDS ORDERED: Dextrose 50% Abboject 50 ML SYRINGE ONE (00:17)
[2020-10-20] MEDS ORDERED: Guaifenesin DM 100-10/5 ML UDCUP PO PRN (01:25)
[2020-10-20] MEDS ORDERED: Dextrose 50% Abboject 50 ML SYRINGE SLOW IVP PRN ×2 (01:25→12:46)
[2020-10-20] MEDS ORDERED: Ondansetron PF 4 MG/2 ML Vial IVP PRN (01:25)
[2020-10-20] MEDS ORDERED: Dextrose 5% in Water 1,000 ML IV PRN ×2 (01:25→12:46)
[2020-10-20] MEDS ORDERED: Bisacodyl 5 MG TAB PO PRN (01:25)
[2020-10-20] MEDS ORDERED: hydrALAZINE 20 MG/ML VIAL SLOW IVP PRN (01:31)
[2020-10-20] MEDS ORDERED: Dextrose 5% in Water 1,000 ML IV SCH ×2 (01:45→06:15)
[2020-10-20 02:27] LABS: Troponin I 0.133 ng/mL (< 0.028)
[2020-10-20 02:40] LABS: Hemoglobin 12.8 g/dL (12.0-16.0); Mean Corpuscular Hemoglobin 31.2 pg (27.0-31.0); Mean Platelet Volume 8.5 fL (7.4-10.4); Platelet Count 116 thou/uL (130-400); RBC Distribution Width 13.9 % (11.5-14.5); White Blood Cell (WBC) Count 13.6 thou/uL (4.8-10.8)
[2020-10-20 02:41] LABS: Band 19 % (5-11); Lymphocytes 4 % (21-51); MDiff Complete? YES; Macrocytosis SLIGHT = 6-15 cells (100X) (0-5/hpf); Monocytes 6 % (0-10); Neutrophil 71 % (42-75); Platelet Morphology Comment Appears Decreased
[2020-10-20 02:52] LABS: ALT (SGPT) 18 U/L (8-55); AST (SGOT) 24 U/L (5-34); Albumin 3.2 g/dL (3.4-4.8); Alkaline Phosphatase 99 U/L (40-110); Anion Gap 15 mmol/L (10-20); BUN (Urea Nitrogen) 16 mg/dL (9.8-20.1); Bilirubin, Total 1.4 mg/dL (0.2-1.2); Calc. Creatinine Clearance 0 mL/min (70-130); Carbon Dioxide 25 mmol/L (23-31); Chloride 100 mmol/L (98-107); Globulin 3.1 g/dL (2.4-3.5); Glucose 317 mg/dL (83-110); Potassium 4.4 mmol/L (3.5-5.1); Protein, Total 6.3 g/dL (5.8-8.1); Sodium 136 mmol/L (136-145)
[2020-10-20 02:56] LABS: Digoxin 0.53 ng/mL (0.8-2.0)
[2020-10-20 05:16] VITALS: BMI 26.1
[2020-10-20] MEDS: Acetaminophen 325 MG TAB PO PRN ×2 (06:23→18:07)
[2020-10-20] MEDS: Levothyroxine Sodium 112 MCG TAB PO SCH (06:24)
[2020-10-20 06:41] LABS: Troponin I 0.135 ng/mL (< 0.028)
[2020-10-20] MEDS ORDERED: Cefepime 1 GM in Sodium Chloride 0.9% 100 ML IVPB SCH (09:00)
[2020-10-20] MEDS: Calcitriol 0.25 MCG CAP PO SCH (09:14)
[2020-10-20] MEDS: Famotidine 20 MG TAB PO SCH (09:14)
[2020-10-20] MEDS: Cholecalciferol 1,000 UNITS (25 MCG) TAB PO SCH (09:14)
[2020-10-20] MEDS: Digoxin 0.125 MG TAB PO SCH (09:15)
[2020-10-20] MEDS: HYDROcodone/Acetaminophen 5/325 mg Tablet PO PRN ×2 (09:29→16:15)
[2020-10-20 12:50] LABS: Bacteria/HPF None Seen HPF (None Seen); Bilirubin Negative (Negative); Blood, Urine Negative (Negative); Clarity Clear (Clear); Glucose, Urine (Dipstick) Normal (Negative); Ketone, Urine Negative (Negative); Leukocyte Negative Leu/uL (Negative); Nitrite Negative (Negative); Protein, Urine (Dipstick) 10 mg/dL (Neg-Trace); RBC/HPF 0-3 HPF (0-3); Specific Gravity, Urine 1.018 (1.002-1.036); Urobilinogen Normal mg/dL (Less than 2)
[2020-10-20] MEDS ORDERED: Lantus 1000 UNITS/10 ML VIAL SC SCH (13:00)
[2020-10-20 14:50] LABS: SARS-CoV-2 PCR by NAA Not Detected (NotDetected)
[2020-10-20] MEDS: HumaLOG 300 UNITS/3 ML VIAL SC PRN (17:02)
[2020-10-20] MEDS ORDERED: Furosemide 20 MG/2 ML VIAL SLOW IVP SCH (18:15)
[2020-10-21] MEDS: Acetaminophen 325 MG TAB PO PRN (00:09)
[2020-10-21] MEDS: Melatonin 3 MG TAB PO PRN (00:10)
[2020-10-21 05:24] LABS: #Basophils 0.1 thou/uL (0.0-0.2); #Eosinphils 0.2 thou/uL (0.0-0.7); #Lymphocytes 1.8 thou/uL (1.20-3.40); #Monocytes 0.7 thou/uL (0.11-0.59); #Neutrophils 5.9 thou/uL (1.40-6.50); %Basophils 0.7 % (0.0-1.0); %Eosinophils 2.2 % (0.0-10.0); %Monocytes 7.5 % (0.0-10.0); %Neutrophils 68.6 % (42.0-75.0); Hemoglobin 11.8 g/dL (12.0-16.0); Mean Corpuscular HGB CONC 31.5 g/dL (32.0-36.0); Mean Corpuscular Hemoglobin 31.6 pg (27.0-31.0); Platelet Count 128 thou/uL (130-400); RBC Distribution Width 13.9 % (11.5-14.5); Red Blood Cell (RBC) Count 3.75 mill/uL (4.20-5.40); White Blood Cell (WBC) Count 8.6 thou/uL (4.8-10.8)
[2020-10-21 05:34] LABS: Anion Gap 14 mmol/L (10-20); BUN (Urea Nitrogen) 26 mg/dL (9.8-20.1); Calc. Creatinine Clearance 25 mL/min (70-130); Calcium 8.9 mg/dL (7.8-10.44); Carbon Dioxide 25 mmol/L (23-31); Chloride 97 mmol/L (98-107); Glucose 86 mg/dL (83-110); Potassium 3.9 mmol/L (3.5-5.1); Sodium 132 mmol/L (136-145)
[2020-10-21] MEDS: Levothyroxine Sodium 112 MCG TAB PO SCH (05:39)
[2020-10-21] MEDS ORDERED: Furosemide 20 MG/2 ML VIAL SLOW IVP SCH (09:00)
[2020-10-21] MEDS: Digoxin 0.125 MG TAB PO SCH (10:18)
[2020-10-21] MEDS: Famotidine 20 MG TAB PO SCH (10:19)
[2020-10-21] MEDS: Calcitriol 0.25 MCG CAP PO SCH (10:19)
[2020-10-21] MEDS: Cholecalciferol 1,000 UNITS (25 MCG) TAB PO SCH (10:20)
[2020-10-21] MEDS: Ferrous Sulfate 325 MG TAB PO SCH (10:21)
[2020-10-21] MEDS: Escitalopram Oxalate 10 mg Tablet PO SCH (10:22)
[2020-10-21] MEDS ORDERED: Torsemide 10 MG TAB PO SCH (10:45)
[2020-10-21] MEDS: Albumin 25% 25 GM/100 ML BOT IVPB SCH ×2 (12:04→17:28)
[2020-10-21 12:46] LABS: Creatinine, Urine 47.43 mg/dL (47-110); Sodium, Urine Less than 20 mmol/L (Not Available)
[2020-10-21] MEDS ORDERED: Lantus 1000 UNITS/10 ML VIAL SC SCH (15:45)
[2020-10-21 17:52] LABS: Hemoglobin A1c 6.3 % (4.0-6.0)
[2020-10-21] MEDS: Atorvastatin Calcium 20 MG TAB PO SCH (20:16)
[2020-10-21] MEDS: HYDROcodone/Acetaminophen 5/325 mg Tablet PO PRN (20:36)
[2020-10-21] MEDS ORDERED: Carvedilol 6.25 MG TAB PO SCH (22:00)
[2020-10-22] MEDS: Albumin 25% 25 GM/100 ML BOT IVPB SCH ×2 (00:07→05:26)
[2020-10-22 04:58] LABS: #Eosinphils 0.1 thou/uL (0.0-0.7); #Lymphocytes 1.7 thou/uL (1.20-3.40); #Monocytes 0.7 thou/uL (0.11-0.59); #Neutrophils 6.1 thou/uL (1.40-6.50); %Basophils 0.5 % (0.0-1.0); %Eosinophils 0.8 % (0.0-10.0); %Lymphocytes 19.4 % (21.0-51.0); %Neutrophils 71.4 % (42.0-75.0); Hemoglobin 12.4 g/dL (12.0-16.0); Mean Corpuscular HGB CONC 31.2 g/dL (32.0-36.0); Mean Corpuscular Volume 99.2 fL (78.0-98.0); Mean Platelet Volume 8.9 fL (7.4-10.4); Platelet Count 125 thou/uL (130-400); Red Blood Cell (RBC) Count 4.02 mill/uL (4.20-5.40); White Blood Cell (WBC) Count 8.6 thou/uL (4.8-10.8)
[2020-10-22 05:20] LABS: Anion Gap 15 mmol/L (10-20); BUN (Urea Nitrogen) 27 mg/dL (9.8-20.1); Calc. Creatinine Clearance 27 mL/min (70-130); Calcium 9.3 mg/dL (7.8-10.44); Carbon Dioxide 26 mmol/L (23-31); Chloride 98 mmol/L (98-107); Glucose 125 mg/dL (83-110); Potassium 4.1 mmol/L (3.5-5.1); Sodium 135 mmol/L (136-145)
[2020-10-22] MEDS: Levothyroxine Sodium 112 MCG TAB PO SCH (05:26)
[2020-10-22] MEDS: Digoxin 0.125 MG TAB PO SCH (08:38)
[2020-10-22] MEDS: Cholecalciferol 1,000 UNITS (25 MCG) TAB PO SCH (08:40)
[2020-10-22] MEDS: Escitalopram Oxalate 10 mg Tablet PO SCH (08:40)
[2020-10-22] MEDS: Calcitriol 0.25 MCG CAP PO SCH (08:41)
[2020-10-22] MEDS: Famotidine 20 MG TAB PO SCH (08:41)
[2020-10-22] MEDS: Ferrous Sulfate 325 MG TAB PO SCH (08:41)
[2020-10-22] MEDS: Allopurinol 100 MG TAB PO SCH ×2 (08:41→20:47)
[2020-10-22] MEDS: Carvedilol 6.25 MG TAB PO SCH ×2 (08:41→20:47)
[2020-10-22] MEDS: Torsemide 20 MG TAB PO SCH (08:41)
[2020-10-22] MEDS: Acetaminophen 325 MG TAB PO PRN ×2 (08:44→20:11)
[2020-10-22] MEDS ORDERED: Lantus 1000 UNITS/10 ML VIAL SC SCH (09:00)
[2020-10-22] MEDS: HumaLOG 300 UNITS/3 ML VIAL SC PRN (10:52)
[2020-10-22] MEDS: Atorvastatin Calcium 20 MG TAB PO SCH (20:47)
[2020-10-22] MEDS: Melatonin 3 MG TAB PO PRN (20:47)
[2020-10-22] MEDS ORDERED: Atorvastatin Calcium 10 MG TAB PO SCH (21:00)
[2020-10-23] MEDS: Levothyroxine Sodium 112 MCG TAB PO SCH (05:51)
[2020-10-23 06:02] LABS: Anion Gap 13 mmol/L (10-20); BUN (Urea Nitrogen) 32 mg/dL (9.8-20.1); Calc. Creatinine Clearance 27 mL/min (70-130); Calcium 10.5 mg/dL (7.8-10.44); Carbon Dioxide 28 mmol/L (23-31); Chloride 99 mmol/L (98-107); Glucose 131 mg/dL (83-110); Potassium 3.9 mmol/L (3.5-5.1); Sodium 136 mmol/L (136-145)
[2020-10-23] MEDS: Famotidine 20 MG TAB PO SCH (09:04)
[2020-10-23] MEDS: Carvedilol 6.25 MG TAB PO SCH ×2 (09:04→19:58)
[2020-10-23] MEDS: Digoxin 0.125 MG TAB PO SCH (09:04)
[2020-10-23] MEDS: Ferrous Sulfate 325 MG TAB PO SCH (09:04)
[2020-10-23] MEDS: Escitalopram Oxalate 10 mg Tablet PO SCH (09:04)
[2020-10-23] MEDS: Calcitriol 0.25 MCG CAP PO SCH (09:04)
[2020-10-23] MEDS: Torsemide 20 MG TAB PO SCH (09:04)
[2020-10-23] MEDS: Allopurinol 100 MG TAB PO SCH ×2 (09:04→19:58)
[2020-10-23] MEDS: Cholecalciferol 1,000 UNITS (25 MCG) TAB PO SCH (09:04)
[2020-10-23] MEDS: Acetaminophen 325 MG TAB PO PRN (09:08)
[2020-10-23] MEDS: Atorvastatin Calcium 20 MG TAB PO SCH (19:58)
[2020-10-24] MEDS: Levothyroxine Sodium 112 MCG TAB PO SCH (05:23)
[2020-10-24 06:30] LABS: Anion Gap 16 mmol/L (10-20); BUN (Urea Nitrogen) 34 mg/dL (9.8-20.1); Calc. Creatinine Clearance 29 mL/min (70-130); Calcium 10.5 mg/dL (7.8-10.44); Carbon Dioxide 29 mmol/L (23-31); Chloride 98 mmol/L (98-107); Glucose 130 mg/dL (83-110); Potassium 3.5 mmol/L (3.5-5.1); Sodium 139 mmol/L (136-145)
[2020-10-24] MEDS: Allopurinol 100 MG TAB PO SCH (08:45)
[2020-10-24] MEDS: Carvedilol 6.25 MG TAB PO SCH (08:45)
[2020-10-24] MEDS: Torsemide 20 MG TAB PO SCH (08:45)
[2020-10-24] MEDS: Famotidine 20 MG TAB PO SCH (08:45)
[2020-10-24] MEDS: Ferrous Sulfate 325 MG TAB PO SCH (08:45)
[2020-10-24] MEDS: Calcitriol 0.25 MCG CAP PO SCH (08:46)
[2020-10-24] MEDS: Escitalopram Oxalate 10 mg Tablet PO SCH (08:46)
[2020-10-24] MEDS: Cholecalciferol 1,000 UNITS (25 MCG) TAB PO SCH (08:46)
[2020-10-24] MEDS: Acetaminophen 325 MG TAB PO PRN (08:46)
[2020-10-24] MEDS: Digoxin 0.125 MG TAB PO SCH (08:47)
[2020-10-24] MEDS: HumaLOG 300 UNITS/3 ML VIAL SC PRN (12:02)
[2020-10-24 15:33] VITALS: BP 132/73; TEMP 97.6
== END 2020-10-24 16:25 | disposition home health service (06) | DRG 637 ==
LOC: ERS 22:10 → 2SE 10-20 01:01
PROVIDERS: ADMIT Internal Medicine; ATTEND Family Medicine
PROC: 0HQ1XZZ Repair Face Skin, External Approach (ICD-10-PCS; principal; 2020-10-20)
DX: E11.649 Type 2 diabetes mellitus with hypoglycemia without coma (principal); I21.A1 Myocardial infarction type 2; I50.33 Acute on chronic diastolic (congestive) heart failure; S06.0X9A Concussion with loss of consciousness of unspecified duration, initial encounter; I13.0 Hypertensive heart and chronic kidney disease with heart failure and stage 1 through stage 4 chronic kidney disease, or unspecified chronic kidney disease; I42.8 Other cardiomyopathies; I48.20 Chronic atrial fibrillation, unspecified; S01.111A Laceration without foreign body of right eyelid and periocular area, initial encounter; N25.81 Secondary hyperparathyroidism of renal origin; N17.9 Acute kidney failure, unspecified; H05.231 Hemorrhage of right orbit; E11.22 Type 2 diabetes mellitus with diabetic chronic kidney disease; N18.30 Chronic kidney disease, stage 3 unspecified; E78.5 Hyperlipidemia, unspecified; E03.9 Hypothyroidism, unspecified; I08.0 Rheumatic disorders of both mitral and aortic valves; F32.9 Major depressive disorder, single episode, unspecified; Z79.890 Hormone replacement therapy; Z95.810 Presence of automatic (implantable) cardiac defibrillator; Z79.4 Long term (current) use of insulin; Z79.01 Long term (current) use of anticoagulants; Z79.899 Other long term (current) drug therapy; Z79.82 Long term (current) use of aspirin; Z90.49 Acquired absence of other specified parts of digestive tract; T38.3X5A Adverse effect of insulin and oral hypoglycemic [antidiabetic] drugs, initial encounter
CPT/HCPCS: 12013; 36415; 36416; 70450; 70486; 71045; 71250; 72125; 76770; 80048; 80053; 80162; 81001; 82553; 82570; 83036; 84300; 84443; 84484; 85007; 85025; 85027; 85610; 85730; 87635; 90471; 90715; 90732; 93005; 93306; 93970; 94640; 94760; 96365; 96366; 96367; 96375; G0009; J0690; J0692; J1815; J1956; J2270; J2405; J3490; J7620; P9047; U0003; U0005

== ENCOUNTER 2021-02-11 19:33 | Inpatient (IN) | payer MEDICARE ==
[2021-02-11] MEDS ORDERED: Ondansetron PF 4 MG/2 ML Vial ONE (19:38)
[2021-02-11] MEDS ORDERED: Morphine 4 MG/ML VIAL ONE (19:52)
[2021-02-11 20:23] LABS: #Lymphocytes 1.2 thou/uL (1.20-3.40); #Monocytes 0.6 thou/uL (0.11-0.59); #Neutrophils 8.7 thou/uL (1.40-6.50); %Basophils 0.2 % (0.0-1.0); %Eosinophils 0.1 % (0.0-10.0); %Lymphocytes 11.6 % (21.0-51.0); %Monocytes 6.1 % (0.0-10.0); %Neutrophils 82.1 % (42.0-75.0); Hemoglobin 15.3 g/dL (12.0-16.0); Mean Corpuscular HGB CONC 32.3 g/dL (32.0-36.0); Mean Corpuscular Hemoglobin 31.8 pg (27.0-31.0); Mean Corpuscular Volume 98.6 fL (78.0-98.0); Mean Platelet Volume 8.9 fL (7.4-10.4); Platelet Count 160 thou/uL (130-400); RBC Distribution Width 13.6 % (11.5-14.5); Red Blood Cell (RBC) Count 4.81 mill/uL (4.20-5.40); White Blood Cell (WBC) Count 10.6 thou/uL (4.8-10.8)
[2021-02-11 21:29] LABS: CKMB 3.6 ng/mL (0-6.6)
[2021-02-11 21:32] LABS: Bacteria/HPF None Seen HPF (None Seen); Bilirubin Negative (Negative); Blood, Urine Negative (Negative); Clarity Clear (Clear); Glucose, Urine (Dipstick) 50 mg/dL (Negative); Ketone, Urine 10 mg/dL (Negative); Leukocyte Negative Leu/uL (Negative); Nitrite Negative (Negative); Protein, Urine (Dipstick) 100 mg/dL (Neg-Trace); RBC/HPF None Seen HPF (0-3); Specific Gravity, Urine 1.018 (1.002-1.036); Squamous Epithelial None Seen HPF (0-3); Urobilinogen Normal mg/dL (Less than 2); WBC/HPF 0-3 HPF (0-3); pH, Urine 6.5 (5.0-9.0)
[2021-02-11 21:57] LABS: Albumin 3.8 g/dL (3.4-4.8)
[2021-02-11 21:58] LABS: Chloride 105 mmol/L (98-107); Potassium 4.5 mmol/L (3.5-5.1); Sodium 136 mmol/L (136-145)
[2021-02-11 22:00] LABS: Globulin 3.9 g/dL (2.4-3.5); Glucose 220 mg/dL (83-110); Protein, Total 7.7 g/dL (5.8-8.1)
[2021-02-11 22:01] LABS: Anion Gap 19 mmol/L (10-20); Carbon Dioxide 17 mmol/L (23-31)
[2021-02-11 22:03] LABS: Alkaline Phosphatase 123 U/L (40-110); Calc. Creatinine Clearance 0 mL/min (70-130)
[2021-02-11 22:04] LABS: BUN (Urea Nitrogen) 28 mg/dL (9.8-20.1)
[2021-02-11 22:05] LABS: AST (SGOT) 67 U/L (5-34)
[2021-02-11 22:32] LABS: ALT (SGPT) 44 U/L (8-55); Lipase 25 U/L (8-78)
[2021-02-11] MEDS ORDERED: HumaLOG 300 UNITS/3 ML VIAL SC PRN (22:53)
[2021-02-11] MEDS ORDERED: Dextrose 5% in Water 1,000 ML IV PRN (22:53)
[2021-02-11] MEDS ORDERED: Bisacodyl 5 MG TAB PO PRN (22:53)
[2021-02-11] MEDS ORDERED: Dextrose 50% Abboject 50 ML SYRINGE SLOW IVP PRN (22:53)
[2021-02-11] MEDS ORDERED: HYDROcodone/Acetaminophen 5/325 mg Tablet PO PRN (22:53)
[2021-02-11] MEDS ORDERED: Furosemide 40 MG/4 ML VIAL SLOW IVP SCH (23:00)
[2021-02-11] MEDS ORDERED: Aspirin 325 MG TAB PO SCH (23:00)
[2021-02-11 23:19] LABS: Lactic Acid 1.6 mmol/L (0.5-2.2)
[2021-02-11 23:51] LABS: Magnesium 1.8 mg/dL (1.6-2.6)
[2021-02-12] LABS: Critical Call Chem Troponin I RESULT DECREASING; Troponin I 0.367 ng/mL (< 0.028)
[2021-02-12 01:41] VITALS: BMI 23.1
[2021-02-12 03:00] LABS: Hemoglobin 14.3 g/dL (12.0-16.0); MDiff Complete? YES; Mean Corpuscular HGB CONC 32.7 g/dL (32.0-36.0); Mean Corpuscular Hemoglobin 32.2 pg (27.0-31.0); Mean Corpuscular Volume 98.6 fL (78.0-98.0); Mean Platelet Volume 9.2 fL (7.4-10.4); Platelet Count 137 thou/uL (130-400); RBC Distribution Width 13.7 % (11.5-14.5); Red Blood Cell (RBC) Count 4.43 mill/uL (4.20-5.40); White Blood Cell (WBC) Count 9.4 thou/uL (4.8-10.8)
[2021-02-12 03:01] LABS: Band 3 % (5-11); Lymphocytes 14 % (21-51); Monocytes 4 % (0-10); Neutrophil 79 % (42-75); Platelet Morphology Comment Appears Adequate; RBC Morphology Normal
[2021-02-12 03:04] LABS: Albumin 3.4 g/dL (3.4-4.8); Anion Gap 15 mmol/L (10-20); BUN (Urea Nitrogen) 30 mg/dL (9.8-20.1); BUN/Creatinine Ratio 16.13; Calc. Creatinine Clearance 23 mL/min (70-130); Calcium 9.9 mg/dL (7.8-10.44); Carbon Dioxide 20 mmol/L (23-31); Chloride 104 mmol/L (98-107); Glucose 159 mg/dL (83-110); Potassium 4.4 mmol/L (3.5-5.1); Sodium 135 mmol/L (136-145)
[2021-02-12 03:05] LABS: Critical Call Chem Troponin I RESULT DECREASING; Magnesium 1.7 mg/dL (1.6-2.6); Troponin I 0.343 ng/mL (< 0.028)
[2021-02-12] MEDS: Levothyroxine Sodium 112 MCG TAB PO SCH (06:02)
[2021-02-12] MEDS: Allopurinol 100 MG TAB PO SCH ×2 (08:25→22:33)
[2021-02-12] MEDS: Digoxin 0.125 MG TAB PO SCH (08:25)
[2021-02-12] MEDS: Aspirin Chewable 81 MG TAB PO SCH (08:26)
[2021-02-12] MEDS: Carvedilol 6.25 MG TAB PO SCH ×2 (08:26→22:34)
[2021-02-12] MEDS: Escitalopram Oxalate 10 mg Tablet PO SCH (08:26)
[2021-02-12] MEDS: Furosemide 40 MG/4 ML VIAL SLOW IVP SCH (08:27)
[2021-02-12] MEDS: Ferrous Sulfate 325 MG TAB PO SCH (08:27)
[2021-02-12] MEDS: Ondansetron PF 4 MG/2 ML Vial IVP PRN ×2 (18:11→23:40)
[2021-02-12 19:54] LABS: SARS-CoV-2 PCR by NAA Not Detected (NotDetected)
[2021-02-12] MEDS: Acetaminophen 325 MG TAB PO PRN (22:34)
[2021-02-12] MEDS: Atorvastatin Calcium 20 MG TAB PO SCH (22:34)
[2021-02-13] MEDS: Levothyroxine Sodium 112 MCG TAB PO SCH (05:55)
[2021-02-13] MEDS: Ondansetron PF 4 MG/2 ML Vial IVP PRN ×2 (05:55→22:50)
[2021-02-13] MEDS: glipiZIDE 5 MG TAB PO SCH (08:23)
[2021-02-13] MEDS: Furosemide 40 MG/4 ML VIAL SLOW IVP SCH (08:25)
[2021-02-13] MEDS: Ferrous Sulfate 325 MG TAB PO SCH (08:25)
[2021-02-13] MEDS: Allopurinol 100 MG TAB PO SCH ×2 (08:25→20:08)
[2021-02-13] MEDS: Aspirin Chewable 81 MG TAB PO SCH (08:25)
[2021-02-13] MEDS: Escitalopram Oxalate 10 mg Tablet PO SCH (08:25)
[2021-02-13] MEDS: Digoxin 0.125 MG TAB PO SCH (08:25)
[2021-02-13] MEDS: Carvedilol 6.25 MG TAB PO SCH ×2 (08:26→20:08)
[2021-02-13] MEDS: Acetaminophen 325 MG TAB PO PRN (09:55)
[2021-02-13] MEDS ORDERED: Sodium Chloride 0.9% (PF) 10 ML VIAL FS PRN (14:00)
[2021-02-13] MEDS: Pantoprazole 40 MG VIAL IVP SCH (20:07)
[2021-02-13] MEDS: Atorvastatin Calcium 20 MG TAB PO SCH (20:08)
[2021-02-14] MEDS: Levothyroxine Sodium 112 MCG TAB PO SCH (05:59)
[2021-02-14] MEDS ORDERED: CEFAZOLIN 1 GM VIAL ONE (06:49)
[2021-02-14] MEDS ORDERED: Lidocaine 1% (PF) 30 ML VIAL ONE (06:49)
[2021-02-14] MEDS ORDERED: Gentamicin 80 MG/2 ML VIAL ONE (06:49)
[2021-02-14] MEDS ORDERED: Midazolam HCl 2 mg/2 ml Vial ONE (07:51)
[2021-02-14] MEDS ORDERED: Fentanyl 100 MCG/2 ML VIAL ONE (07:51)
[2021-02-14] MEDS ORDERED: Cephalexin 250 MG CAP PO SCH (09:00)
[2021-02-14] MEDS: Carvedilol 6.25 MG TAB PO SCH (10:42)
[2021-02-14] MEDS: Escitalopram Oxalate 10 mg Tablet PO SCH (10:42)
[2021-02-14] MEDS: Digoxin 0.125 MG TAB PO SCH (10:42)
[2021-02-14] MEDS: Aspirin Chewable 81 MG TAB PO SCH (10:44)
[2021-02-14] MEDS: Allopurinol 100 MG TAB PO SCH (10:44)
[2021-02-14] MEDS: glipiZIDE 5 MG TAB PO SCH (10:44)
[2021-02-14] MEDS: Furosemide 40 MG/4 ML VIAL SLOW IVP SCH (10:45)
[2021-02-14] MEDS: Pantoprazole 40 MG VIAL IVP SCH (10:46)
[2021-02-14 12:35] VITALS: BP 170/81; TEMP 97.3
== END 2021-02-14 15:35 | disposition hospice, home (50) | DRG 245 ==
LOC: ERS 19:33 → 2NO 23:06 → PACU-TCU 02-14 14:49
PROVIDERS: ADMIT Internal Medicine; ATTEND Internal Medicine
PROC: 4B02XTZ Measurement of Cardiac Defibrillator, External Approach (ICD-10-PCS; principal; 2021-02-11)
PROC: 0JH608Z Insertion of Defibrillator Generator into Chest Subcutaneous Tissue and Fascia, Open Approach (ICD-10-PCS; 2021-02-14)
PROC: 0JPT0PZ Removal of Cardiac Rhythm Related Device from Trunk Subcutaneous Tissue and Fascia, Open Approach (ICD-10-PCS; 2021-02-14)
DX: R07.9 Chest pain, unspecified (principal); I50.33 Acute on chronic diastolic (congestive) heart failure; I13.0 Hypertensive heart and chronic kidney disease with heart failure and stage 1 through stage 4 chronic kidney disease, or unspecified chronic kidney disease; I47.2 Ventricular tachycardia; N18.4 Chronic kidney disease, stage 4 (severe); N17.9 Acute kidney failure, unspecified; I48.20 Chronic atrial fibrillation, unspecified; Z20.822 Contact with and (suspected) exposure to COVID-19; E11.22 Type 2 diabetes mellitus with diabetic chronic kidney disease; E03.9 Hypothyroidism, unspecified; I08.1 Rheumatic disorders of both mitral and tricuspid valves; F32.9 Major depressive disorder, single episode, unspecified; E78.5 Hyperlipidemia, unspecified; R79.89 Other specified abnormal findings of blood chemistry; D63.1 Anemia in chronic kidney disease; I25.5 Ischemic cardiomyopathy; Z95.2 Presence of prosthetic heart valve; Z95.810 Presence of automatic (implantable) cardiac defibrillator; Z79.84 Long term (current) use of oral hypoglycemic drugs; Z79.899 Other long term (current) drug therapy; Z90.49 Acquired absence of other specified parts of digestive tract; Z91.81 History of falling
CPT/HCPCS: 33264; 36415; 36416; 51701; 71045; 74150; 80053; 80069; 81003; 81015; 82553; 83605; 83690; 83735; 84443; 84484; 85007; 85025; 85027; 93005; 94760; 96374; 96375; 99152; C1882; C9113; J0690; J1580; J1940; J2001; J2250; J2270; J2405; J3010; U0003; U0005

== ENCOUNTER 2021-02-15 09:49 | Inpatient (IN) | payer MEDICARE ==
[2021-02-15 10:34] LABS: #Lymphocytes 1.2 thou/uL (1.20-3.40); #Monocytes 0.9 thou/uL (0.11-0.59); %Basophils 0.2 % (0.0-1.0); %Eosinophils 0.2 % (0.0-10.0); %Lymphocytes 7.7 % (21.0-51.0); %Monocytes 5.9 % (0.0-10.0); Hemoglobin 15.5 g/dL (12.0-16.0); Mean Corpuscular HGB CONC 32.2 g/dL (32.0-36.0); Mean Corpuscular Hemoglobin 31.5 pg (27.0-31.0); Mean Platelet Volume 8.6 fL (7.4-10.4); Platelet Count 188 thou/uL (130-400); RBC Distribution Width 13.9 % (11.5-14.5); Red Blood Cell (RBC) Count 4.93 mill/uL (4.20-5.40); White Blood Cell (WBC) Count 15.1 thou/uL (4.8-10.8)
[2021-02-15 10:57] LABS: ALT (SGPT) 29 U/L (8-55); AST (SGOT) 37 U/L (5-34); Albumin 3.4 g/dL (3.4-4.8); Alkaline Phosphatase 98 U/L (40-110); Anion Gap 26 mmol/L (10-20); BUN (Urea Nitrogen) 101 mg/dL (9.8-20.1); Bilirubin, Total 1.1 mg/dL (0.2-1.2); Calc. Creatinine Clearance 0 mL/min (70-130); Calcium 8.6 mg/dL (7.8-10.44); Carbon Dioxide 17 mmol/L (23-31); Chloride 93 mmol/L (98-107); Globulin 3.5 g/dL (2.4-3.5); Glucose 167 mg/dL (83-110); Potassium 6.4 mmol/L (3.5-5.1); Protein, Total 6.9 g/dL (5.8-8.1); Sodium 130 mmol/L (136-145)
[2021-02-15 11:19] LABS: CKMB 4.9 ng/mL (0-6.6)
[2021-02-15] MEDS ORDERED: Ondansetron PF 4 MG/2 ML Vial ONE (15:24)
[2021-02-15] MEDS ORDERED: HumaLOG 300 UNITS/3 ML VIAL SC PRN ×2 (16:19)
[2021-02-15] MEDS ORDERED: Dextrose 50% Abboject 50 ML SYRINGE SLOW IVP PRN (16:19)
[2021-02-15] MEDS ORDERED: Dextrose 5% in Water 1,000 ML IV PRN (16:19)
[2021-02-15] MEDS ORDERED: Sodium Chloride 0.9% 1,000 ML IV SCH (16:45)
[2021-02-15] MEDS ORDERED: Pantoprazole 40 MG VIAL IVP SCH (17:09)
[2021-02-15 17:11] LABS: Troponin I 0.208 ng/mL (< 0.028)
[2021-02-15 17:56] LABS: Anion Gap 27 mmol/L (10-20); BUN (Urea Nitrogen) 106 mg/dL (9.8-20.1); Calc. Creatinine Clearance 0 mL/min (70-130); Carbon Dioxide 16 mmol/L (23-31); Chloride 93 mmol/L (98-107); Glucose 150 mg/dL (83-110); Potassium 6.3 mmol/L (3.5-5.1); Sodium 130 mmol/L (136-145)
[2021-02-15 19:10] LABS: Troponin I 0.225 ng/mL (< 0.028)
[2021-02-15 21:18] VITALS: BMI 22.9
[2021-02-15] MEDS: Cephalexin 250 MG CAP PO SCH (21:20)
[2021-02-16 05:22] LABS: #Lymphocytes 1.4 thou/uL (1.20-3.40); #Neutrophils 10.8 thou/uL (1.40-6.50); %Basophils 0.1 % (0.0-1.0); %Eosinophils 0.2 % (0.0-10.0); %Lymphocytes 10.3 % (21.0-51.0); %Monocytes 7.7 % (0.0-10.0); %Neutrophils 81.7 % (42.0-75.0); Hemoglobin 15.9 g/dL (12.0-16.0); Mean Corpuscular HGB CONC 32.2 g/dL (32.0-36.0); Mean Corpuscular Hemoglobin 31.8 pg (27.0-31.0); Mean Corpuscular Volume 98.5 fL (78.0-98.0); Mean Platelet Volume 8.8 fL (7.4-10.4); Platelet Count 228 thou/uL (130-400); RBC Distribution Width 13.9 % (11.5-14.5); White Blood Cell (WBC) Count 13.3 thou/uL (4.8-10.8)
[2021-02-16 05:45] LABS: Anion Gap 27 mmol/L (10-20); BUN (Urea Nitrogen) 101 mg/dL (9.8-20.1); Calc. Creatinine Clearance 6 mL/min (70-130); Calcium 8.6 mg/dL (7.8-10.44); Carbon Dioxide 15 mmol/L (23-31); Chloride 94 mmol/L (98-107); Glucose 143 mg/dL (83-110); Potassium 5.9 mmol/L (3.5-5.1); Sodium 130 mmol/L (136-145)
[2021-02-16] MEDS ORDERED: Sodium Chloride 0.9% 1,000 ML IV SCH (08:27)
[2021-02-16] MEDS: Sodium Chloride 0.9% 1,000 ML IV SCH (08:46)
[2021-02-16] MEDS: Acetaminophen 325 MG TAB PO PRN ×2 (11:45→16:00)
[2021-02-16 11:46] LABS: Digoxin 1.51 ng/mL (0.8-2.0)
[2021-02-16] MEDS: Isosorbide Dinitrate 5 MG TAB PO SCH ×3 (15:59→21:06)
[2021-02-16] MEDS: hydrALAZINE 25 MG TAB PO SCH ×3 (15:59→21:06)
[2021-02-16] MEDS: Carvedilol 6.25 MG TAB PO SCH ×2 (15:59→17:01)
[2021-02-16] MEDS ORDERED: Morphine 2 MG/ML VIAL SLOW IVP SCH (16:00)
[2021-02-16] MEDS: Ondansetron PF 4 MG/2 ML Vial IVP PRN (16:57)
[2021-02-16] MEDS: Atorvastatin Calcium 20 MG TAB PO SCH (21:06)
[2021-02-16] MEDS: Cephalexin 250 MG CAP PO SCH (21:07)
[2021-02-17] MEDS: Acetaminophen 325 MG TAB PO PRN ×2 (01:00→17:53)
[2021-02-17] MEDS: Ondansetron PF 4 MG/2 ML Vial IVP PRN ×3 (01:00→17:53)
[2021-02-17] MEDS: Sodium Chloride 0.9% 1,000 ML IV SCH ×3 (01:01→11:19)
[2021-02-17 05:22] LABS: Band 1 % (5-11); Eosinophils 1 % (0-10); Hemoglobin 15.5 g/dL (12.0-16.0); Lymphocytes 9 % (21-51); MDiff Complete? YES; Mean Corpuscular HGB CONC 31.9 g/dL (32.0-36.0); Mean Corpuscular Hemoglobin 31.4 pg (27.0-31.0); Mean Corpuscular Volume 98.4 fL (78.0-98.0); Mean Platelet Volume 8.5 fL (7.4-10.4); Metamyelocyte 1 % (0-0); Monocytes 10 % (0-10); Neutrophil 78 % (42-75); Platelet Count 191 thou/uL (130-400); RBC Distribution Width 14.1 % (11.5-14.5); Red Blood Cell (RBC) Count 4.92 mill/uL (4.20-5.40)
[2021-02-17 06:23] LABS: Anion Gap 26 mmol/L (10-20); BUN (Urea Nitrogen) 118 mg/dL (9.8-20.1); Calc. Creatinine Clearance 6 mL/min (70-130); Calcium 8.4 mg/dL (7.8-10.44); Carbon Dioxide 15 mmol/L (23-31); Chloride 98 mmol/L (98-107); Glucose 73 mg/dL (83-110); Potassium 5.5 mmol/L (3.5-5.1); Sodium 133 mmol/L (136-145)
[2021-02-17] MEDS: HYDROcodone/Acetaminophen 5/325 mg Tablet PO PRN (08:26)
[2021-02-17] MEDS: Digoxin 0.125 MG TAB PO SCH (08:26)
[2021-02-17] MEDS: Levothyroxine Sodium 112 MCG TAB PO SCH (08:27)
[2021-02-17] MEDS: Escitalopram Oxalate 10 mg Tablet PO SCH (08:27)
[2021-02-17] MEDS: Isosorbide Dinitrate 5 MG TAB PO SCH (08:27)
[2021-02-17] MEDS: hydrALAZINE 25 MG TAB PO SCH ×3 (08:27→21:31)
[2021-02-17] MEDS: Carvedilol 6.25 MG TAB PO SCH ×2 (08:27→17:53)
[2021-02-17] MEDS: Isosorbide Dinitrate 20 MG TAB PO SCH ×3 (10:19→21:31)
[2021-02-17] MEDS: Morphine 2 MG/ML VIAL SLOW IVP PRN (11:19)
[2021-02-17] MEDS: Atorvastatin Calcium 20 MG TAB PO SCH (21:31)
[2021-02-17] MEDS: Cephalexin 250 MG CAP PO SCH (21:31)
[2021-02-18] MEDS: Sodium Chloride 0.9% 1,000 ML IV SCH (01:09)
[2021-02-18] MEDS: hydrALAZINE 25 MG TAB PO SCH ×3 (09:06→21:01)
[2021-02-18] MEDS: Isosorbide Dinitrate 20 MG TAB PO SCH ×3 (09:06→21:01)
[2021-02-18] MEDS: Escitalopram Oxalate 10 mg Tablet PO SCH (09:07)
[2021-02-18] MEDS: Digoxin 0.125 MG TAB PO SCH (09:07)
[2021-02-18] MEDS: HYDROcodone/Acetaminophen 5/325 mg Tablet PO PRN (09:07)
[2021-02-18] MEDS: Carvedilol 6.25 MG TAB PO SCH ×2 (09:07→17:20)
[2021-02-18] MEDS: Levothyroxine Sodium 112 MCG TAB PO SCH (09:08)
[2021-02-18 10:20] LABS: #Eosinphils 0.2 thou/uL (0.0-0.7); #Monocytes 0.7 thou/uL (0.11-0.59); #Neutrophils 6.6 thou/uL (1.40-6.50); %Basophils 0.2 % (0.0-1.0); %Eosinophils 1.9 % (0.0-10.0); %Lymphocytes 12.1 % (21.0-51.0); %Monocytes 8.6 % (0.0-10.0); %Neutrophils 77.2 % (42.0-75.0); Hemoglobin 15.4 g/dL (12.0-16.0); Mean Corpuscular HGB CONC 32.8 g/dL (32.0-36.0); Mean Corpuscular Hemoglobin 32.2 pg (27.0-31.0); Mean Corpuscular Volume 98.2 fL (78.0-98.0); Mean Platelet Volume 8.3 fL (7.4-10.4); Platelet Count 161 thou/uL (130-400); RBC Distribution Width 14.2 % (11.5-14.5); White Blood Cell (WBC) Count 8.5 thou/uL (4.8-10.8)
[2021-02-18 10:40] LABS: Anion Gap 23 mmol/L (10-20); Calc. Creatinine Clearance 5 mL/min (70-130); Calcium 7.9 mg/dL (7.8-10.44); Carbon Dioxide 16 mmol/L (23-31); Chloride 99 mmol/L (98-107); Glucose 151 mg/dL (83-110); Potassium 5.4 mmol/L (3.5-5.1); Sodium 133 mmol/L (136-145)
[2021-02-18 10:51] LABS: BUN (Urea Nitrogen) 126 mg/dL (9.8-20.1)
[2021-02-18] MEDS: Morphine 2 MG/ML VIAL SLOW IVP PRN ×2 (11:56→17:20)
[2021-02-18] MEDS: Ondansetron PF 4 MG/2 ML Vial IVP PRN (11:57)
[2021-02-18] MEDS: Acetaminophen 325 MG TAB PO PRN (15:37)
[2021-02-18] MEDS: Atorvastatin Calcium 20 MG TAB PO SCH (21:01)
[2021-02-18] MEDS: Cephalexin 250 MG CAP PO SCH (21:01)
[2021-02-19 05:44] LABS: Anion Gap 23 mmol/L (10-20); Calc. Creatinine Clearance 5 mL/min (70-130); Calcium 7.8 mg/dL (7.8-10.44); Carbon Dioxide 15 mmol/L (23-31); Chloride 99 mmol/L (98-107); Glucose 91 mg/dL (83-110); Potassium 5.6 mmol/L (3.5-5.1); Sodium 131 mmol/L (136-145)
[2021-02-19 05:55] LABS: BUN (Urea Nitrogen) 128 mg/dL (9.8-20.1)
[2021-02-19 08:04] VITALS: TEMP 98.5
[2021-02-19] MEDS: Levothyroxine Sodium 112 MCG TAB PO SCH ×2 (08:28→08:50)
[2021-02-19] MEDS: Digoxin 0.125 MG TAB PO SCH ×2 (08:29→08:49)
[2021-02-19] MEDS: Carvedilol 6.25 MG TAB PO SCH ×2 (08:29→08:48)
[2021-02-19] MEDS: Isosorbide Dinitrate 20 MG TAB PO SCH ×2 (08:29→08:50)
[2021-02-19] MEDS: Morphine 2 MG/ML VIAL SLOW IVP PRN (08:30)
[2021-02-19 08:42] VITALS: BP 159/92
[2021-02-19] MEDS: hydrALAZINE 25 MG TAB PO SCH (08:45)
[2021-02-19] MEDS: Escitalopram Oxalate 10 mg Tablet PO SCH (08:49)
[2021-02-19] MEDS: Ondansetron PF 4 MG/2 ML Vial IVP PRN (09:00)
[2021-02-19] MEDS ORDERED: Morphine 2 MG/ML VIAL SLOW IVP PRN (09:56)
[2021-02-19] MEDS ORDERED: Morphine 2 MG/ML VIAL SLOW IVP SCH (10:00)
[2021-02-20] MEDS ORDERED: Pantoprazole 40 MG VIAL IVP SCH (09:00)
== END 2021-02-19 11:49 | disposition hospice, inpatient (51) | DRG 682 ==
LOC: ERS 09:49 → ERHOLD 15:32 → 2NO 20:57
PROVIDERS: ADMIT Family Medicine; ATTEND Hospitalist
DX: N17.9 Acute kidney failure, unspecified (principal); I50.23 Acute on chronic systolic (congestive) heart failure; I13.0 Hypertensive heart and chronic kidney disease with heart failure and stage 1 through stage 4 chronic kidney disease, or unspecified chronic kidney disease; E87.1 Hypo-osmolality and hyponatremia; I48.21 Permanent atrial fibrillation; I42.8 Other cardiomyopathies; R07.9 Chest pain, unspecified; Z66 Do not resuscitate; N18.4 Chronic kidney disease, stage 4 (severe); D63.1 Anemia in chronic kidney disease; F32.9 Major depressive disorder, single episode, unspecified; R79.89 Other specified abnormal findings of blood chemistry; I44.7 Left bundle-branch block, unspecified; I05.0 Rheumatic mitral stenosis; G89.29 Other chronic pain; E78.5 Hyperlipidemia, unspecified; E03.9 Hypothyroidism, unspecified; E11.22 Type 2 diabetes mellitus with diabetic chronic kidney disease; E87.5 Hyperkalemia; D72.829 Elevated white blood cell count, unspecified; K21.9 Gastro-esophageal reflux disease without esophagitis; I25.10 Atherosclerotic heart disease of native coronary artery without angina pectoris; E78.00 Pure hypercholesterolemia, unspecified; R29.6 Repeated falls; Z95.2 Presence of prosthetic heart valve; Z90.49 Acquired absence of other specified parts of digestive tract; Z95.810 Presence of automatic (implantable) cardiac defibrillator; Z79.84 Long term (current) use of oral hypoglycemic drugs; Z79.899 Other long term (current) drug therapy
CPT/HCPCS: 36415; 36416; 71045; 80048; 80053; 80162; 82553; 83735; 84484; 85025; 87040; 93005; 96374; C9113; J2270; J2405; J7050

== ENCOUNTER 2021-02-19 11:54 | Inpatient (IN) | payer OTHER ==
[2021-02-19 12:27] VITALS: BMI 22.9
[2021-02-19] MEDS ORDERED: Morphine 4 MG/ML VIAL SLOW IVP PRN (12:44)
[2021-02-19] MEDS ORDERED: Lorazepam 2 MG/ML VIAL SLOW IVP PRN ×2 (12:45)
[2021-02-19] MEDS ORDERED: Ondansetron PF 4 MG/2 ML Vial IVP PRN (12:45)
[2021-02-19] MEDS ORDERED: Acetaminophen 650 MG Suppository PR PRN (12:45)
[2021-02-19] MEDS ORDERED: Scopolamine 1.5 mg/72 hour Patch TOP PRN (12:45)
[2021-02-19] MEDS ORDERED: Morphine 10 MG/0.5 ML ORAL SYRINGE SL PRN (12:45)
[2021-02-19] MEDS ORDERED: Bisacodyl 10 MG SUPP PR PRN (12:45)
[2021-02-19] MEDS: Morphine 4 MG/ML VIAL SLOW IVP SCH ×6 (13:22→23:38)
[2021-02-19] MEDS ORDERED: Sodium Chloride 0.9% 10 ML ONE (17:19)
[2021-02-20] MEDS: Morphine 4 MG/ML VIAL SLOW IVP SCH ×6 (01:40→11:25)
[2021-02-20 07:54] VITALS: BP 119/58; TEMP 97.5
== END 2021-02-20 13:57 | disposition expired | DRG 951 ==
LOC: 2NO 11:54
PROVIDERS: ADMIT Family Medicine; ATTEND Family Medicine
DX: Z51.5 Encounter for palliative care (principal); Z66 Do not resuscitate; E87.1 Hypo-osmolality and hyponatremia; N17.9 Acute kidney failure, unspecified; I50.22 Chronic systolic (congestive) heart failure; I13.0 Hypertensive heart and chronic kidney disease with heart failure and stage 1 through stage 4 chronic kidney disease, or unspecified chronic kidney disease; E87.5 Hyperkalemia; R79.89 Other specified abnormal findings of blood chemistry; E11.22 Type 2 diabetes mellitus with diabetic chronic kidney disease; I48.91 Unspecified atrial fibrillation; E03.9 Hypothyroidism, unspecified; N18.9 Chronic kidney disease, unspecified; D72.829 Elevated white blood cell count, unspecified; Z95.810 Presence of automatic (implantable) cardiac defibrillator; Z79.01 Long term (current) use of anticoagulants; Z95.2 Presence of prosthetic heart valve; Z79.899 Other long term (current) drug therapy; Z79.890 Hormone replacement therapy; Z79.84 Long term (current) use of oral hypoglycemic drugs; Z90.49 Acquired absence of other specified parts of digestive tract
CPT/HCPCS: J2060; J2270